=== PATIENT | female | born 1950 | race Caucasian/White ===

== ENCOUNTER 2019-09-17 04:12 | Emergency (ER) | payer MEDICARE, OTHER ==
[~2019-09-17] VITALS: Ht 165.1 cm; Wt 63.2 kg
[~2019-09-17 04:12] MED LIST: HYDR-3973 PO; INSU100V36 SQ; INSU100V9 SQ; LEVO750T46 PO; LISI-600 PO; WALKERFR
[2019-09-17] MEDS ORDERED: CLIN-97 PO (04:40)
[2019-09-17 04:54] VITALS: BP 160/84
== END 2019-09-17 05:15 | disposition home or self-care (01) ==
LOC: ER 04:13
DX: L03.011 Cellulitis of right finger (principal); I10 Essential (primary) hypertension; E11.9 Type 2 diabetes mellitus without complications; M19.90 Unspecified osteoarthritis, unspecified site; Z85.9 Personal history of malignant neoplasm, unspecified; Z90.710 Acquired absence of both cervix and uterus; Z88.8 Allergy status to other drugs, medicaments and biological substances; Z79.4 Long term (current) use of insulin; Z79.899 Other long term (current) drug therapy
CPT/HCPCS: 73130; 99283

== ENCOUNTER → 2020-02-19 | Emergency (ER) | payer MEDICARE ==
[~2020-02-19] VITALS: Ht 165.1 cm; Wt 61.4 kg
[~2020-02-19] MED LIST changes: +CLIN-97 PO; +HYDR-4383 PO; +HYDROcodone/acetaminophen 5mg/325mg tablet PO ONE; +ONDA4TAB6 PO; +ondansetron 4mg rapidly disintigrating tab PO ONE
[2020-02-19 14:33] VITALS: BP 167/83
== END | disposition home or self-care (01) ==
LOC: ER 14:20
DX: S52.614A Nondisplaced fracture of right ulna styloid process, initial encounter for closed fracture (principal); S52.501A Unspecified fracture of the lower end of right radius, initial encounter for closed fracture; M79.601 Pain in right arm; I10 Essential (primary) hypertension; E11.9 Type 2 diabetes mellitus without complications; M19.90 Unspecified osteoarthritis, unspecified site; M10.9 Gout, unspecified; Z85.9 Personal history of malignant neoplasm, unspecified; Z90.710 Acquired absence of both cervix and uterus; Z88.8 Allergy status to other drugs, medicaments and biological substances; Z79.2 Long term (current) use of antibiotics; Z79.4 Long term (current) use of insulin; Z79.899 Other long term (current) drug therapy; W18.39XA Other fall on same level, initial encounter; Y93.9 Activity, unspecified; Y92.89 Other specified places as the place of occurrence of the external cause; Y99.8 Other external cause status
CPT/HCPCS: 29125; 73110; 99283

== ENCOUNTER 2020-07-27 17:02 | Emergency (ER) | payer MEDICARE ==
[~2020-07-27] VITALS: Ht 165.1 cm; Wt 68.2 kg
[~2020-07-27 17:02] MED LIST changes: -HYDROcodone/acetaminophen 5mg/325mg tablet PO ONE; -LISI-600 PO; +LISI20TA28 PO; -ondansetron 4mg rapidly disintigrating tab PO ONE
[2020-07-27 18:24] LABS: BASOPHILS # (AUTO) 0.1 X10'3 (0-0.2); BASOPHILS % (AUTO) 1.2 % (0-1); EOSINOPHILS # (AUTO) 0.3 X10'3 (0-0.9); EOSINOPHILS % (AUTO) 4.1 % (0-6); HEMATOCRIT 33.1 % (35.0-45.0); HEMOGLOBIN 11.4 g/dl (12.0-16.0); LYMPHOCYTES # (AUTO) 1.9 X10'3 (1.1-4.8); LYMPHOCYTES % (AUTO) 24.5 % (21-51); MEAN CORPUSCULAR HEMOGLOBIN 28.4 PG (27.0-31.0); MEAN CORPUSCULAR HGB CONC 34.6 g/dL (33.0-36.5); MEAN CORPUSCULAR VOLUME 82.1 FL (78-98); MONOCYTES # (AUTO) 0.7 X10'3 (0-0.9); MONOCYTES % (AUTO) 9.5 % (2-12); NEUTROPHILS # (AUTO) 4.6 X10'3 (1.8-7.7); NEUTROPHILS % (AUTO) 60.7 % (42-75); PLATELET COUNT 242 X10'3 (140-440); RED BLOOD COUNT 4.03 X10'6 (4.20-5.60); RED CELL DISTRIBUTION WIDTH 12.9 % (11.5-14.5); WHITE BLOOD COUNT 7.5 X10'3 (4.5-11.0)
[2020-07-27 18:38] LABS: ALANINE AMINOTRANSFERASE 16 U/L (12-78); ALBUMIN 2.8 G/DL (3.4-5.0); ALBUMIN/GLOBULIN RATIO 0.6 (1.1-1.5); ALKALINE PHOSPHATASE 248 IU/L (46-116); ANION GAP 5 (8-16); ASPARTATE AMINO TRANSFERASE 12 U/L (10-37); BILIRUBIN,TOTAL 0.3 MG/DL (0.1-1.0); BLOOD UREA NITROGEN 27 MG/DL (7-18); BUN/CREATININE RATIO 30.3 (6.6-38.0); CALCIUM 9.2 MG/DL (8.5-10.1); CHLORIDE 99 MMOL/L (99-107); CREATININE 0.89 MG/DL (0.40-0.90); GLUCOSE 232 MG/DL (70-104); POTASSIUM 4.5 MMOL/L (3.5-5.1); SODIUM 135 MMOL/L (135-145); TOTAL CARBON DIOXIDE 31.4 MMOL/L (24-32); TOTAL PROTEIN 7.2 G/DL (6.4-8.2); eGFR 63 ML/MIN
[2020-07-27] MEDS ORDERED: mupirocin 2% ointment 22GM TP STA (18:59)
[2020-07-27] MEDS ORDERED: ketorolac tromethamine 15mg/ml inj. IM ONE (19:10)
[2020-07-27 19:57] VITALS: BP 167/87
== END 2020-07-27 19:45 | disposition home or self-care (01) ==
LOC: ER 17:03
DX: S91.001A Unspecified open wound, right ankle, initial encounter (principal); M25.571 Pain in right ankle and joints of right foot; M54.5 Low back pain; I10 Essential (primary) hypertension; E11.9 Type 2 diabetes mellitus without complications; M19.90 Unspecified osteoarthritis, unspecified site; M79.7 Fibromyalgia; M10.9 Gout, unspecified; Z90.710 Acquired absence of both cervix and uterus; Z85.9 Personal history of malignant neoplasm, unspecified; Z88.8 Allergy status to other drugs, medicaments and biological substances; Z79.2 Long term (current) use of antibiotics; Z79.4 Long term (current) use of insulin; Z79.899 Other long term (current) drug therapy; X58.XXXA Exposure to other specified factors, initial encounter; Y93.89 Activity, other specified; Y92.89 Other specified places as the place of occurrence of the external cause; Y99.8 Other external cause status
CPT/HCPCS: 36415; 73502; 73600; 80053; 85025; 96372; 99284; J1885

== ENCOUNTER 2021-01-05 02:29 | Inpatient (IN) | payer MEDICARE ==
[~2021-01-05] VITALS: Ht 165.1 cm; Wt 76.8 kg
[~2021-01-05 02:29] MED LIST changes: -CLIN-97 PO; -HYDR-3973 PO; -HYDR-4383 PO; -LEVO750T46 PO; -LISI20TA28 PO; -ONDA4TAB6 PO; -WALKERFR
[2021-01-05] MEDS ORDERED: morphine 4 MG/ML inj SYRINge IV ONE (02:50)
[2021-01-05 03:14] LABS: BASOPHILS # (AUTO) 0.1 X10'3 (0-0.2); BASOPHILS % (AUTO) 0.8 % (0-1); EOSINOPHILS # (AUTO) 0.2 X10'3 (0-0.9); EOSINOPHILS % (AUTO) 2.5 % (0-6); HEMATOCRIT 34.6 % (35.0-45.0); HEMOGLOBIN 11.8 g/dl (12.0-16.0); LYMPHOCYTES # (AUTO) 2.2 X10'3 (1.1-4.8); LYMPHOCYTES % (AUTO) 27.1 % (21-51); MEAN CORPUSCULAR HEMOGLOBIN 28.3 PG (27.0-31.0); MEAN CORPUSCULAR HGB CONC 34.1 g/dL (33.0-36.5); MEAN CORPUSCULAR VOLUME 83.1 FL (78-98); MONOCYTES # (AUTO) 0.6 X10'3 (0-0.9); MONOCYTES % (AUTO) 7.9 % (2-12); NEUTROPHILS % (AUTO) 61.7 % (42-75); PLATELET COUNT 339 X10'3 (140-440); RED BLOOD COUNT 4.17 X10'6 (4.20-5.60); RED CELL DISTRIBUTION WIDTH 12.7 % (11.5-14.5)
[2021-01-05 03:36] LABS: ALANINE AMINOTRANSFERASE 17 U/L (12-78); ALBUMIN 3.5 G/DL (3.4-5.0); ALBUMIN/GLOBULIN RATIO 0.8 (1.1-1.5); ALKALINE PHOSPHATASE 155 IU/L (46-116); ANION GAP 7 (8-16); ASPARTATE AMINO TRANSFERASE 17 U/L (10-37); BILIRUBIN,TOTAL 0.4 MG/DL (0.1-1.0); BLOOD UREA NITROGEN 43 MG/DL (7-18); BUN/CREATININE RATIO 44.8 (6.6-38.0); CALCIUM 9.1 MG/DL (8.5-10.1); CHLORIDE 102 MMOL/L (99-107); CREATININE 0.96 MG/DL (0.40-0.90); GLUCOSE 246 MG/DL (70-104); POTASSIUM 4.3 MMOL/L (3.5-5.1); SODIUM 140 MMOL/L (135-145); TOTAL CARBON DIOXIDE 30.9 MMOL/L (24-32); TOTAL PROTEIN 7.9 G/DL (6.4-8.2); eGFR 57 ML/MIN
--- NOTE | 2021-01-05 04:28 | NUR ---
pt is comfortably resting. equal rise and fall of chest
[2021-01-05] MEDS ORDERED: HYDROcodone/acetaminophen 5mg/325mg tablet PO PRN (05:15)
[2021-01-05] MEDS ORDERED: MESSAGE TO PHARMACY PO ONE (05:15)
[2021-01-05] MEDS ORDERED: morphine 2 MG/ML inj. syringe IV PRN (05:15)
[2021-01-05] MEDS ORDERED: potassium Cl 20 mEq SR tablet PO PRN ×2 (05:15)
[2021-01-05] MEDS ORDERED: potassium Cl 40MEQ/1/2NS 520ml 520 ML IV PRN ×2 (05:15)
[2021-01-05] MEDS ORDERED: mag hydrox/Alum hydrox/simeth 30ml oral suspension PO PRN (05:15)
[2021-01-05] MEDS ORDERED: magnesium Cl slow-release 64mg tablet PO PRN (05:15)
[2021-01-05] MEDS ORDERED: magnesium 2GM in 50ml NS 50 ML IV PRN (05:15)
[2021-01-05] MEDS ORDERED: dextrose 50%-water 50ml dispensing syringe IV PRN ×2 (05:15)
[2021-01-05] MEDS ORDERED: dextrose ORAL solution 15 GM/59 ML bottle PO PRN ×2 (05:15)
[2021-01-05] MEDS ORDERED: ondansetron/PF 4mg/2ml inj IV PRN (05:15)
[2021-01-05] MEDS ORDERED: acetaminophen 325mg tablet PO PRN ×2 (05:15)
[2021-01-05] MEDS ORDERED: glucagon, human recombinant 1mg kit SUBCUT PRN (05:15)
[2021-01-05] MEDS ORDERED: magnesium 4gm in 100ml NS 100 ML IV PRN (05:15)
[2021-01-05] MEDS ORDERED: magnesium hydroxide 30ml (MOM) UD suspension PO PRN (05:15)
[2021-01-05] MEDS: normal saline 1000ml 1,000 ML IV SCH ×2 (05:30→15:47)
[2021-01-05] MEDS ORDERED: LISI20TA28 PO (05:42)
--- NOTE | 2021-01-05 07:19 | NUR ---
RN TRIES TO CALL REPORT TO ORTHO BUT THE PHONE KEPT RINGING WITH NO ANSWER AFTER 10 MINUTES. THI RN CALLED THE FLOOR AGAIN AND THIS RN WAS TOLD THE RN WAS THE ONLY NURSE ON HER SIDE OF THE UNIT AND WAS PROBABLY IN A PATIENTS ROOM. tHIS RN WILL TRY TO CALL BACK IN ANOTHER 10 MINUTES.
--- NOTE | 2021-01-05 07:40 | NUR ---
I have received report from YARELI BALDWIN IN ER and had the opportunity to ask questions. WILL AWAIT PTS ARRIVAL TO THE FLOOR
--- NOTE | 2021-01-05 07:40 | NUR ---
I have received report from and had the opportunity to ask questions and assume patient care.
[2021-01-05 08:00] VITALS: BP 160/70
[2021-01-05] MEDS: heparin, porcine 5000 units/ml vial SQ SCH ×2 (08:00→19:28)
[2021-01-05] MEDS: K and/or MAG REPLACEMENT MC SCH ×2 (08:00→19:42)
[2021-01-05 09:47] LABS: HEMOGLOBIN A1C 10.7 % (4.5-6.2)
[2021-01-05 10:00] VITALS: BP 179/75
--- NOTE | 2021-01-05 11:27 | NUR ---
PAGER ID: [phone] MESSAGE: Patient Norma Spencer BP is 178/75. patient is asleep, also can she have a mcknight for her hip fracture. Leeann [phone]
--- NOTE | 2021-01-05 13:27 | NUR ---
DM consult: Pt with A1c 10.7%, just admitted today. Pt would benefit from DM education once stable. Pt last seen by RD 09/11 at previous admit for written and verbal DM education with A1c 10.5% at that time. Will continue to follow. Addendum: 01/05/21 at [address] Amended: Links added.
[2021-01-05] MEDS: HYDROcodone/acetaminophen 10/325mg tab PO PRN ×2 (13:43→19:29)
[2021-01-05] MEDS ORDERED: LIDOcaine 2% 10ml TOPICAL JELLY (Urojet) TP ONE (14:25)
[2021-01-05 15:51] VITALS: BP 151/71
[2021-01-05] MEDS: lisinopril 20mg tablet PO SCH (15:54)
[2021-01-05] MEDS ORDERED: ringers solution, lacted 1,000 ML IV ONE (17:25)
[2021-01-05 18:00] VITALS: BP 166/72
--- NOTE | 2021-01-05 18:34 | NUR ---
Problems reprioritized. Patient report given, questions answered & plan of care reviewed with YARELI WAITE.
[2021-01-05] MEDS ORDERED: temazepam 15mg capsule PO PRN (21:00)
[2021-01-05] MEDS: insulin glargine (Lantus) pen - multi-dose SQ SCH (21:16)
[2021-01-05 22:00] VITALS: BP 158/68
[2021-01-06] VITALS (19 sets, daily range): BP systolic 121–179; BP diastolic 54–82
[2021-01-06] MEDS: normal saline 1000ml 1,000 ML IV SCH ×3 (01:15→18:53)
[2021-01-06] MEDS: HYDROcodone/acetaminophen 10/325mg tab PO PRN ×3 (03:18→18:46)
[2021-01-06] MEDS ORDERED: famotidine/PF 10 mg/ml inj IV ONE (06:00)
[2021-01-06 06:32] LABS: BASOPHILS % (AUTO) 0.9 % (0-1); EOSINOPHILS # (AUTO) 0.2 X10'3 (0-0.9); EOSINOPHILS % (AUTO) 4.1 % (0-6); HEMATOCRIT 29.6 % (35.0-45.0); LYMPHOCYTES # (AUTO) 1.9 X10'3 (1.1-4.8); LYMPHOCYTES % (AUTO) 38.8 % (21-51); MEAN CORPUSCULAR HEMOGLOBIN 28.3 PG (27.0-31.0); MEAN CORPUSCULAR HGB CONC 33.6 g/dL (33.0-36.5); MEAN CORPUSCULAR VOLUME 84.2 FL (78-98); MEAN PLATELET VOLUME 6.8 FL (7.4-10.4); MONOCYTES # (AUTO) 0.4 X10'3 (0-0.9); MONOCYTES % (AUTO) 7.8 % (2-12); NEUTROPHILS # (AUTO) 2.4 X10'3 (1.8-7.7); NEUTROPHILS % (AUTO) 48.4 % (42-75); PLATELET COUNT 245 X10'3 (140-440); RED BLOOD COUNT 3.52 X10'6 (4.20-5.60); RED CELL DISTRIBUTION WIDTH 12.7 % (11.5-14.5)
[2021-01-06] MEDS: heparin, porcine 5000 units/ml vial SQ SCH ×2 (06:39→23:32)
--- NOTE | 2021-01-06 06:47 | NUR ---
Patient in room ORTHO 4012. I have received report from krys sheriff and had the opportunity to ask questions and assume patient care.
[2021-01-06 06:51] LABS: ALANINE AMINOTRANSFERASE 15 U/L (12-78); ALBUMIN 2.4 G/DL (3.4-5.0); ALBUMIN/GLOBULIN RATIO 0.7 (1.1-1.5); ALKALINE PHOSPHATASE 180 IU/L (46-116); ANION GAP 4 (8-16); ASPARTATE AMINO TRANSFERASE 17 U/L (10-37); BILIRUBIN,TOTAL 0.2 MG/DL (0.1-1.0); BLOOD UREA NITROGEN 26 MG/DL (7-18); CALCIUM 8.1 MG/DL (8.5-10.1); CHLORIDE 110 MMOL/L (99-107); CREATININE 0.65 MG/DL (0.40-0.90); GLUCOSE 88 MG/DL (70-104); MAGNESIUM 1.6 MG/DL (1.5-2.4); SODIUM 144 MMOL/L (135-145); TOTAL CARBON DIOXIDE 30.1 MMOL/L (24-32); TOTAL PROTEIN 5.7 G/DL (6.4-8.2); eGFR 90 ML/MIN
[2021-01-06] MEDS: K and/or MAG REPLACEMENT MC SCH ×2 (07:11→20:00)
[2021-01-06] MEDS: lisinopril 20mg tablet PO SCH (07:42)
[2021-01-06] MEDS ORDERED: BUPIVAcaine/PF 2.5mg/ml (0.25%) 10ml vial ONE (09:08)
[2021-01-06] MEDS: dextrose 5%-lactated ringers 1,000 ML IV SCH (09:35)
[2021-01-06] MEDS ORDERED: sevoflurane 250ml liquid IH ONE (09:53)
[2021-01-06] MEDS ORDERED: labetalol 20mg/4ml (5mg/ml) syringe IV PRN (09:55)
[2021-01-06] MEDS ORDERED: ondansetron/PF 4mg/2ml inj IV PRN (09:55)
[2021-01-06] MEDS ORDERED: hydrALAZINE 20mg/ml inj. IV PRN (09:55)
[2021-01-06] MEDS ORDERED: meperidine/PF 25mg/ml syringe IV PRN ×3 (09:55)
[2021-01-06] MEDS ORDERED: proCHLORperazine 10 MG/2 ml inj IV PRN (09:55)
[2021-01-06] MEDS ORDERED: morphine 2 MG/ML inj. syringe IV PRN (09:55)
[2021-01-06] MEDS ORDERED: acetaminophen 1,000mg/100ml IV 100 ML IV PRN (09:55)
[2021-01-06] MEDS ORDERED: morphine 4 MG/ML inj SYRINge IV PRN (09:55)
[2021-01-06] MEDS ORDERED: ringers solution, lacted 1,000 ML IV SCH (09:55)
[2021-01-06] MEDS ORDERED: midazolam 1 mg/ML 2ml injection ONE (09:58)
[2021-01-06] MEDS ORDERED: fentaNYL /PF 50mcg/ml 5ml ampule ONE (10:04)
[2021-01-06] MEDS ORDERED: ceFAZolin 1000mg inj ONE ×2 (10:20)
[2021-01-06] MEDS ORDERED: rocuronium 10mg/ml inj IV ONE (10:20)
[2021-01-06] MEDS ORDERED: LIDOcaine 2% (20mg/ml) 5ml vial ONE (10:20)
[2021-01-06] MEDS ORDERED: propofol inj 20 ML IV ONE (10:20)
[2021-01-06] MEDS ORDERED: dexamethasone sod phosphate 4mg/ml inj. ONE (10:33)
[2021-01-06] MEDS ORDERED: ondansetron/PF 4mg/2ml inj ONE (10:34)
[2021-01-06] MEDS ORDERED: vancomycin 1,000mg inj ONE (10:34)
[2021-01-06] MEDS ORDERED: morphine 10mg/ml inj. ONE (11:16)
[2021-01-06] MEDS ORDERED: glycopyrrolate 0.2mg/ml inj ONE (11:19)
[2021-01-06] MEDS ORDERED: neostigmine methylsulfate 1 MG/ML 10ml vial ONE (11:19)
--- NOTE | 2021-01-06 11:40 | NUR ---
Received from OR via , accompanied by Anesthesiologist DR MCKEON and report given by Anesthesiolgist. PT PRESENTS WITH 20G RIGHT AC, RIGHT HIP DRESSING DRY AND INTACT. VSS. Addendum: 01/06/21 at 1154 by Avril Montenegro RN, RN Amended: Links added.
--- NOTE | 2021-01-06 12:40 | NUR ---
PATIENT HAS MET ALL CRITERIA FOR TRANSFER TO THE [address] VSS. DRESSINGS INTACT. BED LOW, CALL LIGHT PRESENT AND 2 RAILS UP. SIMEON DOWNS PRESENT TO ACCEPT CARE OF PATIENT AND REPORT HAS BEEN CALLED. ALL QUESTIONS ANSWERED TO ACCEPTING RN. Addendum: 01/06/21 at 1300 by Avril Montenegro RN RN Amended: Links added.
[2021-01-06] MEDS: ceFAZolin/D5W- 1GM premix 50 ML IV SCH (16:18)
--- NOTE | 2021-01-06 18:32 | NUR ---
Problems reprioritized. Patient report given, questions answered & plan of care reviewed with ESTELA DOWNS.
[2021-01-06] MEDS: insulin Lispro (HumaLOG) vial - multi-dose SQ SCH (20:02)
[2021-01-06] MEDS: nystatin 15 GM powder TP SCH (21:00)
[2021-01-06] MEDS: insulin glargine (Lantus) pen - multi-dose SQ SCH (23:17)
[2021-01-06] MEDS: morphine 2 MG/ML inj. syringe IV PRN (23:24)
[2021-01-07] VITALS (7 sets, daily range): BP systolic 120–148; BP diastolic 46–69
[2021-01-07] MEDS: ceFAZolin/D5W- 1GM premix 50 ML IV SCH ×3 (00:29→16:18)
[2021-01-07] MEDS: HYDROcodone/acetaminophen 10/325mg tab PO PRN ×5 (01:59→19:59)
[2021-01-07] MEDS: normal saline 1000ml 1,000 ML IV SCH ×2 (03:30→13:09)
[2021-01-07] MEDS: morphine 2 MG/ML inj. syringe IV PRN ×3 (04:52→21:29)
[2021-01-07] MEDS: dextrose 5%-lactated ringers 1,000 ML IV SCH ×2 (05:35→21:13)
[2021-01-07 06:31] LABS: BASOPHILS % (AUTO) 0.5 % (0-1); EOSINOPHILS # (AUTO) 0.1 X10'3 (0-0.9); EOSINOPHILS % (AUTO) 0.8 % (0-6); HEMATOCRIT 25.7 % (35.0-45.0); HEMOGLOBIN 8.7 g/dl (12.0-16.0); LYMPHOCYTES # (AUTO) 1.3 X10'3 (1.1-4.8); LYMPHOCYTES % (AUTO) 17.5 % (21-51); MEAN CORPUSCULAR HEMOGLOBIN 28.6 PG (27.0-31.0); MEAN CORPUSCULAR VOLUME 84.2 FL (78-98); MEAN PLATELET VOLUME 6.8 FL (7.4-10.4); MONOCYTES # (AUTO) 0.7 X10'3 (0-0.9); MONOCYTES % (AUTO) 9.6 % (2-12); NEUTROPHILS # (AUTO) 5.2 X10'3 (1.8-7.7); NEUTROPHILS % (AUTO) 71.6 % (42-75); PLATELET COUNT 268 X10'3 (140-440); RED BLOOD COUNT 3.06 X10'6 (4.20-5.60); RED CELL DISTRIBUTION WIDTH 12.9 % (11.5-14.5); WHITE BLOOD COUNT 7.3 X10'3 (4.5-11.0)
[2021-01-07 06:51] LABS: ALANINE AMINOTRANSFERASE 17 U/L (12-78); ALBUMIN 2.1 G/DL (3.4-5.0); ALBUMIN/GLOBULIN RATIO 0.7 (1.1-1.5); ALKALINE PHOSPHATASE 164 IU/L (46-116); ANION GAP 5 (8-16); ASPARTATE AMINO TRANSFERASE 16 U/L (10-37); BILIRUBIN,TOTAL 0.2 MG/DL (0.1-1.0); BLOOD UREA NITROGEN 24 MG/DL (7-18); CALCIUM 7.8 MG/DL (8.5-10.1); CHLORIDE 107 MMOL/L (99-107); CREATININE 0.89 MG/DL (0.40-0.90); GLUCOSE 129 MG/DL (70-104); MAGNESIUM 1.5 MG/DL (1.5-2.4); POTASSIUM 4.8 MMOL/L (3.5-5.1); SODIUM 141 MMOL/L (135-145); TOTAL PROTEIN 5.3 G/DL (6.4-8.2); eGFR 62 ML/MIN
[2021-01-07] MEDS: lisinopril 20mg tablet PO SCH (07:50)
[2021-01-07] MEDS: heparin, porcine 5000 units/ml vial SQ SCH ×2 (07:51→19:59)
[2021-01-07] MEDS: K and/or MAG REPLACEMENT MC SCH ×2 (08:00→20:00)
[2021-01-07] MEDS: nystatin 15 GM powder TP SCH ×3 (10:00→19:58)
[2021-01-07] MEDS: insulin Lispro (HumaLOG) vial - multi-dose SQ SCH ×2 (10:02→19:37)
--- NOTE | 2021-01-07 12:31 | NUR ---
F/u 01/07: Pt seen by RD for written/verbal DM education w/ RD contact information provided. Pt reports knowing she needs to check GLU and take meds per Rx however "has been bad" and does not always check GLU or take meds per Rx. RD encouraged importance of taking meds per Rx and routine GLU checks. Pt reports does not have time since takes care of blind sister as well as elderly mother whom she lives with. Pt reports unable to afford insulin as well r/t increasing costs; RD reviewed this w/ CM who reports pt has adequate insurance coverage and insulin should not be costly for pt. Pt prior recent admit reported not checking GLU or taking meds since didn't want to get up during RD visit at that time. RD encouraged pt to contact dietitian's office if further questions/concerns. Addendum: 01/07/21 at [address] Amended: Links added.
--- NOTE | 2021-01-07 18:32 | NUR ---
Problems reprioritized. Patient report given, questions answered & plan of care reviewed with tawana sheriff.
--- NOTE | 2021-01-07 18:35 | NUR ---
Patient in room ORTHO 4012. I have received report from Maggi DOWNS and had the opportunity to ask questions and assume patient care.
[2021-01-07] MEDS ORDERED: diphenhydrAMINE 25mg capsule PO ONE ×2 (20:10→20:15)
[2021-01-07] MEDS: insulin glargine (Lantus) pen - multi-dose SQ SCH (21:55)
[2021-01-08] MEDS: HYDROcodone/acetaminophen 10/325mg tab PO PRN ×5 (00:40→21:20)
[2021-01-08] MEDS: normal saline 1000ml 1,000 ML IV SCH ×3 (03:15→23:15)
[2021-01-08 06:00] VITALS: BP 145/53
--- NOTE | 2021-01-08 06:30 | NUR ---
Problems reprioritized. Patient report given, questions answered & plan of care reviewed with Donna.
--- NOTE | 2021-01-08 06:48 | NUR ---
Patient in room ORTHO 4012. I have received report from tawana sheriff and had the opportunity to ask questions and assume patient care.
[2021-01-08] MEDS: morphine 2 MG/ML inj. syringe IV PRN ×2 (06:53→13:07)
[2021-01-08 06:56] LABS: BASOPHILS % (AUTO) 0.5 % (0-1); EOSINOPHILS # (AUTO) 0.1 X10'3 (0-0.9); EOSINOPHILS % (AUTO) 2.2 % (0-6); HEMATOCRIT 23.2 % (35.0-45.0); HEMOGLOBIN 7.8 g/dl (12.0-16.0); LYMPHOCYTES % (AUTO) 16.9 % (21-51); MEAN CORPUSCULAR HGB CONC 33.5 g/dL (33.0-36.5); MEAN CORPUSCULAR VOLUME 83.6 FL (78-98); MEAN PLATELET VOLUME 7.4 FL (7.4-10.4); MONOCYTES # (AUTO) 0.6 X10'3 (0-0.9); MONOCYTES % (AUTO) 9.9 % (2-12); NEUTROPHILS # (AUTO) 4.2 X10'3 (1.8-7.7); NEUTROPHILS % (AUTO) 70.5 % (42-75); PLATELET COUNT 182 X10'3 (140-440); RED BLOOD COUNT 2.77 X10'6 (4.20-5.60); RED CELL DISTRIBUTION WIDTH 12.8 % (11.5-14.5); WHITE BLOOD COUNT 5.9 X10'3 (4.5-11.0)
[2021-01-08] MEDS: heparin, porcine 5000 units/ml vial SQ SCH ×2 (07:00→21:21)
[2021-01-08] MEDS: nystatin 15 GM powder TP SCH ×2 (07:01→13:07)
[2021-01-08] MEDS: lisinopril 20mg tablet PO SCH (07:02)
[2021-01-08 07:18] LABS: ALANINE AMINOTRANSFERASE 15 U/L (12-78); ALBUMIN 1.9 G/DL (3.4-5.0); ALBUMIN/GLOBULIN RATIO 0.6 (1.1-1.5); ALKALINE PHOSPHATASE 215 IU/L (46-116); ANION GAP 5 (8-16); ASPARTATE AMINO TRANSFERASE 22 U/L (10-37); BILIRUBIN,TOTAL 0.2 MG/DL (0.1-1.0); BLOOD UREA NITROGEN 22 MG/DL (7-18); BUN/CREATININE RATIO 28.2 (6.6-38.0); CALCIUM 7.8 MG/DL (8.5-10.1); CHLORIDE 106 MMOL/L (99-107); CREATININE 0.78 MG/DL (0.40-0.90); GLUCOSE 203 MG/DL (70-104); MAGNESIUM 1.4 MG/DL (1.5-2.4); POTASSIUM 4.3 MMOL/L (3.5-5.1); SODIUM 138 MMOL/L (135-145); TOTAL CARBON DIOXIDE 26.9 MMOL/L (24-32); TOTAL PROTEIN 5.1 G/DL (6.4-8.2); eGFR 73 ML/MIN
[2021-01-08] MEDS: insulin Lispro (HumaLOG) vial - multi-dose SQ SCH (08:52)
[2021-01-08 10:00] VITALS: BP 102/63
--- NOTE | 2021-01-08 11:46 | NUR ---
PAGER ID: [phone] MESSAGE: areli sheriff [phone] re: Norma Joya [id number]. NEED K/MAG REPLACE. ALSO PT REQUESTING CHOPPED DIET.
[2021-01-08] MEDS ORDERED: potassium Cl 20 mEq SR tablet PO PRN ×2 (12:25)
[2021-01-08] MEDS ORDERED: magnesium 4gm in 100ml NS 100 ML IV PRN (12:25)
[2021-01-08] MEDS ORDERED: potassium Cl 40MEQ/1/2NS 520ml 520 ML IV PRN ×2 (12:25)
[2021-01-08] MEDS ORDERED: magnesium Cl slow-release 64mg tablet PO PRN (12:25)
[2021-01-08] MEDS ORDERED: magnesium 2GM in 50ml NS 50 ML IV PRN (12:25)
--- NOTE | 2021-01-08 13:30 | NUR ---
pt has yet to void, bladder scanned a 1330. Bladder scan volume 221. Will continue to monitor
--- NOTE | 2021-01-08 16:51 | NUR ---
bladder scan volume 552. will straight cath per pro.
[2021-01-08] MEDS: dextrose 5%-lactated ringers 1,000 ML IV SCH (17:11)
[2021-01-08 18:00] VITALS: BP 131/56
--- NOTE | 2021-01-08 18:00 | NUR ---
Patient in room ORTHO 4012. I have received report from Donna DOWNS and had the opportunity to ask questions and assume patient care. Addendum: 01/09/21 at 0016 by Karen Bosch RN Amended: Links added.
--- NOTE | 2021-01-08 19:08 | NUR ---
Problems reprioritized. Patient report given, questions answered & plan of care reviewed with juan sheriff.
[2021-01-08] MEDS: K and/or MAG REPLACEMENT MC SCH (20:00)
--- NOTE | 2021-01-08 21:20 | NUR ---
Pt. awake A & O x 4 at this time. C/o Rt leg and lower back pain, leg with JASPREET drg in place. Pt. medicated with prn as ordered. No hypoglycemic event at this time. Call light within reach Addendum: 01/09/21 at 0044 by Karen Bosch RN Amended: Links added.
[2021-01-08 21:30] VITALS: BP 159/62
[2021-01-08] MEDS: insulin glargine (Lantus) pen - multi-dose SQ SCH (21:37)
[2021-01-08 22:00] VITALS: BP 98/63
[2021-01-09] MEDS: HYDROcodone/acetaminophen 10/325mg tab PO PRN ×5 (01:17→21:20)
[2021-01-09] MEDS: nystatin 15 GM powder TP SCH ×4 (01:27→21:20)
[2021-01-09] MEDS: morphine 2 MG/ML inj. syringe IV PRN ×3 (04:22→17:17)
[2021-01-09 06:02] LABS: BASOPHILS % (AUTO) 0.4 % (0-1); EOSINOPHILS # (AUTO) 0.1 X10'3 (0-0.9); EOSINOPHILS % (AUTO) 1.6 % (0-6); HEMATOCRIT 24.9 % (35.0-45.0); HEMOGLOBIN 8.3 g/dl (12.0-16.0); LYMPHOCYTES # (AUTO) 1.2 X10'3 (1.1-4.8); LYMPHOCYTES % (AUTO) 15.5 % (21-51); MEAN CORPUSCULAR HEMOGLOBIN 28.4 PG (27.0-31.0); MEAN CORPUSCULAR HGB CONC 33.4 g/dL (33.0-36.5); MEAN CORPUSCULAR VOLUME 85.2 FL (78-98); MEAN PLATELET VOLUME 7.5 FL (7.4-10.4); MONOCYTES # (AUTO) 0.9 X10'3 (0-0.9); MONOCYTES % (AUTO) 10.8 % (2-12); NEUTROPHILS # (AUTO) 5.8 X10'3 (1.8-7.7); NEUTROPHILS % (AUTO) 71.7 % (42-75); PLATELET COUNT 220 X10'3 (140-440); RED BLOOD COUNT 2.92 X10'6 (4.20-5.60); RED CELL DISTRIBUTION WIDTH 13.1 % (11.5-14.5)
--- NOTE | 2021-01-09 06:24 | NUR ---
reported to days. noted pt painful but given norco and morphine earlier.
[2021-01-09 06:30] VITALS: BP 122/51
[2021-01-09 06:30] LABS: ALANINE AMINOTRANSFERASE 14 U/L (12-78); ALBUMIN 2.1 G/DL (3.4-5.0); ALBUMIN/GLOBULIN RATIO 0.6 (1.1-1.5); ALKALINE PHOSPHATASE 246 IU/L (46-116); ANION GAP 5 (8-16); ASPARTATE AMINO TRANSFERASE 22 U/L (10-37); BILIRUBIN,TOTAL 0.3 MG/DL (0.1-1.0); BLOOD UREA NITROGEN 21 MG/DL (7-18); BUN/CREATININE RATIO 28.8 (6.6-38.0); CALCIUM 8.2 MG/DL (8.5-10.1); CHLORIDE 104 MMOL/L (99-107); CREATININE 0.73 MG/DL (0.40-0.90); GLUCOSE 115 MG/DL (70-104); MAGNESIUM 1.7 MG/DL (1.5-2.4); POTASSIUM 4.1 MMOL/L (3.5-5.1); SODIUM 137 MMOL/L (135-145); TOTAL CARBON DIOXIDE 28.4 MMOL/L (24-32); TOTAL PROTEIN 5.8 G/DL (6.4-8.2); eGFR 78 ML/MIN
[2021-01-09] MEDS: heparin, porcine 5000 units/ml vial SQ SCH ×2 (07:00→21:06)
[2021-01-09] MEDS: lisinopril 20mg tablet PO SCH (07:02)
[2021-01-09] MEDS: K and/or MAG REPLACEMENT MC SCH ×2 (08:00→20:00)
[2021-01-09 10:00] VITALS: BP 137/61
[2021-01-09] MEDS: insulin Lispro (HumaLOG) vial - multi-dose SQ SCH (13:55)
[2021-01-09 18:00] VITALS: BP 158/56
--- NOTE | 2021-01-09 18:43 | NUR ---
Problems reprioritized. Patient report given, questions answered & plan of care reviewed with rik sheriff.
[2021-01-09] MEDS: insulin glargine (Lantus) pen - multi-dose SQ SCH (21:15)
[2021-01-10] VITALS (15 sets, daily range): BP systolic 118–188; BP diastolic 53–78
[2021-01-10] MEDS: HYDROcodone/acetaminophen 10/325mg tab PO PRN ×3 (03:34→23:23)
[2021-01-10 06:04] LABS: BASOPHILS % (AUTO) 0.4 % (0-1); EOSINOPHILS # (AUTO) 0.2 X10'3 (0-0.9); EOSINOPHILS % (AUTO) 2.5 % (0-6); HEMOGLOBIN 7.1 g/dl (12.0-16.0); LYMPHOCYTES # (AUTO) 1.4 X10'3 (1.1-4.8); LYMPHOCYTES % (AUTO) 21.4 % (21-51); MEAN CORPUSCULAR VOLUME 85.1 FL (78-98); MEAN PLATELET VOLUME 7.6 FL (7.4-10.4); MONOCYTES # (AUTO) 0.7 X10'3 (0-0.9); NEUTROPHILS # (AUTO) 4.2 X10'3 (1.8-7.7); NEUTROPHILS % (AUTO) 64.7 % (42-75); PLATELET COUNT 189 X10'3 (140-440); RED BLOOD COUNT 2.46 X10'6 (4.20-5.60); RED CELL DISTRIBUTION WIDTH 13.2 % (11.5-14.5); WHITE BLOOD COUNT 6.5 X10'3 (4.5-11.0)
[2021-01-10 06:15] LABS: HEMATOCRIT 20.9 % (35.0-45.0)
--- NOTE | 2021-01-10 06:29 | NUR ---
Patient in room ORTHO 4012. I have received report from rik rn and had the opportunity to ask questions and assume patient care.
[2021-01-10 06:34] LABS: ALANINE AMINOTRANSFERASE 15 U/L (12-78); ALBUMIN 1.7 G/DL (3.4-5.0); ALBUMIN/GLOBULIN RATIO 0.5 (1.1-1.5); ALKALINE PHOSPHATASE 277 IU/L (46-116); ANION GAP 7 (8-16); ASPARTATE AMINO TRANSFERASE 20 U/L (10-37); BILIRUBIN,TOTAL 0.3 MG/DL (0.1-1.0); BLOOD UREA NITROGEN 20 MG/DL (7-18); BUN/CREATININE RATIO 25.3 (6.6-38.0); CHLORIDE 103 MMOL/L (99-107); CREATININE 0.79 MG/DL (0.40-0.90); GLUCOSE 135 MG/DL (70-104); MAGNESIUM 1.7 MG/DL (1.5-2.4); POTASSIUM 4.5 MMOL/L (3.5-5.1); SODIUM 139 MMOL/L (135-145); TOTAL CARBON DIOXIDE 29.4 MMOL/L (24-32); TOTAL PROTEIN 5.3 G/DL (6.4-8.2); eGFR 72 ML/MIN
--- NOTE | 2021-01-10 06:57 | NUR ---
Page Sent PAGER ID: [phone] MESSAGE: [phone] stephane Joya pt has a critical Hct of 20.9. zane [phone]
--- NOTE | 2021-01-10 07:07 | NUR ---
Page Sent PAGER ID: [phone] MESSAGE: [phone] alvin, pt is also getting heparin, but is not actively bleeding. Do you want that to be held in med pass today? zane [phone]
[2021-01-10] MEDS: K and/or MAG REPLACEMENT MC SCH ×2 (08:00→20:00)
[2021-01-10] MEDS: heparin, porcine 5000 units/ml vial SQ SCH ×2 (08:00→19:06)
[2021-01-10] MEDS: lisinopril 20mg tablet PO SCH (08:52)
[2021-01-10] MEDS: nystatin 15 GM powder TP SCH ×3 (08:53→21:00)
--- NOTE | 2021-01-10 09:13 | NUR ---
paged dr ureña about pt low hct of 20.9. i also asked about pt holding heparin. did not hear anything so i did not administer will wait to hear back from niranjan.
[2021-01-10] MEDS: insulin Lispro (HumaLOG) vial - multi-dose SQ SCH ×3 (09:44→19:06)
--- NOTE | 2021-01-10 10:22 | NUR ---
Page Sent promotional table spacer PAGER ID: [phone] MESSAGE: [phone] stephane esquivel. pt has heparin do you want me to hold it. Hct was 20.9 zane [phone]
--- NOTE | 2021-01-10 10:40 | NUR ---
per dr anderson i non admin heparin because of low hct 20.9
--- NOTE | 2021-01-10 10:48 | NUR ---
Initial: Pt admitted s/p fall w/ R hip fracture, underwent Tyler arthroplasty 01/[address] note 01/08 pt recommended Puree diet, though pt currently has SB6 diet active. Communicated w/ RN about discrepancy, they report Pt should still be on Puree diet. PO intake moderate, avg 48% x 10 meals which meets 61% of est energy needs and 91% of est protein needs. Pt reports decreased appetite r/t leg and back pain. LBM 01/08. No nutritional intervention at this time, will continue to monitor. Recs 1. Puree diet per ST recommendation 2. Bowel care pre rx 3. Weekly wts Addendum: 01/10/21 at [address] Amended: Links added.
--- NOTE | 2021-01-10 13:08 | NUR ---
RECEIVED REPORT FROM MARLENE DOWNS AND ASSUMED PATIENT CARE Addendum: 01/10/21 at 1426 by Estrella Weber RN DID NOT ASSUME CARE OF PATIENT
--- NOTE | 2021-01-10 13:52 | NUR ---
Page Sent PAGER ID: [phone] MESSAGE: [id number] Toan. pt needs an order to receive blood there isnt one. so I am unable to pick blood up from lab. thanks zane [phone]
--- NOTE | 2021-01-10 18:13 | NUR ---
Problems reprioritized. Patient report given, questions answered & plan of care reviewed with Jessenia DOWNS.
[2021-01-10] MEDS: insulin glargine (Lantus) pen - multi-dose SQ SCH (22:02)
[2021-01-11] MEDS: HYDROcodone/acetaminophen 10/325mg tab PO PRN ×3 (03:22→20:01)
[2021-01-11 06:00] VITALS: BP 154/69
--- NOTE | 2021-01-11 08:34 | NUR ---
PAGER ID: [phone] MESSAGE: [id number] Toan frankel? had 2units [facility] yesterday [phone] LEANNE
[2021-01-11] MEDS: K and/or MAG REPLACEMENT MC SCH ×2 (08:45→20:00)
[2021-01-11] MEDS: lisinopril 20mg tablet PO SCH (08:56)
[2021-01-11] MEDS: heparin, porcine 5000 units/ml vial SQ SCH ×2 (08:57→19:20)
[2021-01-11] MEDS: insulin Lispro (HumaLOG) vial - multi-dose SQ SCH ×3 (09:07→19:05)
[2021-01-11 09:39] LABS: BASOPHILS % (AUTO) 0.4 % (0-1); EOSINOPHILS # (AUTO) 0.2 X10'3 (0-0.9); EOSINOPHILS % (AUTO) 3.1 % (0-6); HEMATOCRIT 29.9 % (35.0-45.0); HEMOGLOBIN 9.9 g/dl (12.0-16.0); LYMPHOCYTES # (AUTO) 1.4 X10'3 (1.1-4.8); LYMPHOCYTES % (AUTO) 23.6 % (21-51); MEAN CORPUSCULAR HEMOGLOBIN 27.9 PG (27.0-31.0); MEAN CORPUSCULAR HGB CONC 33.1 g/dL (33.0-36.5); MEAN CORPUSCULAR VOLUME 84.2 FL (78-98); MEAN PLATELET VOLUME 7.3 FL (7.4-10.4); MONOCYTES # (AUTO) 0.8 X10'3 (0-0.9); MONOCYTES % (AUTO) 12.7 % (2-12); NEUTROPHILS # (AUTO) 3.6 X10'3 (1.8-7.7); NEUTROPHILS % (AUTO) 60.2 % (42-75); PLATELET COUNT 259 X10'3 (140-440); RED BLOOD COUNT 3.55 X10'6 (4.20-5.60); RED CELL DISTRIBUTION WIDTH 13.6 % (11.5-14.5); WHITE BLOOD COUNT 5.9 X10'3 (4.5-11.0)
[2021-01-11 09:57] LABS: ALBUMIN 1.8 G/DL (3.4-5.0); CALCIUM 8.2 MG/DL (8.5-10.1); CHLORIDE 103 MMOL/L (99-107); CREATININE 0.62 MG/DL (0.40-0.90); GLUCOSE 128 MG/DL (70-104); TOTAL CARBON DIOXIDE 29.8 MMOL/L (24-32); eGFR > 90 ML/MIN
[2021-01-11 10:00] VITALS: BP 163/62
[2021-01-11 10:02] LABS: ANION GAP 8 (8-16); BLOOD UREA NITROGEN 16 MG/DL (7-18); BUN/CREATININE RATIO 25.8 (6.6-38.0); SODIUM 141 MMOL/L (135-145)
[2021-01-11] MEDS: nystatin 15 GM powder TP SCH ×2 (13:00→20:02)
[2021-01-11 18:00] VITALS: BP 122/79
--- NOTE | 2021-01-11 18:37 | NUR ---
Report to Tiara DOWNS
[2021-01-11] MEDS: insulin glargine (Lantus) pen - multi-dose SQ SCH (20:47)
[2021-01-11 22:00] VITALS: BP 169/79
[2021-01-12] MEDS: HYDROcodone/acetaminophen 10/325mg tab PO PRN ×3 (03:59→15:52)
[2021-01-12 06:00] VITALS: BP 150/78
--- NOTE | 2021-01-12 06:15 | NUR ---
Problems reprioritized. Patient report given, questions answered & plan of care reviewed with sharita Thompson.
--- NOTE | 2021-01-12 06:35 | NUR ---
Patient in room ORTHO 4012. I have received report from Derrek DOWNS and had the opportunity to ask questions and assume patient care.
[2021-01-12] MEDS: lisinopril 20mg tablet PO SCH (07:23)
[2021-01-12] MEDS: heparin, porcine 5000 units/ml vial SQ SCH (07:24)
[2021-01-12] MEDS: nystatin 15 GM powder TP SCH ×2 (07:24→12:04)
[2021-01-12] MEDS: K and/or MAG REPLACEMENT MC SCH (08:00)
[2021-01-12] MEDS ORDERED: lactulose 20gm/30ml cup PO ONE (09:35)
[2021-01-12] MEDS: insulin Lispro (HumaLOG) vial - multi-dose SQ SCH ×2 (09:41→14:08)
[2021-01-12 10:00] VITALS: BP 168/75
[2021-01-12] MEDS ORDERED: bisacodyl 10mg suppository rectal RC STA (11:52)
== END 2021-01-12 16:05 | DRG 522 ==
LOC: ER 02:30 → UNDOADMIN 05:13 → ED HOLD 05:13 → ORTHO 4S 08:27
PROVIDERS: ADMIT Internal Medicine; ATTEND Internal Medicine
PROC: 0SRR0JA Replacement of Right Hip Joint, Femoral Surface with Synthetic Substitute, Uncemented, Open Approach (ICD-10-PCS; principal; 2021-01-06 09:53)
PROC: 0T9B70Z Drainage of Bladder with Drainage Device, Via Natural or Artificial Opening (ICD-10-PCS; 2021-01-09)
PROC: 30233N1 Transfusion of Nonautologous Red Blood Cells into Peripheral Vein, Percutaneous Approach (ICD-10-PCS; 2021-01-10)
DX: S72.011A Unspecified intracapsular fracture of right femur, initial encounter for closed fracture (principal); D62 Acute posthemorrhagic anemia; E11.9 Type 2 diabetes mellitus without complications; G89.29 Other chronic pain; I10 Essential (primary) hypertension; M10.9 Gout, unspecified; M19.90 Unspecified osteoarthritis, unspecified site; M54.30 Sciatica, unspecified side; Z20.822 Contact with and (suspected) exposure to COVID-19; W18.39XA Other fall on same level, initial encounter; M54.5 Low back pain; K59.00 Constipation, unspecified; M79.7 Fibromyalgia; N13.9 Obstructive and reflux uropathy, unspecified; Z79.4 Long term (current) use of insulin; Z88.8 Allergy status to other drugs, medicaments and biological substances; Z90.710 Acquired absence of both cervix and uterus; Y93.89 Activity, other specified; Y92.098 Other place in other non-institutional residence as the place of occurrence of the external cause; Y99.8 Other external cause status; Z91.011 Allergy to milk products; Z79.899 Other long term (current) drug therapy
CPT/HCPCS: 36415; 36430; 71045; 73502; 80048; 80053; 82948; 83036; 83735; 85025; 85610; 86885; 86900; 86901; 86920; 87081; 87635; 92508; 92616; 93005; 93970; 97110; 97116; 97140; 97161; 97530; 99285; A4618; A6454; A7000; A9272; C1776; G0378; J0690; J1100; J1644; J1815; J2001; J2250; J2270; J2405; J2704; J2710; J3010; J3370; J3490; J7030; J7120; J7121; P9016; Q0163

== ENCOUNTER 2021-02-13 23:56 | Inpatient (IN) | payer MEDICARE ==
[~2021-02-13] VITALS: Ht 165.1 cm; Wt 83.0 kg
[~2021-02-13 23:56] MED LIST changes: +LISI20TA28 PO
[2021-02-14 00:45] LABS: BASOPHILS % (AUTO) 0.1 % (0-1); EOSINOPHILS % (AUTO) 0.1 % (0-6); HEMATOCRIT 30.9 % (35.0-45.0); HEMOGLOBIN 10.4 g/dl (12.0-16.0); LYMPHOCYTES # (AUTO) 0.6 X10'3 (1.1-4.8); LYMPHOCYTES % (AUTO) 17.5 % (21-51); MEAN CORPUSCULAR HGB CONC 33.7 g/dL (33.0-36.5); MEAN CORPUSCULAR VOLUME 83.2 FL (78-98); MEAN PLATELET VOLUME 6.6 FL (7.4-10.4); MONOCYTES # (AUTO) 0.2 X10'3 (0-0.9); MONOCYTES % (AUTO) 6.9 % (2-12); NEUTROPHILS # (AUTO) 2.4 X10'3 (1.8-7.7); NEUTROPHILS % (AUTO) 75.4 % (42-75); PLATELET COUNT 232 X10'3 (140-440); RED BLOOD COUNT 3.71 X10'6 (4.20-5.60); WHITE BLOOD COUNT 3.2 X10'3 (4.5-11.0)
[2021-02-14 00:57] LABS: ALANINE AMINOTRANSFERASE 15 U/L (12-78); ALBUMIN 2.3 G/DL (3.4-5.0); ALBUMIN/GLOBULIN RATIO 0.5 (1.1-1.5); ALKALINE PHOSPHATASE 463 IU/L (46-116); ANION GAP 6 (8-16); ASPARTATE AMINO TRANSFERASE 21 U/L (10-37); BILIRUBIN,TOTAL 0.3 MG/DL (0.1-1.0); BLOOD UREA NITROGEN 36 MG/DL (7-18); BUN/CREATININE RATIO 54.5 (6.6-38.0); CALCIUM 8.2 MG/DL (8.5-10.1); CHLORIDE 103 MMOL/L (99-107); CREATININE 0.66 MG/DL (0.40-0.90); GLUCOSE 89 MG/DL (70-104); POTASSIUM 4.1 MMOL/L (3.5-5.1); SODIUM 137 MMOL/L (135-145); TOTAL CARBON DIOXIDE 28.5 MMOL/L (24-32); TOTAL PROTEIN 6.7 G/DL (6.4-8.2); eGFR 88 ML/MIN
[2021-02-14 01:01] LABS: BILIRUBIN,DIRECT 0.1 MG/DL (0-0.3); LIPASE < 50 U/L (73-393); TROPONIN I < 0.04 NG/ML (0.0-0.05)
[2021-02-14] MEDS ORDERED: REMDESIVIR INJ 200 MG in normal saline 100ml IV soln 60 ML IV STA (01:08)
[2021-02-14] MEDS ORDERED: ASPI-1264 PO (02:16)
[2021-02-14] MEDS ORDERED: HYDR-4070 PO (02:19)
[2021-02-14] MEDS ORDERED: PRAM0.5T3 PO (02:21)
[2021-02-14] MEDS ORDERED: AMLO5TAB4 PO (02:22)
[2021-02-14] MEDS ORDERED: FAMO-128 PO (02:22)
[2021-02-14] MEDS ORDERED: HYDR-3965 PO (02:24)
[2021-02-14] MEDS ORDERED: dextrose ORAL solution 15 GM/59 ML bottle PO PRN (04:40)
[2021-02-14] MEDS ORDERED: magnesium hydroxide 30ml (MOM) UD suspension PO PRN (04:40)
[2021-02-14] MEDS ORDERED: acetaminophen 325mg tablet PO PRN ×2 (04:40)
[2021-02-14] MEDS ORDERED: glucagon, human recombinant 1mg kit SUBCUT PRN (04:40)
[2021-02-14] MEDS ORDERED: mag hydrox/Alum hydrox/simeth 30ml oral suspension PO PRN (04:40)
[2021-02-14] MEDS ORDERED: dextrose 50%-water 50ml dispensing syringe IV PRN ×2 (04:40)
[2021-02-14] MEDS ORDERED: MESSAGE TO PHARMACY PO ONE (04:40)
[2021-02-14] MEDS ORDERED: ondansetron/PF 4mg/2ml inj IV PRN (04:40)
[2021-02-14] MEDS ORDERED: HYDROcodone/acetaminophen 5mg/325mg tablet PO PRN (04:40)
[2021-02-14] MEDS ORDERED: morphine 2 MG/ML inj. syringe IV PRN (04:40)
--- NOTE | 2021-02-14 05:45 | NUR ---
Received report from Gail DOWNS from ED. Patient placed in bed and bed in locked & low position. Call light within reach.
[2021-02-14] MEDS: normal saline 1000ml 1,000 ML IV SCH ×2 (06:02→15:38)
[2021-02-14 06:09] VITALS: BP 141/87
--- NOTE | 2021-02-14 06:19 | NUR ---
Problems reprioritized. Patient report given, questions answered & plan of care reviewed with Claudine DOWNS.
--- NOTE | 2021-02-14 06:38 | NUR ---
Patient in room ORTHO 4014A. I have received report from YARELI Howe and had the opportunity to ask questions and assume patient care.
[2021-02-14] MEDS: docusate sod 100mg capsule PO SCH ×2 (08:00→22:00)
[2021-02-14 08:49] LABS: PHOSPHORUS 3.6 MG/DL (2.3-4.5)
[2021-02-14] MEDS ORDERED: ALBUTEROL INHALER 1 PUFF/90 MCG INHALER IH PRN (08:55)
--- NOTE | 2021-02-14 09:08 | NUR ---
DM Consult: Pt admitted w/ resp failure secondary to Covid per EMR. A1C currently pending though BG WNL this admit. Will continue to monitor and provide DM education if appropriate. Addendum: 02/14/21 at [address] Amended: Links added.
[2021-02-14 09:16] LABS: HEMOGLOBIN A1C 7.6 % (4.5-6.2)
[2021-02-14 10:00] VITALS: BP 155/78
[2021-02-14] MEDS: hydrALAZINE 25 MG tablet PO SCH ×3 (10:43→22:04)
[2021-02-14] MEDS: lisinopril 20mg tablet PO SCH (10:43)
[2021-02-14] MEDS: famotidine 20mg tablet PO SCH ×2 (10:44→22:05)
[2021-02-14] MEDS: aspirin 325mg tablet PO SCH (10:44)
[2021-02-14] MEDS: amLODIPine 5mg tablet PO SCH (10:44)
[2021-02-14] MEDS: enoxaparin 40mg/0.4ml syringe SUBCUT SCH (10:50)
[2021-02-14] MEDS: dexamethasone 4mg/ml inj IV SCH ×2 (10:50→22:06)
[2021-02-14] MEDS ORDERED: iohexol 350MG/ML 100ml bottle IV ONE (12:57)
--- NOTE | 2021-02-14 18:54 | NUR ---
Problems reprioritized. Patient report given, questions answered & plan of care reviewed with YARELI Baird.
[2021-02-14] MEDS: insulin glargine (Lantus) pen - multi-dose SQ SCH (21:54)
[2021-02-14 22:00] VITALS: BP 155/78
[2021-02-14] MEDS: pramipexole 0.25mg tablet PO SCH (22:00)
[2021-02-14] MEDS: REMDESIVIR 100 MG in NS 100ml IVPB IV SCH (22:04)
[2021-02-15 02:00] VITALS: BP 131/67
[2021-02-15] MEDS: hydrALAZINE 25 MG tablet PO SCH ×4 (02:41→20:28)
[2021-02-15] MEDS: HYDROcodone/acetaminophen 5mg/325mg tablet PO PRN ×2 (02:41→22:36)
[2021-02-15] MEDS: normal saline 1000ml 1,000 ML IV SCH ×3 (03:48→23:12)
--- NOTE | 2021-02-15 06:30 | NUR ---
Patient in room ORTHO 4014. I have received report from Oli DOWNS and had the opportunity to ask questions and assume patient care.
[2021-02-15] MEDS: dexamethasone 4mg/ml inj IV SCH ×2 (08:11→20:28)
[2021-02-15] MEDS: docusate sod 100mg capsule PO SCH ×2 (08:12→20:27)
[2021-02-15] MEDS: aspirin 325mg tablet PO SCH (08:13)
[2021-02-15] MEDS: famotidine 20mg tablet PO SCH ×2 (08:13→20:27)
[2021-02-15] MEDS: amLODIPine 5mg tablet PO SCH (08:16)
[2021-02-15] MEDS: enoxaparin 40mg/0.4ml syringe SUBCUT SCH (08:16)
[2021-02-15] MEDS: lisinopril 20mg tablet PO SCH (08:17)
[2021-02-15 08:19] LABS: BASOPHILS % (AUTO) 0.1 % (0-1); EOSINOPHILS % (AUTO) 0.1 % (0-6); HEMATOCRIT 35.7 % (35.0-45.0); HEMOGLOBIN 11.6 g/dl (12.0-16.0); LYMPHOCYTES # (AUTO) 0.5 X10'3 (1.1-4.8); LYMPHOCYTES % (AUTO) 19.1 % (21-51); MEAN CORPUSCULAR HEMOGLOBIN 27.5 PG (27.0-31.0); MEAN CORPUSCULAR HGB CONC 32.5 g/dL (33.0-36.5); MEAN CORPUSCULAR VOLUME 84.8 FL (78-98); MEAN PLATELET VOLUME 6.7 FL (7.4-10.4); MONOCYTES # (AUTO) 0.1 X10'3 (0-0.9); MONOCYTES % (AUTO) 5.8 % (2-12); NEUTROPHILS # (AUTO) 1.8 X10'3 (1.8-7.7); NEUTROPHILS % (AUTO) 74.9 % (42-75); PLATELET COUNT 272 X10'3 (140-440); RED BLOOD COUNT 4.21 X10'6 (4.20-5.60); RED CELL DISTRIBUTION WIDTH 14.4 % (11.5-14.5); WHITE BLOOD COUNT 2.5 X10'3 (4.5-11.0)
[2021-02-15] MEDS: insulin Lispro (HumaLOG) vial - multi-dose SQ SCH ×3 (08:35→22:55)
[2021-02-15 08:47] LABS: ALBUMIN 1.9 G/DL (3.4-5.0); ANION GAP 14 (8-16); BLOOD UREA NITROGEN 52 MG/DL (7-18); BUN/CREATININE RATIO 59.1 (6.6-38.0); C-REACTIVE PROTEIN 7.21 MG/DL (0.0-0.5); CALCIUM 7.6 MG/DL (8.5-10.1); CHLORIDE 104 MMOL/L (99-107); CREATININE 0.88 MG/DL (0.40-0.90); GLUCOSE 242 MG/DL (70-104); LACTATE DEHYDROGENASE 396 U/L (81-234); POTASSIUM 4.2 MMOL/L (3.5-5.1); SODIUM 140 MMOL/L (135-145); TOTAL CARBON DIOXIDE 21.7 MMOL/L (24-32); eGFR 63 ML/MIN
[2021-02-15 08:48] LABS: D-DIMER 1.34 MG/L FEU (0-0.50); PARTIAL THROMBOPLASTIN TIME 35 SECONDS (22-32)
[2021-02-15 09:50] LABS: PLATELET ESTIMATE NORMAL; TOTAL CELLS COUNTED 100
[2021-02-15 10:00] VITALS: BP 120/65
[2021-02-15 14:00] VITALS: BP 126/62
--- NOTE | 2021-02-15 14:00 | NUR ---
F/u 02/15: Pt A1C results 7.6 down from 10.7 January 07 prior admit this year. Noted pt received DM ed 01/07 admit and has been at [facility] since. No need for further DM ed at this time. Addendum: 02/15/21 at [address] Amended: Links added.
[2021-02-15 18:00] VITALS: BP 147/79
[2021-02-15] MEDS: pramipexole 0.25mg tablet PO SCH (20:18)
[2021-02-15] MEDS: REMDESIVIR 100 MG in NS 100ml IVPB IV SCH (20:29)
[2021-02-15] MEDS: insulin glargine (Lantus) pen - multi-dose SQ SCH (21:00)
[2021-02-16] MEDS: hydrALAZINE 25 MG tablet PO SCH ×4 (02:33→19:34)
[2021-02-16 06:00] VITALS: BP 146/69
--- NOTE | 2021-02-16 06:15 | NUR ---
received report from sharita fine
[2021-02-16] MEDS: aspirin 325mg tablet PO SCH (07:27)
[2021-02-16] MEDS: famotidine 20mg tablet PO SCH ×2 (07:27→19:34)
[2021-02-16] MEDS: lisinopril 20mg tablet PO SCH (07:29)
[2021-02-16] MEDS: amLODIPine 5mg tablet PO SCH (07:29)
[2021-02-16] MEDS: dexamethasone 4mg/ml inj IV SCH ×2 (07:34→19:37)
[2021-02-16] MEDS: HYDROcodone/acetaminophen 5mg/325mg tablet PO PRN ×2 (07:34→14:56)
[2021-02-16] MEDS: enoxaparin 40mg/0.4ml syringe SUBCUT SCH ×2 (07:38→19:35)
--- NOTE | 2021-02-16 07:40 | NUR ---
computer scanner works intermittly, checked all meds prior to admin
[2021-02-16] MEDS: docusate sod 100mg capsule PO SCH ×2 (07:41→19:34)
[2021-02-16 08:59] LABS: BASOPHILS % (AUTO) 0.3 % (0-1); EOSINOPHILS % (AUTO) 0.1 % (0-6); HEMATOCRIT 35.1 % (35.0-45.0); HEMOGLOBIN 11.7 g/dl (12.0-16.0); LYMPHOCYTES # (AUTO) 0.5 X10'3 (1.1-4.8); LYMPHOCYTES % (AUTO) 8.3 % (21-51); MEAN CORPUSCULAR HEMOGLOBIN 27.6 PG (27.0-31.0); MEAN CORPUSCULAR HGB CONC 33.3 g/dL (33.0-36.5); MEAN CORPUSCULAR VOLUME 82.9 FL (78-98); MEAN PLATELET VOLUME 6.5 FL (7.4-10.4); MONOCYTES # (AUTO) 0.6 X10'3 (0-0.9); NEUTROPHILS # (AUTO) 5.2 X10'3 (1.8-7.7); NEUTROPHILS % (AUTO) 81.3 % (42-75); PLATELET COUNT 403 X10'3 (140-440); RED BLOOD COUNT 4.23 X10'6 (4.20-5.60); RED CELL DISTRIBUTION WIDTH 14.3 % (11.5-14.5); WHITE BLOOD COUNT 6.4 X10'3 (4.5-11.0)
[2021-02-16 09:18] LABS: ALBUMIN 2.2 G/DL (3.4-5.0); ANION GAP 7 (8-16); BLOOD UREA NITROGEN 54 MG/DL (7-18); BUN/CREATININE RATIO 63.5 (6.6-38.0); C-REACTIVE PROTEIN 3.74 MG/DL (0.0-0.5); CALCIUM 7.8 MG/DL (8.5-10.1); CHLORIDE 106 MMOL/L (99-107); CREATININE 0.85 MG/DL (0.40-0.90); GLUCOSE 200 MG/DL (70-104); LACTATE DEHYDROGENASE 444 U/L (81-234); POTASSIUM 4.3 MMOL/L (3.5-5.1); SODIUM 138 MMOL/L (135-145); TOTAL CARBON DIOXIDE 25.2 MMOL/L (24-32); eGFR 66 ML/MIN
[2021-02-16 09:51] LABS: D-DIMER 1.74 MG/L FEU (0-0.50); PARTIAL THROMBOPLASTIN TIME 30 SECONDS (22-32)
[2021-02-16 10:00] VITALS: BP 151/69
[2021-02-16] MEDS: insulin Lispro (HumaLOG) vial - multi-dose SQ SCH ×3 (10:01→19:40)
[2021-02-16] MEDS: normal saline 1000ml 1,000 ML IV SCH ×3 (10:07→19:52)
[2021-02-16 14:00] VITALS: BP 128/50
[2021-02-16 18:00] VITALS: BP 123/64
--- NOTE | 2021-02-16 18:11 | NUR ---
throughout the day pt continues to take her nasal cannula out of her nose, which makes her 02 drop to the 70s, nursing staff continue to educate pt about the importance of maintaining her 02 levels, continue to educate and to monitor
--- NOTE | 2021-02-16 18:24 | NUR ---
gave report to sharita soto
--- NOTE | 2021-02-16 18:25 | NUR ---
Patient in room ORTHO 4014A. I have received report from YARELI Diaz and had the opportunity to ask questions and assume patient care.
[2021-02-16] MEDS: REMDESIVIR 100 MG in NS 100ml IVPB IV SCH (19:35)
[2021-02-16] MEDS: pramipexole 0.25mg tablet PO SCH (19:37)
[2021-02-16 22:00] VITALS: BP 130/77
[2021-02-16] MEDS: insulin glargine (Lantus) pen - multi-dose SQ SCH (22:03)
[2021-02-17] VITALS (7 sets, daily range): BP systolic 159–173; BP diastolic 77–90
[2021-02-17] MEDS: hydrALAZINE 25 MG tablet PO SCH ×4 (02:34→19:42)
--- NOTE | 2021-02-17 06:45 | NUR ---
Patient in room ORTHO 4014A. I have received report from YARELI LOZANO and had the opportunity to ask questions and assume patient care.
--- NOTE | 2021-02-17 06:53 | NUR ---
Problems reprioritized. Patient report given, questions answered & plan of care reviewed with YARELI Chow.
--- NOTE | 2021-02-17 07:15 | NUR ---
ACCUCHECK DONE, BS 57. PT ALERT AND TALKING. GLUCOSE GIVEN, RECHECK BS 99
[2021-02-17] MEDS: dextrose ORAL solution 15 GM/59 ML bottle PO PRN ×2 (07:28→12:36)
[2021-02-17] MEDS: dexamethasone 4mg/ml inj IV SCH ×2 (07:33→19:41)
[2021-02-17] MEDS: aspirin 325mg tablet PO SCH (07:34)
[2021-02-17] MEDS: famotidine 20mg tablet PO SCH ×2 (07:34→19:43)
[2021-02-17] MEDS: enoxaparin 40mg/0.4ml syringe SUBCUT SCH ×2 (07:35→19:40)
[2021-02-17] MEDS: amLODIPine 5mg tablet PO SCH (07:36)
[2021-02-17] MEDS: lisinopril 20mg tablet PO SCH (07:36)
[2021-02-17] MEDS: docusate sod 100mg capsule PO SCH ×2 (07:41→19:43)
[2021-02-17 07:56] LABS: BASOPHILS % (AUTO) 0.1 % (0-1); EOSINOPHILS % (AUTO) 0 % (0-6); HEMATOCRIT 33.4 % (35.0-45.0); HEMOGLOBIN 10.9 g/dl (12.0-16.0); LYMPHOCYTES # (AUTO) 0.6 X10'3 (1.1-4.8); LYMPHOCYTES % (AUTO) 9.5 % (21-51); MEAN CORPUSCULAR HEMOGLOBIN 27.5 PG (27.0-31.0); MEAN CORPUSCULAR HGB CONC 32.7 g/dL (33.0-36.5); MEAN PLATELET VOLUME 6.4 FL (7.4-10.4); MONOCYTES # (AUTO) 0.4 X10'3 (0-0.9); MONOCYTES % (AUTO) 6.6 % (2-12); NEUTROPHILS # (AUTO) 5.3 X10'3 (1.8-7.7); NEUTROPHILS % (AUTO) 83.8 % (42-75); PLATELET COUNT 366 X10'3 (140-440); RED BLOOD COUNT 3.98 X10'6 (4.20-5.60); RED CELL DISTRIBUTION WIDTH 14.3 % (11.5-14.5); WHITE BLOOD COUNT 6.3 X10'3 (4.5-11.0)
[2021-02-17 08:32] LABS: ALBUMIN 2.4 G/DL (3.4-5.0); ANION GAP 6 (8-16); BLOOD UREA NITROGEN 48 MG/DL (7-18); BUN/CREATININE RATIO 70.6 (6.6-38.0); C-REACTIVE PROTEIN 2.33 MG/DL (0.0-0.5); CALCIUM 8.2 MG/DL (8.5-10.1); CHLORIDE 108 MMOL/L (99-107); CREATININE 0.68 MG/DL (0.40-0.90); GLUCOSE 63 MG/DL (70-104); LACTATE DEHYDROGENASE 429 U/L (81-234); POTASSIUM 3.8 MMOL/L (3.5-5.1); SODIUM 137 MMOL/L (135-145); TOTAL CARBON DIOXIDE 22.9 MMOL/L (24-32); eGFR 85 ML/MIN
[2021-02-17 08:54] LABS: D-DIMER 1.49 MG/L FEU (0-0.50); PARTIAL THROMBOPLASTIN TIME 31 SECONDS (22-32)
[2021-02-17] MEDS: insulin Lispro (HumaLOG) vial - multi-dose SQ SCH (09:41)
[2021-02-17] MEDS: normal saline 1000ml 1,000 ML IV SCH ×2 (12:43→22:40)
--- NOTE | 2021-02-17 18:46 | NUR ---
Problems reprioritized. Patient report given, questions answered & plan of care reviewed with YARELI ESPINOSA.
[2021-02-17] MEDS: REMDESIVIR 100 MG in NS 100ml IVPB IV SCH (19:43)
[2021-02-17] MEDS: insulin glargine (Lantus) pen - multi-dose SQ SCH (21:00)
--- NOTE | 2021-02-17 22:00 | NUR ---
also wearing 15liters nrb mask Addendum: 02/18/21 at 0157 by Cayla Coburn RN Amended: Links added.
--- NOTE | 2021-02-17 22:33 | NUR ---
Pt blood sugars were low all day last one taken at [address] Ferrari at 2230 and was advised to hold Lantus for the night.
[2021-02-17] MEDS: pramipexole 0.25mg tablet PO SCH (22:39)
--- NOTE | 2021-02-17 23:30 | NUR ---
Pt's oxygen levels keep on being around 80-83% on 15liters HF and 15 liters NRB mask and pt appears to be in distress. Called Dr. Ferrari and he gave order for abg at this time.
[2021-02-18] VITALS (22 sets, daily range): BP systolic 125–180; BP diastolic 61–127
[2021-02-18 00:01] LABS: ABG BASE EXCESS -5.1 mmol/L (-2.0-2.0); ABG HCO3 21.2 mmol/L (22.0-26.0); ABG OXYGEN SATURATION 81.8 % (94-97); ABG PCO2 (T) 43.4 mmHg (32.0-45.0); ABG PO2 (T) 50.8 mmHg (75.0-100.0); ALLEN'S TEST POSITIVE; FCOHb 0.2 % (0.0-3.9); FLOW 30 L/min; FMetHb 0.3 % (0.0-1.5); FO2Hb 81.4 % (94-97); PATIENT TEMPERATURE 36.8; TOTAL HEMOGLOBIN 12.4 G/dl (12.0-16.0)
[2021-02-18] MEDS: morphine 2 MG/ML inj. syringe IV PRN ×3 (00:16→21:02)
--- NOTE | 2021-02-18 00:56 | NUR ---
Dr. Ferrari came by and re evaluated patient and asked for another abg to be done at 0200. Put order in for abg and will page RT to notify them of new order.
[2021-02-18] MEDS: hydrALAZINE 25 MG tablet PO SCH ×5 (01:35→20:10)
[2021-02-18 02:23] LABS: ABG OXYGEN SATURATION 83.6 % (94-97); ABG PCO2 (T) 48.2 mmHg (32.0-45.0); ABG PO2 (T) 52.9 mmHg (75.0-100.0); ALLEN'S TEST POSITIVE; FCOHb 0.3 % (0.0-3.9); FMetHb 0.3 % (0.0-1.5); FO2Hb 83.1 % (94-97); PATIENT TEMPERATURE 36.8; TOTAL HEMOGLOBIN 12.4 G/dl (12.0-16.0)
--- NOTE | 2021-02-18 02:51 | NUR ---
Received report from Ortho.
--- NOTE | 2021-02-18 03:10 | NUR ---
Admission Pt arrived on unit
[2021-02-18] MEDS: dexmedetomidine/D5W 100mL 100 ML IV PRN ×5 (03:12→23:05)
[2021-02-18 06:04] LABS: BASOPHILS % (AUTO) 0.1 % (0-1); EOSINOPHILS % (AUTO) 0 % (0-6); HEMATOCRIT 29.6 % (35.0-45.0); HEMOGLOBIN 9.8 g/dl (12.0-16.0); LYMPHOCYTES # (AUTO) 0.4 X10'3 (1.1-4.8); LYMPHOCYTES % (AUTO) 6.5 % (21-51); MEAN CORPUSCULAR HEMOGLOBIN 27.6 PG (27.0-31.0); MEAN CORPUSCULAR VOLUME 83.5 FL (78-98); MEAN PLATELET VOLUME 6.3 FL (7.4-10.4); MONOCYTES # (AUTO) 0.2 X10'3 (0-0.9); MONOCYTES % (AUTO) 3.9 % (2-12); NEUTROPHILS # (AUTO) 5.3 X10'3 (1.8-7.7); NEUTROPHILS % (AUTO) 89.5 % (42-75); PLATELET COUNT 277 X10'3 (140-440); RED BLOOD COUNT 3.55 X10'6 (4.20-5.60); RED CELL DISTRIBUTION WIDTH 14.4 % (11.5-14.5); WHITE BLOOD COUNT 5.9 X10'3 (4.5-11.0)
[2021-02-18 06:16] LABS: ANION GAP 8 (8-16); BLOOD UREA NITROGEN 41 MG/DL (7-18); BUN/CREATININE RATIO 63.1 (6.6-38.0); C-REACTIVE PROTEIN 1.78 MG/DL (0.0-0.5); CALCIUM 7.7 MG/DL (8.5-10.1); CHLORIDE 110 MMOL/L (99-107); CREATININE 0.65 MG/DL (0.40-0.90); D-DIMER 1.33 MG/L FEU (0-0.50); GLUCOSE 160 MG/DL (70-104); LACTATE DEHYDROGENASE 390 U/L (81-234); PARTIAL THROMBOPLASTIN TIME 33 SECONDS (22-32); POTASSIUM 4.1 MMOL/L (3.5-5.1); SODIUM 142 MMOL/L (135-145); TOTAL CARBON DIOXIDE 23.6 MMOL/L (24-32); eGFR 90 ML/MIN
[2021-02-18] MEDS: famotidine 20mg tablet PO SCH ×3 (08:22→20:09)
[2021-02-18] MEDS: docusate sod 100mg capsule PO SCH ×3 (08:22→20:10)
[2021-02-18] MEDS: aspirin 325mg tablet PO SCH (08:22)
[2021-02-18] MEDS: amLODIPine 5mg tablet PO SCH (08:23)
[2021-02-18] MEDS: enoxaparin 40mg/0.4ml syringe SUBCUT SCH ×2 (08:23→20:09)
[2021-02-18] MEDS: lisinopril 20mg tablet PO SCH (08:23)
[2021-02-18] MEDS: dexamethasone 4mg/ml inj IV SCH ×2 (08:25→20:09)
[2021-02-18] MEDS ORDERED: TOCILIZUMAB IV ONE (09:20)
[2021-02-18] MEDS ORDERED: NORMAL SALINE IV ONE (09:20)
[2021-02-18] MEDS ORDERED: furosemide 40mg/4ml inj IV ONE (09:30)
--- NOTE | 2021-02-18 16:56 | NUR ---
- Pt eating less than 25% of meals, refusing others ; does not like food selection or fluids offered. Previous insulin SS was d/c'd due to hypoglycemia. AC/HS Accu-checks continued. - Activity intolerance noted on BiPAP at 100%. Attempted to prone patient, was only able to tolerate Side Lying positions, O2 sats improved. - Eller placed for accurate I &O 's , Lasix administered, pt responding well. - Precedex cont. due to agitation and restlessness, attempts to remove equipment despite frequent redirection. Sitter at bedside. - Pt to resume Sliding Scale due to 2 previous Accu-check results.
[2021-02-18] MEDS: insulin Lispro (HumaLOG) vial - multi-dose SQ SCH ×2 (17:27→20:47)
[2021-02-18] MEDS ORDERED: lactose-reduced food (Ensure Enlive) - 237ml bottle PO SCH (18:00)
--- NOTE | 2021-02-18 18:15 | NUR ---
Patient in room CICU 2016. I have received report from Dalila DOWNS and had the opportunity to ask questions and assume patient care.
[2021-02-18] MEDS: pramipexole 0.25mg tablet PO SCH ×2 (20:10→20:31)
[2021-02-18] MEDS: insulin glargine (Lantus) pen - multi-dose SQ SCH (20:45)
--- NOTE | 2021-02-18 21:15 | NUR ---
Patient refused evening PO meds & fluids, pt stated "I can't swallow". Pt got agitated at times.
[2021-02-19] VITALS (24 sets, daily range): BP systolic 132–191; BP diastolic 62–95
[2021-02-19] MEDS: hydrALAZINE 25 MG tablet PO SCH ×3 (00:42→13:39)
--- NOTE | 2021-02-19 01:22 | NUR ---
Called to Dr. Lara that patient refused all her PO meds. aware.
--- NOTE | 2021-02-19 06:10 | NUR ---
Problems reprioritized. Patient report given, questions answered & plan of care reviewed with Dalila DOWNS.
[2021-02-19 06:26] LABS: D-DIMER 1.98 MG/L FEU (0-0.50); PARTIAL THROMBOPLASTIN TIME 30 SECONDS (22-32)
[2021-02-19 06:38] LABS: ALBUMIN 1.9 G/DL (3.4-5.0); ANION GAP 10 (8-16); BLOOD UREA NITROGEN 41 MG/DL (7-18); BUN/CREATININE RATIO 66.1 (6.6-38.0); CALCIUM 8.4 MG/DL (8.5-10.1); CHLORIDE 110 MMOL/L (99-107); CREATININE 0.62 MG/DL (0.40-0.90); GLUCOSE 146 MG/DL (70-104); POTASSIUM 4.1 MMOL/L (3.5-5.1); SODIUM 143 MMOL/L (135-145); TOTAL CARBON DIOXIDE 22.6 MMOL/L (24-32); eGFR > 90 ML/MIN
[2021-02-19 06:40] LABS: C-REACTIVE PROTEIN 4.54 MG/DL (0.0-0.5); LACTATE DEHYDROGENASE 383 U/L (81-234)
--- NOTE | 2021-02-19 07:04 | NUR ---
Pt anxious but cooperative with redirection; one restraint released for repositioning to Side-Lying position. Fluids offered, pt now complains that swallowing is too difficult. Head-to-toe assessment complete, VS stable, call light within reach. Addendum: 02/19/21 at 0818 by Dalila Delatorre RN NG placed, placement confirmed 814
[2021-02-19 07:33] LABS: BASOPHILS % (AUTO) 0 % (0-1); EOSINOPHILS % (AUTO) 0.1 % (0-6); HEMATOCRIT 36.8 % (35.0-45.0); LYMPHOCYTES # (AUTO) 0.5 X10'3 (1.1-4.8); LYMPHOCYTES % (AUTO) 6.1 % (21-51); MEAN CORPUSCULAR HEMOGLOBIN 27.7 PG (27.0-31.0); MEAN CORPUSCULAR HGB CONC 32.6 g/dL (33.0-36.5); MEAN CORPUSCULAR VOLUME 85.1 FL (78-98); MEAN PLATELET VOLUME 6.4 FL (7.4-10.4); MONOCYTES # (AUTO) 0.3 X10'3 (0-0.9); MONOCYTES % (AUTO) 3.7 % (2-12); NEUTROPHILS # (AUTO) 6.9 X10'3 (1.8-7.7); NEUTROPHILS % (AUTO) 90.1 % (42-75); PLATELET COUNT 298 X10'3 (140-440); RED BLOOD COUNT 4.33 X10'6 (4.20-5.60); WHITE BLOOD COUNT 7.7 X10'3 (4.5-11.0)
[2021-02-19] MEDS: dexmedetomidine/D5W 100mL 100 ML IV PRN ×2 (08:57→19:15)
[2021-02-19] MEDS: lisinopril 20mg tablet PO SCH (08:58)
[2021-02-19] MEDS: famotidine 20mg tablet PO SCH (08:59)
[2021-02-19] MEDS: enoxaparin 40mg/0.4ml syringe SUBCUT SCH ×2 (08:59→21:16)
[2021-02-19] MEDS: amLODIPine 5mg tablet PO SCH (08:59)
[2021-02-19] MEDS: aspirin 325mg tablet PO SCH (08:59)
[2021-02-19] MEDS: docusate sod 100mg capsule PO SCH (08:59)
[2021-02-19] MEDS: dexamethasone 4mg/ml inj IV SCH ×2 (09:00→21:12)
[2021-02-19] MEDS: morphine 2 MG/ML inj. syringe IV PRN ×3 (09:01→21:09)
[2021-02-19 11:00] LABS: BASOPHILS % (AUTO) 0.1 % (0-1); EOSINOPHILS % (AUTO) 0.1 % (0-6); HEMATOCRIT 35.7 % (35.0-45.0); HEMOGLOBIN 11.9 g/dl (12.0-16.0); LYMPHOCYTES # (AUTO) 0.4 X10'3 (1.1-4.8); LYMPHOCYTES % (AUTO) 5.8 % (21-51); MEAN CORPUSCULAR HEMOGLOBIN 27.6 PG (27.0-31.0); MEAN CORPUSCULAR HGB CONC 33.4 g/dL (33.0-36.5); MEAN CORPUSCULAR VOLUME 82.9 FL (78-98); MEAN PLATELET VOLUME 6.4 FL (7.4-10.4); MONOCYTES # (AUTO) 0.3 X10'3 (0-0.9); MONOCYTES % (AUTO) 3.9 % (2-12); NEUTROPHILS # (AUTO) 6.6 X10'3 (1.8-7.7); NEUTROPHILS % (AUTO) 90.1 % (42-75); PLATELET COUNT 295 X10'3 (140-440); RED BLOOD COUNT 4.31 X10'6 (4.20-5.60); RED CELL DISTRIBUTION WIDTH 14.5 % (11.5-14.5); WHITE BLOOD COUNT 7.3 X10'3 (4.5-11.0)
[2021-02-19 11:12] LABS: PARTIAL THROMBOPLASTIN TIME 31 SECONDS (22-32)
[2021-02-19 11:13] LABS: ALBUMIN 1.9 G/DL (3.4-5.0); ANION GAP 10 (8-16); BLOOD UREA NITROGEN 40 MG/DL (7-18); BUN/CREATININE RATIO 61.5 (6.6-38.0); CALCIUM 7.9 MG/DL (8.5-10.1); CHLORIDE 110 MMOL/L (99-107); CREATININE 0.65 MG/DL (0.40-0.90); GLUCOSE 134 MG/DL (70-104); PHOSPHORUS 2.8 MG/DL (2.3-4.5); SODIUM 144 MMOL/L (135-145); TOTAL CARBON DIOXIDE 23.9 MMOL/L (24-32); eGFR 90 ML/MIN
--- NOTE | 2021-02-19 12:04 | NUR ---
TF consult: Pt admit for acute hypoxemic respiratory failure secondary to COVID pneumonia. Initially on an MM5 heart healthy CHO controlled diet and eating poorly with mostly 0-25% PO intake throughout LOS. Per field application engineer this morning pt complains that swallowing is too difficult and an NG tube was placed with placement confirmed. Recommend NPO with TF and BSS with ST prior to PO diet advancement, see TF recommendations below. LBM 02/16, receiving routine bowel care with additional PRN bowel care available. Will continue to follow closely. Recommendations: 1) Continuous Vital AF via NGT with 80 mL/hr goal to provide 1920 mL total volume/day, 2304 kcal, 144 g protein, and 1557 mL water 2) Additional 125 mL water flush Q4H; monitor serum Na 3) Prealbumin q Monday/ 4) Daily scaled weights 5) Routine bowel care 6) BSS with ST prior to PO diet advancement; recommend regular diet in view of poor PO intake hx, CHO controlled diet if pt with good PO intake and BG levels are elevated Addendum: 02/19/21 at [address] Amended: Links added.
[2021-02-19] MEDS ORDERED: acetaminophen 325mg tablet NG PRN ×2 (14:17)
[2021-02-19] MEDS ORDERED: dextrose ORAL solution 15 GM/59 ML bottle NG PRN ×2 (14:18)
[2021-02-19] MEDS ORDERED: magnesium hydroxide 30ml (MOM) UD suspension NG PRN (14:19)
[2021-02-19] MEDS ORDERED: mag hydrox/Alum hydrox/simeth 30ml oral suspension NG PRN (14:19)
--- NOTE | 2021-02-19 18:10 | NUR ---
Patient in room CICU 2016. I have received report from Dalila DOWNS and had the opportunity to ask questions and assume patient care.
[2021-02-19] MEDS: docusate sodium 100mg/10ml UD cup NG SCH (20:00)
[2021-02-19] MEDS: hydrALAZINE 25 MG tablet NG SCH (21:15)
[2021-02-19] MEDS: famotidine 20mg tablet NG SCH (21:15)
[2021-02-19] MEDS: pramipexole 0.25mg tablet NG SCH (21:16)
[2021-02-19] MEDS: insulin glargine (Lantus) pen - multi-dose SQ SCH (21:34)
[2021-02-19] MEDS: insulin regular, human U-100 3ml vial - multi-dose SQ SCH (21:35)
[2021-02-20] VITALS (25 sets, daily range): BP systolic 118–160; BP diastolic 58–84
[2021-02-20] MEDS: morphine 2 MG/ML inj. syringe IV PRN ×5 (01:19→19:02)
[2021-02-20] MEDS: hydrALAZINE 25 MG tablet NG SCH ×4 (01:19→20:01)
[2021-02-20] MEDS: insulin regular, human U-100 3ml vial - multi-dose SQ SCH ×4 (01:43→20:15)
[2021-02-20] MEDS: dexmedetomidine/D5W 100mL 100 ML IV PRN (02:49)
--- NOTE | 2021-02-20 06:07 | NUR ---
Problems reprioritized. Patient report given, questions answered & plan of care reviewed with Dalila DOWNS.
[2021-02-20 06:48] LABS: BASOPHILS % (AUTO) 0.1 % (0-1); EOSINOPHILS % (AUTO) 0.1 % (0-6); HEMATOCRIT 34.2 % (35.0-45.0); HEMOGLOBIN 11.3 g/dl (12.0-16.0); LYMPHOCYTES # (AUTO) 0.5 X10'3 (1.1-4.8); LYMPHOCYTES % (AUTO) 6.1 % (21-51); MEAN CORPUSCULAR HEMOGLOBIN 27.3 PG (27.0-31.0); MEAN CORPUSCULAR VOLUME 82.6 FL (78-98); MEAN PLATELET VOLUME 6.7 FL (7.4-10.4); MONOCYTES # (AUTO) 0.3 X10'3 (0-0.9); NEUTROPHILS # (AUTO) 7.3 X10'3 (1.8-7.7); NEUTROPHILS % (AUTO) 89.7 % (42-75); PLATELET COUNT 305 X10'3 (140-440); RED BLOOD COUNT 4.15 X10'6 (4.20-5.60); RED CELL DISTRIBUTION WIDTH 14.4 % (11.5-14.5); WHITE BLOOD COUNT 8.2 X10'3 (4.5-11.0)
[2021-02-20 06:58] LABS: D-DIMER 1.88 MG/L FEU (0-0.50); PARTIAL THROMBOPLASTIN TIME 30 SECONDS (22-32)
[2021-02-20 07:04] LABS: ALBUMIN 1.8 G/DL (3.4-5.0); ANION GAP 9 (8-16); BLOOD UREA NITROGEN 39 MG/DL (7-18); BUN/CREATININE RATIO 59.1 (6.6-38.0); C-REACTIVE PROTEIN 4.98 MG/DL (0.0-0.5); CHLORIDE 109 MMOL/L (99-107); CREATININE 0.66 MG/DL (0.40-0.90); GLUCOSE 158 MG/DL (70-104); LACTATE DEHYDROGENASE 473 U/L (81-234); MAGNESIUM 2.1 MG/DL (1.5-2.4); PHOSPHORUS 2.7 MG/DL (2.3-4.5); POTASSIUM 3.9 MMOL/L (3.5-5.1); SODIUM 143 MMOL/L (135-145); TOTAL CARBON DIOXIDE 25.5 MMOL/L (24-32); eGFR 88 ML/MIN
[2021-02-20] MEDS: lisinopril 20mg tablet NG SCH (08:00)
[2021-02-20] MEDS: docusate sodium 100mg/10ml UD cup NG SCH ×2 (08:57→20:00)
[2021-02-20] MEDS: amLODIPine 5mg tablet NG SCH (08:57)
[2021-02-20] MEDS: famotidine 20mg tablet NG SCH ×2 (08:57→20:00)
[2021-02-20] MEDS: dexamethasone 4mg/ml inj IV SCH ×2 (08:58→20:00)
[2021-02-20] MEDS: aspirin 325mg tablet NG SCH (08:58)
[2021-02-20] MEDS: enoxaparin 40mg/0.4ml syringe SUBCUT SCH ×2 (08:58→20:00)
--- NOTE | 2021-02-20 18:15 | NUR ---
Patient in room CICU 2016. I have received report from Dalila DOWNS and had the opportunity to ask questions and assume patient care.
[2021-02-20] MEDS: pramipexole 0.25mg tablet NG SCH (20:01)
[2021-02-20] MEDS: insulin glargine (Lantus) pen - multi-dose SQ SCH (20:13)
[2021-02-21] VITALS (24 sets, daily range): BP systolic 132–181; BP diastolic 45–85
[2021-02-21] MEDS: morphine 2 MG/ML inj. syringe IV PRN ×4 (00:20→19:37)
[2021-02-21] MEDS: dexmedetomidine/D5W 100mL 100 ML IV PRN ×5 (00:35→22:29)
[2021-02-21] MEDS: hydrALAZINE 25 MG tablet NG SCH ×4 (01:34→19:38)
[2021-02-21] MEDS: insulin regular, human U-100 3ml vial - multi-dose SQ SCH (01:39)
--- NOTE | 2021-02-21 06:24 | NUR ---
Problems reprioritized. Patient report given, questions answered & plan of care reviewed with Dionna DOWNS.
--- NOTE | 2021-02-21 06:32 | NUR ---
Patient in room CICU 2016. I have received report from Yoli DOWNS and had the opportunity to ask questions and assume patient care.
[2021-02-21 07:19] LABS: D-DIMER 1.91 MG/L FEU (0-0.50); PARTIAL THROMBOPLASTIN TIME 29 SECONDS (22-32)
[2021-02-21 07:20] LABS: BASOPHILS % (AUTO) 0.1 % (0-1); EOSINOPHILS % (AUTO) 0.1 % (0-6); HEMOGLOBIN 10.5 g/dl (12.0-16.0); LYMPHOCYTES # (AUTO) 0.5 X10'3 (1.1-4.8); LYMPHOCYTES % (AUTO) 5.3 % (21-51); MEAN CORPUSCULAR HEMOGLOBIN 27.8 PG (27.0-31.0); MEAN CORPUSCULAR HGB CONC 33.9 g/dL (33.0-36.5); MEAN CORPUSCULAR VOLUME 81.9 FL (78-98); MEAN PLATELET VOLUME 7.1 FL (7.4-10.4); MONOCYTES # (AUTO) 0.3 X10'3 (0-0.9); MONOCYTES % (AUTO) 3.4 % (2-12); NEUTROPHILS # (AUTO) 9.1 X10'3 (1.8-7.7); NEUTROPHILS % (AUTO) 91.1 % (42-75); PLATELET COUNT 287 X10'3 (140-440); RED BLOOD COUNT 3.78 X10'6 (4.20-5.60); RED CELL DISTRIBUTION WIDTH 14.7 % (11.5-14.5)
[2021-02-21 07:23] LABS: ALANINE AMINOTRANSFERASE 15 U/L (12-78); ALBUMIN 1.8 G/DL (3.4-5.0); ALBUMIN/GLOBULIN RATIO 0.5 (1.1-1.5); ALKALINE PHOSPHATASE 249 IU/L (46-116); ANION GAP 9 (8-16); ASPARTATE AMINO TRANSFERASE 15 U/L (10-37); BILIRUBIN,TOTAL 0.3 MG/DL (0.1-1.0); BLOOD UREA NITROGEN 44 MG/DL (7-18); BUN/CREATININE RATIO 66.7 (6.6-38.0); C-REACTIVE PROTEIN 3.07 MG/DL (0.0-0.5); CALCIUM 7.9 MG/DL (8.5-10.1); CHLORIDE 108 MMOL/L (99-107); CREATININE 0.66 MG/DL (0.40-0.90); GLUCOSE 126 MG/DL (70-104); LACTATE DEHYDROGENASE 358 U/L (81-234); MAGNESIUM 1.9 MG/DL (1.5-2.4); PHOSPHORUS 2.6 MG/DL (2.3-4.5); SODIUM 143 MMOL/L (135-145); TOTAL CARBON DIOXIDE 25.9 MMOL/L (24-32); TOTAL PROTEIN 5.7 G/DL (6.4-8.2); eGFR 88 ML/MIN
[2021-02-21] MEDS: amLODIPine 5mg tablet NG SCH ×2 (08:00→19:37)
[2021-02-21] MEDS: docusate sodium 100mg/10ml UD cup NG SCH ×2 (08:00→19:37)
[2021-02-21] MEDS: famotidine 20mg tablet NG SCH ×2 (08:00→19:38)
[2021-02-21] MEDS: aspirin 325mg tablet NG SCH (08:00)
[2021-02-21] MEDS: lisinopril 20mg tablet NG SCH (08:00)
[2021-02-21] MEDS: dexamethasone 4mg/ml inj IV SCH ×2 (08:19→19:38)
[2021-02-21] MEDS: enoxaparin 40mg/0.4ml syringe SUBCUT SCH ×2 (08:19→19:38)
--- NOTE | 2021-02-21 11:00 | NUR ---
Informed Dr. Tiwari that pt pulled out NG tube and didnt receive morning meds, and that pt is tolerating being on salter NC at 14L. MD ordered swallow eval, chest xray, and ABG.
[2021-02-21] MEDS: insulin Lispro (HumaLOG) vial - multi-dose SQ SCH (14:50)
[2021-02-21 15:35] LABS: ABG BASE EXCESS 1.9 mmol/L (-2.0-2.0); ABG HCO3 25.9 mmol/L (22.0-26.0); ABG OXYGEN SATURATION 94.3 % (94-97); ABG PCO2 (T) 36.8 mmHg (32.0-45.0); ALLEN'S TEST POSITIVE; FCOHb 0.3 % (0.0-3.9); FLOW 14 L/min; PATIENT TEMPERATURE 35.9; TOTAL HEMOGLOBIN 11.7 G/dl (12.0-16.0)
--- NOTE | 2021-02-21 18:24 | NUR ---
Problems reprioritized. Patient report given, questions answered & plan of care reviewed with Ramila DOWNS.
[2021-02-21] MEDS: pramipexole 0.25mg tablet NG SCH (19:38)
[2021-02-21] MEDS: insulin glargine (Lantus) pen - multi-dose SQ SCH ×2 (20:23→20:24)
[2021-02-22] VITALS (22 sets, daily range): BP systolic 122–180; BP diastolic 61–85
[2021-02-22] MEDS: dexmedetomidine/D5W 100mL 100 ML IV PRN ×5 (01:21→20:17)
[2021-02-22] MEDS: hydrALAZINE 25 MG tablet NG SCH ×4 (01:22→20:13)
--- NOTE | 2021-02-22 05:00 | NUR ---
bedbath given and Eller care provided
--- NOTE | 2021-02-22 06:24 | NUR ---
report given to Garland Irwin/Maxi
[2021-02-22 07:10] LABS: D-DIMER 1.49 MG/L FEU (0-0.50); PARTIAL THROMBOPLASTIN TIME 28 SECONDS (22-32)
[2021-02-22 07:46] LABS: C-REACTIVE PROTEIN 2.37 MG/DL (0.0-0.5); PREALBUMIN 15.8 MG/DL (19-36)
[2021-02-22] MEDS: docusate sodium 100mg/10ml UD cup NG SCH ×2 (08:25→20:14)
[2021-02-22] MEDS: lisinopril 20mg tablet NG SCH (08:26)
[2021-02-22] MEDS: aspirin 325mg tablet NG SCH (08:26)
[2021-02-22] MEDS: famotidine 20mg tablet NG SCH ×2 (08:26→20:12)
[2021-02-22] MEDS: amLODIPine 5mg tablet NG SCH ×2 (08:26→20:13)
[2021-02-22] MEDS: enoxaparin 40mg/0.4ml syringe SUBCUT SCH ×2 (08:27→20:14)
[2021-02-22] MEDS: dexamethasone 4mg/ml inj IV SCH ×2 (08:27→20:14)
[2021-02-22] MEDS: HYDROcodone/acetaminophen 5mg/325mg tablet PO PRN ×2 (08:28→22:37)
[2021-02-22 11:02] LABS: BASOPHILS % (AUTO) 0.1 % (0-1); EOSINOPHILS # (AUTO) 0.1 X10'3 (0-0.9); EOSINOPHILS % (AUTO) 0.7 % (0-6); HEMATOCRIT 33.9 % (35.0-45.0); LYMPHOCYTES # (AUTO) 0.5 X10'3 (1.1-4.8); LYMPHOCYTES % (AUTO) 4.1 % (21-51); MEAN CORPUSCULAR HEMOGLOBIN 27.1 PG (27.0-31.0); MEAN CORPUSCULAR HGB CONC 32.5 g/dL (33.0-36.5); MEAN CORPUSCULAR VOLUME 83.4 FL (78-98); MEAN PLATELET VOLUME 7.5 FL (7.4-10.4); MONOCYTES # (AUTO) 0.5 X10'3 (0-0.9); MONOCYTES % (AUTO) 3.9 % (2-12); NEUTROPHILS # (AUTO) 12.1 X10'3 (1.8-7.7); NEUTROPHILS % (AUTO) 91.2 % (42-75); PLATELET COUNT 278 X10'3 (140-440); RED BLOOD COUNT 4.06 X10'6 (4.20-5.60); RED CELL DISTRIBUTION WIDTH 15.3 % (11.5-14.5); WHITE BLOOD COUNT 13.3 X10'3 (4.5-11.0)
[2021-02-22 11:29] LABS: ALBUMIN 1.8 G/DL (3.4-5.0); ALBUMIN/GLOBULIN RATIO 0.4 (1.1-1.5); ALKALINE PHOSPHATASE 234 IU/L (46-116); ANION GAP 8 (8-16); ASPARTATE AMINO TRANSFERASE 11 U/L (10-37); BILIRUBIN,TOTAL 0.3 MG/DL (0.1-1.0); BLOOD UREA NITROGEN 35 MG/DL (7-18); BUN/CREATININE RATIO 64.8 (6.6-38.0); CALCIUM 8.3 MG/DL (8.5-10.1); CHLORIDE 106 MMOL/L (99-107); CREATININE 0.54 MG/DL (0.40-0.90); GLUCOSE 250 MG/DL (70-104); PHOSPHORUS 2.5 MG/DL (2.3-4.5); POTASSIUM 4.1 MMOL/L (3.5-5.1); SODIUM 140 MMOL/L (135-145); TOTAL CARBON DIOXIDE 25.9 MMOL/L (24-32); eGFR > 90 ML/MIN
[2021-02-22 11:43] LABS: ALANINE AMINOTRANSFERASE < 6 U/L (12-78)
[2021-02-22] MEDS ORDERED: furosemide 40mg/4ml inj IV ONE (12:00)
--- NOTE | 2021-02-22 12:04 | NUR ---
Reassessment: Pt advanced to full liquids this AM per LAUNDERER HAND recs w/ NG removed per EMR. PO 50% first clear liquid diet meal last night prior to LAUNDERER HAND BSS this AM; no longer meeting nutrient needs for catabolic state. Prior to NG feeds PO 0-25% for 7 days. IF PO remains poor NG to be replaced to meet nutrition needs per machine operator packaging at rounds. LBM 02/20 receiving routine colace. Will continue to monitor. Recommendations: 1) Continue full liquids diet per LAUNDERER HAND/MD; advance to regular in view of prior poor PO hx. Encourage PO; IF PO intake adequate consider carb controlled restriction 2) IF pt PO meal intake remains inadequate, NG feeds using Vital AF at 80 mL/hr goal to provide 1920 mL total volume/day, 2304 kcal, 144 g protein, and 1557 mL water 3) IF TF; Additional 125 mL water flush Q4H; monitor serum Na 4) IF TF; Prealbumin q Monday/; Daily scaled weights 5) Routine bowel care Addendum: 02/22/21 at [address] Amended: Links added.
[2021-02-22] MEDS: insulin Lispro (HumaLOG) vial - multi-dose SQ SCH ×2 (13:48→21:57)
--- NOTE | 2021-02-22 18:00 | NUR ---
Bilateral Submandibular lymph nodes tender hard and swollen,right side more swollen than left side, consulted with Dr brady and he said as long it does not obstruct the airway, no intervention needed at this time
[2021-02-22] MEDS: morphine 2 MG/ML inj. syringe IV PRN (20:10)
[2021-02-22] MEDS: pramipexole 0.25mg tablet NG SCH (20:13)
[2021-02-22] MEDS: furosemide 40mg/4ml inj IV SCH (20:14)
[2021-02-22] MEDS: insulin glargine (Lantus) pen - multi-dose SQ SCH (21:53)
[2021-02-23] VITALS (17 sets, daily range): BP systolic 116–173; BP diastolic 53–80
[2021-02-23] MEDS: hydrALAZINE 25 MG tablet NG SCH ×4 (01:39→21:25)
[2021-02-23] MEDS: dexmedetomidine/D5W 100mL 100 ML IV PRN ×2 (01:40→04:46)
--- NOTE | 2021-02-23 06:14 | NUR ---
report given to Garland/YARELI
[2021-02-23 06:19] LABS: D-DIMER 1.85 MG/L FEU (0-0.50); PARTIAL THROMBOPLASTIN TIME 29 SECONDS (22-32)
[2021-02-23 06:20] LABS: BASOPHILS # (AUTO) 0.1 X10'3 (0-0.2); BASOPHILS % (AUTO) 0.3 % (0-1); EOSINOPHILS # (AUTO) 0.1 X10'3 (0-0.9); EOSINOPHILS % (AUTO) 0.3 % (0-6); HEMATOCRIT 30.9 % (35.0-45.0); HEMOGLOBIN 10.2 g/dl (12.0-16.0); LYMPHOCYTES # (AUTO) 0.7 X10'3 (1.1-4.8); MEAN CORPUSCULAR HEMOGLOBIN 27.3 PG (27.0-31.0); MEAN CORPUSCULAR HGB CONC 33.2 g/dL (33.0-36.5); MEAN CORPUSCULAR VOLUME 82.3 FL (78-98); MEAN PLATELET VOLUME 7.1 FL (7.4-10.4); MONOCYTES # (AUTO) 0.7 X10'3 (0-0.9); MONOCYTES % (AUTO) 4.3 % (2-12); NEUTROPHILS # (AUTO) 14.9 X10'3 (1.8-7.7); NEUTROPHILS % (AUTO) 91.1 % (42-75); PLATELET COUNT 273 X10'3 (140-440); RED BLOOD COUNT 3.75 X10'6 (4.20-5.60); RED CELL DISTRIBUTION WIDTH 14.7 % (11.5-14.5); WHITE BLOOD COUNT 16.4 X10'3 (4.5-11.0)
[2021-02-23 06:56] LABS: ALANINE AMINOTRANSFERASE 9 U/L (12-78); ALBUMIN 1.7 G/DL (3.4-5.0); ALBUMIN/GLOBULIN RATIO 0.4 (1.1-1.5); ALKALINE PHOSPHATASE 205 IU/L (46-116); ANION GAP 7 (8-16); ASPARTATE AMINO TRANSFERASE 10 U/L (10-37); BILIRUBIN,TOTAL 0.4 MG/DL (0.1-1.0); BLOOD UREA NITROGEN 39 MG/DL (7-18); BUN/CREATININE RATIO 55.7 (6.6-38.0); C-REACTIVE PROTEIN 5.63 MG/DL (0.0-0.5); CALCIUM 8.1 MG/DL (8.5-10.1); CHLORIDE 105 MMOL/L (99-107); GLUCOSE 165 MG/DL (70-104); LACTATE DEHYDROGENASE 281 U/L (81-234); MAGNESIUM 1.8 MG/DL (1.5-2.4); POTASSIUM 4.2 MMOL/L (3.5-5.1); SODIUM 140 MMOL/L (135-145); TOTAL CARBON DIOXIDE 28.3 MMOL/L (24-32); TOTAL PROTEIN 5.7 G/DL (6.4-8.2); eGFR 82 ML/MIN
[2021-02-23] MEDS: famotidine 20mg tablet NG SCH ×2 (07:28→21:25)
[2021-02-23] MEDS: aspirin 325mg tablet NG SCH (07:28)
[2021-02-23] MEDS: dexamethasone 4mg/ml inj IV SCH ×2 (07:28→21:25)
[2021-02-23] MEDS: amLODIPine 5mg tablet NG SCH ×2 (07:29→21:25)
[2021-02-23] MEDS: enoxaparin 40mg/0.4ml syringe SUBCUT SCH ×2 (07:29→21:25)
[2021-02-23] MEDS: lisinopril 20mg tablet NG SCH (07:29)
[2021-02-23] MEDS: furosemide 40mg/4ml inj IV SCH ×2 (07:29→21:25)
[2021-02-23] MEDS: HYDROcodone/acetaminophen 5mg/325mg tablet PO PRN ×2 (07:30→19:13)
[2021-02-23] MEDS: docusate sodium 100mg/10ml UD cup NG SCH ×2 (07:39→21:25)
[2021-02-23] MEDS: insulin Lispro (HumaLOG) vial - multi-dose SQ SCH ×2 (12:36→19:00)
--- NOTE | 2021-02-23 16:22 | NUR ---
REPORT CALLED TO YARELI GALO ON ORTHO. PT S GONG TO ROOM 4021B. VITAL SIGNS STABLE AND NADN. WILL TRANSPORT VIA WHEELCHAIR.
--- NOTE | 2021-02-23 17:43 | NUR ---
patient arrived from CICU to [facility] floor room 4019W . patient transferred on a wheelchair by staff nurse anesthetist. patient was alert and oriented x 4 with stable vital signs .BS was 196, patient was on 15L high flow nasal cannula. patient has two pIV on the left and and one PIV on the right . flushed and patent. patient was oriented to room and equipment. patient demonstrate how to use a call delgado
[2021-02-23] MEDS: morphine 2 MG/ML inj. syringe IV PRN (21:25)
[2021-02-23] MEDS: insulin glargine (Lantus) pen - multi-dose SQ SCH (21:25)
[2021-02-23] MEDS: pramipexole 0.25mg tablet NG SCH (21:25)
--- NOTE | 2021-02-23 23:04 | NUR ---
all night time meds including lantus and morphine were not saved on emar. i used administer button to create late entries.
[2021-02-24] MEDS ORDERED: guaiFENesin 200 MG/10 ML oral syrup UD cup PO PRN (01:25)
[2021-02-24] MEDS ORDERED: HYDROcodone/acetaminophen 5mg/325mg tablet PO PRN (01:25)
[2021-02-24] MEDS: hydrALAZINE 25 MG tablet NG SCH (02:28)
[2021-02-24] MEDS: HYDROcodone/acetaminophen 5mg/325mg tablet PO PRN ×3 (02:29→21:00)
[2021-02-24 06:00] VITALS: BP 125/59
--- NOTE | 2021-02-24 06:10 | NUR ---
RECEIVED REPORT FROM YARELI DESAI
--- NOTE | 2021-02-24 06:36 | NUR ---
Problems reprioritized. Patient report given, questions answered & plan of care reviewed with YARELI SPANN.
[2021-02-24] MEDS ORDERED: acetaminophen 325mg tablet PO PRN ×2 (06:59)
[2021-02-24] MEDS ORDERED: dextrose ORAL solution 15 GM/59 ML bottle PO PRN ×2 (07:00)
[2021-02-24] MEDS ORDERED: mag hydrox/Alum hydrox/simeth 30ml oral suspension PO PRN (07:01)
[2021-02-24] MEDS ORDERED: magnesium hydroxide 30ml (MOM) UD suspension PO PRN (07:02)
[2021-02-24] MEDS: furosemide 40mg/4ml inj IV SCH ×2 (07:07→20:48)
[2021-02-24] MEDS: dexamethasone 4mg/ml inj IV SCH ×2 (07:09→20:47)
[2021-02-24] MEDS: lisinopril 20mg tablet PO SCH (07:15)
[2021-02-24] MEDS: aspirin 325mg tablet PO SCH (07:15)
[2021-02-24] MEDS: famotidine 20mg tablet PO SCH ×2 (07:15→20:49)
[2021-02-24] MEDS: amLODIPine 5mg tablet PO SCH ×2 (07:16→20:56)
[2021-02-24] MEDS: hydrALAZINE 25 MG tablet PO SCH ×3 (07:17→20:55)
[2021-02-24] MEDS: enoxaparin 40mg/0.4ml syringe SUBCUT SCH ×2 (07:18→20:49)
[2021-02-24] MEDS: docusate sodium 100mg/10ml UD cup PO SCH ×2 (07:26→20:00)
[2021-02-24 08:36] LABS: BASOPHILS % (AUTO) 0.1 % (0-1); EOSINOPHILS % (AUTO) 0.1 % (0-6); HEMATOCRIT 32.6 % (35.0-45.0); HEMOGLOBIN 10.7 g/dl (12.0-16.0); LYMPHOCYTES # (AUTO) 0.7 X10'3 (1.1-4.8); MEAN CORPUSCULAR HGB CONC 32.7 g/dL (33.0-36.5); MEAN CORPUSCULAR VOLUME 82.6 FL (78-98); MEAN PLATELET VOLUME 7.6 FL (7.4-10.4); MONOCYTES # (AUTO) 0.5 X10'3 (0-0.9); NEUTROPHILS # (AUTO) 22.2 X10'3 (1.8-7.7); NEUTROPHILS % (AUTO) 94.8 % (42-75); PLATELET COUNT 417 X10'3 (140-440); RED BLOOD COUNT 3.95 X10'6 (4.20-5.60); WHITE BLOOD COUNT 23.5 X10'3 (4.5-11.0)
[2021-02-24] MEDS: insulin Lispro (HumaLOG) vial - multi-dose SQ SCH ×2 (08:55→18:57)
[2021-02-24 09:27] LABS: ALANINE AMINOTRANSFERASE 18 U/L (12-78); ALBUMIN 2.2 G/DL (3.4-5.0); ALBUMIN/GLOBULIN RATIO 0.5 (1.1-1.5); ALKALINE PHOSPHATASE 216 IU/L (46-116); ANION GAP 10 (8-16); ASPARTATE AMINO TRANSFERASE 19 U/L (10-37); BILIRUBIN,TOTAL 0.4 MG/DL (0.1-1.0); BLOOD UREA NITROGEN 44 MG/DL (7-18); BUN/CREATININE RATIO 54.3 (6.6-38.0); C-REACTIVE PROTEIN 6.01 MG/DL (0.0-0.5); CALCIUM 8.2 MG/DL (8.5-10.1); CHLORIDE 104 MMOL/L (99-107); CREATININE 0.81 MG/DL (0.40-0.90); GLUCOSE 123 MG/DL (70-104); LACTATE DEHYDROGENASE 442 U/L (81-234); MAGNESIUM 1.9 MG/DL (1.5-2.4); PHOSPHORUS 3.5 MG/DL (2.3-4.5); POTASSIUM 4.2 MMOL/L (3.5-5.1); SODIUM 141 MMOL/L (135-145); TOTAL CARBON DIOXIDE 26.7 MMOL/L (24-32); TOTAL PROTEIN 6.7 G/DL (6.4-8.2); eGFR 70 ML/MIN
[2021-02-24 09:53] LABS: PARTIAL THROMBOPLASTIN TIME 29 SECONDS (22-32)
[2021-02-24 10:00] VITALS: BP 137/68
--- NOTE | 2021-02-24 13:33 | NUR ---
PATIENT ATE 2 BITES OF FOOD AND DECIDED TO NOT EAT THE REST, NURSING STAFF OFFERED AN ALTERNATE CHOICE, PT REFUSED TO EAT ANY MORE AT THIS TIME, PT BG IS 108, THEREFORE PT IS NOT A CANDIDATE FOR INSULIN AT THIS TIME, CONTINUE TO MONITOR
[2021-02-24 18:00] VITALS: BP 131/71
--- NOTE | 2021-02-24 18:06 | NUR ---
gave report to sharita garcia
--- NOTE | 2021-02-24 18:41 | NUR ---
Patient in room ORTHO 4021. I have received report from YARELI SPANN and had the opportunity to ask questions and assume patient care.
[2021-02-24] MEDS: pramipexole 0.25mg tablet PO SCH (20:48)
[2021-02-24] MEDS: insulin glargine (Lantus) pen - multi-dose SQ SCH (20:59)
[2021-02-24 22:00] VITALS: BP 141/74
[2021-02-25] VITALS (7 sets, daily range): BP systolic 132–144; BP diastolic 63–76
[2021-02-25] MEDS: hydrALAZINE 25 MG tablet PO SCH ×4 (01:29→19:40)
[2021-02-25] MEDS: HYDROcodone/acetaminophen 5mg/325mg tablet PO PRN ×3 (05:33→19:56)
--- NOTE | 2021-02-25 06:10 | NUR ---
received report from sharita garcia
--- NOTE | 2021-02-25 06:31 | NUR ---
Problems reprioritized. Patient report given, questions answered & plan of care reviewed with sharita Diaz.
[2021-02-25] MEDS: furosemide 40mg/4ml inj IV SCH ×2 (07:15→19:38)
[2021-02-25] MEDS: dexamethasone 4mg/ml inj IV SCH ×2 (07:17→19:38)
[2021-02-25] MEDS: enoxaparin 40mg/0.4ml syringe SUBCUT SCH ×2 (07:18→19:39)
[2021-02-25] MEDS: amLODIPine 5mg tablet PO SCH ×2 (07:20→19:40)
[2021-02-25] MEDS: docusate sod 100mg capsule PO SCH ×2 (07:20→19:39)
[2021-02-25] MEDS: lisinopril 20mg tablet PO SCH (07:21)
[2021-02-25] MEDS: famotidine 20mg tablet PO SCH ×2 (07:21→19:39)
[2021-02-25] MEDS: aspirin 325mg tablet PO SCH (07:21)
[2021-02-25 07:45] LABS: BASOPHILS % (AUTO) 0.2 % (0-1); EOSINOPHILS % (AUTO) 0.1 % (0-6); HEMATOCRIT 30.7 % (35.0-45.0); HEMOGLOBIN 9.8 g/dl (12.0-16.0); LYMPHOCYTES # (AUTO) 0.6 X10'3 (1.1-4.8); MEAN CORPUSCULAR HEMOGLOBIN 26.9 PG (27.0-31.0); MEAN CORPUSCULAR HGB CONC 31.8 g/dL (33.0-36.5); MEAN CORPUSCULAR VOLUME 84.5 FL (78-98); MEAN PLATELET VOLUME 7.3 FL (7.4-10.4); MONOCYTES # (AUTO) 0.5 X10'3 (0-0.9); MONOCYTES % (AUTO) 3.8 % (2-12); NEUTROPHILS # (AUTO) 10.8 X10'3 (1.8-7.7); NEUTROPHILS % (AUTO) 90.9 % (42-75); PARTIAL THROMBOPLASTIN TIME 28 SECONDS (22-32); PLATELET COUNT 308 X10'3 (140-440); RED BLOOD COUNT 3.63 X10'6 (4.20-5.60); RED CELL DISTRIBUTION WIDTH 15.1 % (11.5-14.5); WHITE BLOOD COUNT 11.9 X10'3 (4.5-11.0)
[2021-02-25 07:56] LABS: ALANINE AMINOTRANSFERASE 13 U/L (12-78); ALBUMIN 1.9 G/DL (3.4-5.0); ALBUMIN/GLOBULIN RATIO 0.5 (1.1-1.5); ALKALINE PHOSPHATASE 168 IU/L (46-116); ANION GAP 7 (8-16); ASPARTATE AMINO TRANSFERASE 7 U/L (10-37); BILIRUBIN,TOTAL 0.3 MG/DL (0.1-1.0); BLOOD UREA NITROGEN 47 MG/DL (7-18); BUN/CREATININE RATIO 64.4 (6.6-38.0); C-REACTIVE PROTEIN 2.87 MG/DL (0.0-0.5); CALCIUM 8.2 MG/DL (8.5-10.1); CHLORIDE 106 MMOL/L (99-107); CREATININE 0.73 MG/DL (0.40-0.90); GLUCOSE 129 MG/DL (70-104); LACTATE DEHYDROGENASE 246 U/L (81-234); PHOSPHORUS 3.2 MG/DL (2.3-4.5); POTASSIUM 3.8 MMOL/L (3.5-5.1); PREALBUMIN 15.9 MG/DL (19-36); SODIUM 144 MMOL/L (135-145); TOTAL CARBON DIOXIDE 30.9 MMOL/L (24-32); TOTAL PROTEIN 6.1 G/DL (6.4-8.2); eGFR 78 ML/MIN
--- NOTE | 2021-02-25 09:00 | NUR ---
pt is not eating well, her bg this morning is 115, therefore she is not a candidate for insulin at this time
--- NOTE | 2021-02-25 09:55 | NUR ---
Koffi Consult: Pt PO remains poor ~41% avg full liquids past 3 days since NG removal w/ 0-25% meals yesterday not meeting needs. Pt advanced to MM5/thin diet per ROUNDING AND BACKING MACHINE OPERATOR recs this AM pending PO hx first solid meals today. RD recommends Ensure Enlive TIDWM for additional kcals/protein; notified. Koffi 12 w/ skin intact per EMR. LBM 02/23 receiving routine colace. Will continue to monitor for further PO trends; IF PO remains poor would benefit from NG feeds to optimize nutrition status. Recommendations: 1) Continue MM5/thin diet per ROUNDING AND BACKING MACHINE OPERATOR/MD; advance to regular in view of prior poor PO hx. Encourage PO; IF PO intake adequate consider carb controlled restriction 2) Ensure Enlive TIDWM; pending MD verification in EMR 3) IF pt PO meal intake remains inadequate, NG feeds using Vital AF at 80 mL/hr goal to provide 1920 mL total volume/day, 2304 kcal, 144 g protein, and 1557 mL water 4) IF TF; Additional 125 mL water flush Q4H; monitor serum Na 5) IF TF; Prealbumin q Monday/; Daily scaled weights 6) Routine bowel care Addendum: 02/25/21 at [address] Amended: Links added.
[2021-02-25] MEDS: insulin Lispro (HumaLOG) vial - multi-dose SQ SCH ×2 (12:51→19:47)
[2021-02-25] MEDS: lactose-reduced food (Ensure Enlive) - 237ml bottle PO SCH ×2 (13:00→18:00)
--- NOTE | 2021-02-25 13:12 | NUR ---
continue to encourage po intake, encourage use of her IS, and encourage proning, pt not receptive to education at this time
--- NOTE | 2021-02-25 18:29 | NUR ---
gave report to sharita epps
--- NOTE | 2021-02-25 18:30 | NUR ---
Patient in room ORTHO 4021. I have received report from Emily DOWNS and had the opportunity to ask questions and assume patient care.
[2021-02-25] MEDS: pramipexole 0.25mg tablet PO SCH (19:39)
[2021-02-25] MEDS: insulin glargine (Lantus) pen - multi-dose SQ SCH (21:34)
[2021-02-26 02:00] VITALS: BP 139/68
[2021-02-26] MEDS: HYDROcodone/acetaminophen 5mg/325mg tablet PO PRN (02:28)
[2021-02-26] MEDS: hydrALAZINE 25 MG tablet PO SCH ×4 (02:28→19:57)
--- NOTE | 2021-02-26 06:19 | NUR ---
Problems reprioritized. Patient report given, questions answered & plan of care reviewed with Maggi RN at bedside.
[2021-02-26 06:30] VITALS: BP 142/73
--- NOTE | 2021-02-26 06:47 | NUR ---
Patient in room ORTHO 4021. I have received report from mich sheriff and had the opportunity to ask questions and assume patient care.
[2021-02-26 07:56] LABS: BASOPHILS % (AUTO) 0.1 % (0-1); EOSINOPHILS % (AUTO) 0 % (0-6); HEMATOCRIT 31.8 % (35.0-45.0); HEMOGLOBIN 10.6 g/dl (12.0-16.0); LYMPHOCYTES # (AUTO) 0.7 X10'3 (1.1-4.8); LYMPHOCYTES % (AUTO) 6.8 % (21-51); MEAN CORPUSCULAR HEMOGLOBIN 27.8 PG (27.0-31.0); MEAN CORPUSCULAR HGB CONC 33.2 g/dL (33.0-36.5); MEAN CORPUSCULAR VOLUME 83.7 FL (78-98); MEAN PLATELET VOLUME 7.2 FL (7.4-10.4); MONOCYTES # (AUTO) 0.5 X10'3 (0-0.9); MONOCYTES % (AUTO) 5.5 % (2-12); NEUTROPHILS # (AUTO) 8.5 X10'3 (1.8-7.7); NEUTROPHILS % (AUTO) 87.6 % (42-75); PLATELET COUNT 292 X10'3 (140-440); WHITE BLOOD COUNT 9.7 X10'3 (4.5-11.0)
[2021-02-26] MEDS ORDERED: dexamethasone 4mg/ml inj IV SCH (08:00)
[2021-02-26] MEDS: lactose-reduced food (Ensure Enlive) - 237ml bottle PO SCH ×3 (08:00→18:00)
[2021-02-26] MEDS: docusate sod 100mg capsule PO SCH ×2 (08:01→19:57)
[2021-02-26] MEDS: aspirin 325mg tablet PO SCH (08:01)
[2021-02-26] MEDS: furosemide 40mg/4ml inj IV SCH ×2 (08:01→19:56)
[2021-02-26] MEDS: dexamethasone inj 5 MG in normal saline 50ml IV soln 50 ML IV SCH ×2 (08:01→19:55)
[2021-02-26] MEDS: famotidine 20mg tablet PO SCH ×2 (08:02→19:56)
[2021-02-26] MEDS: lisinopril 20mg tablet PO SCH (08:02)
[2021-02-26] MEDS: enoxaparin 40mg/0.4ml syringe SUBCUT SCH ×2 (08:03→19:56)
[2021-02-26] MEDS: amLODIPine 5mg tablet PO SCH ×2 (08:03→19:57)
[2021-02-26 08:35] LABS: ALANINE AMINOTRANSFERASE 12 U/L (12-78); ALBUMIN/GLOBULIN RATIO 0.5 (1.1-1.5); ALKALINE PHOSPHATASE 164 IU/L (46-116); ANION GAP 9 (8-16); ASPARTATE AMINO TRANSFERASE 10 U/L (10-37); BILIRUBIN,TOTAL 0.3 MG/DL (0.1-1.0); BLOOD UREA NITROGEN 49 MG/DL (7-18); BUN/CREATININE RATIO 67.1 (6.6-38.0); C-REACTIVE PROTEIN 1.57 MG/DL (0.0-0.5); CALCIUM 8.4 MG/DL (8.5-10.1); CHLORIDE 106 MMOL/L (99-107); CREATININE 0.73 MG/DL (0.40-0.90); GLUCOSE 140 MG/DL (70-104); LACTATE DEHYDROGENASE 249 U/L (81-234); MAGNESIUM 2.1 MG/DL (1.5-2.4); POTASSIUM 3.7 MMOL/L (3.5-5.1); SODIUM 146 MMOL/L (135-145); TOTAL CARBON DIOXIDE 31.1 MMOL/L (24-32); TOTAL PROTEIN 6.1 G/DL (6.4-8.2); eGFR 78 ML/MIN
[2021-02-26] MEDS: insulin Lispro (HumaLOG) vial - multi-dose SQ SCH (09:21)
[2021-02-26 09:38] VITALS: BP 131/65
[2021-02-26 11:01] LABS: D-DIMER 1.56 MG/L FEU (0-0.50); PARTIAL THROMBOPLASTIN TIME 26 SECONDS (22-32)
[2021-02-26 14:00] VITALS: BP 137/58
--- NOTE | 2021-02-26 14:46 | NUR ---
NO INSULIN GIVEN FOR LUNCH D/T PT REFUSED LUNCH AND BS 129
[2021-02-26 18:00] VITALS: BP 116/49
[2021-02-26] MEDS: pramipexole 0.25mg tablet PO SCH (19:57)
[2021-02-26] MEDS: insulin glargine (Lantus) pen - multi-dose SQ SCH (21:00)
[2021-02-26 22:00] VITALS: BP 114/49
[2021-02-27] VITALS (7 sets, daily range): BP systolic 114–137; BP diastolic 51–71
[2021-02-27] MEDS: hydrALAZINE 25 MG tablet PO SCH ×4 (02:22→20:50)
--- NOTE | 2021-02-27 06:18 | NUR ---
Problems reprioritized. Patient report given, questions answered & plan of care reviewed with SIMEON RN. NO DINNER BS COVERAGE GIVEN LAST NIGHT, PATIENT DID NOT EAT AND BS WAS 149. AT 2100 BS WAS 122 SO ONLY RECEIVED LANTUS. NUMEROUS LOOSE STOOLS DURING THE NIGHT AND REPORTED THIS TO ONCOMING RN.
--- NOTE | 2021-02-27 06:26 | NUR ---
Patient in room ORTHO 4021. I have received report from wayne sheriff and had the opportunity to ask questions and assume patient care.
[2021-02-27] MEDS: docusate sod 100mg capsule PO SCH ×2 (06:32→20:00)
[2021-02-27] MEDS: lactose-reduced food (Ensure Enlive) - 237ml bottle PO SCH ×4 (08:00→17:46)
[2021-02-27 08:08] LABS: BASOPHILS % (AUTO) 0.1 % (0-1); EOSINOPHILS % (AUTO) 0.5 % (0-6); HEMATOCRIT 32.4 % (35.0-45.0); HEMOGLOBIN 10.6 g/dl (12.0-16.0); LYMPHOCYTES # (AUTO) 0.8 X10'3 (1.1-4.8); MEAN CORPUSCULAR HEMOGLOBIN 27.5 PG (27.0-31.0); MEAN CORPUSCULAR HGB CONC 32.7 g/dL (33.0-36.5); MEAN CORPUSCULAR VOLUME 84.1 FL (78-98); MONOCYTES # (AUTO) 0.8 X10'3 (0-0.9); MONOCYTES % (AUTO) 8.7 % (2-12); NEUTROPHILS # (AUTO) 7.2 X10'3 (1.8-7.7); NEUTROPHILS % (AUTO) 81.7 % (42-75); PLATELET COUNT 289 X10'3 (140-440); RED BLOOD COUNT 3.85 X10'6 (4.20-5.60); RED CELL DISTRIBUTION WIDTH 14.7 % (11.5-14.5); WHITE BLOOD COUNT 8.8 X10'3 (4.5-11.0)
[2021-02-27] MEDS: lisinopril 20mg tablet PO SCH (08:11)
[2021-02-27] MEDS: amLODIPine 5mg tablet PO SCH ×2 (08:11→20:55)
[2021-02-27] MEDS: aspirin 325mg tablet PO SCH (08:11)
[2021-02-27] MEDS: furosemide 40mg/4ml inj IV SCH ×2 (08:11→20:52)
[2021-02-27] MEDS: famotidine 20mg tablet PO SCH ×2 (08:11→20:50)
[2021-02-27] MEDS: HYDROcodone/acetaminophen 5mg/325mg tablet PO PRN ×3 (08:12→22:23)
[2021-02-27] MEDS: enoxaparin 40mg/0.4ml syringe SUBCUT SCH ×2 (08:12→20:51)
[2021-02-27 08:24] LABS: D-DIMER 1.24 MG/L FEU (0-0.50); PARTIAL THROMBOPLASTIN TIME 26 SECONDS (22-32)
[2021-02-27] MEDS: dexamethasone inj 4 MG in normal saline 50ml IV soln 50 ML IV SCH ×2 (08:31→20:51)
[2021-02-27 08:48] LABS: ALANINE AMINOTRANSFERASE 15 U/L (12-78); ALBUMIN/GLOBULIN RATIO 0.5 (1.1-1.5); ALKALINE PHOSPHATASE 154 IU/L (46-116); ANION GAP 5 (8-16); ASPARTATE AMINO TRANSFERASE 17 U/L (10-37); BILIRUBIN,TOTAL 0.3 MG/DL (0.1-1.0); BLOOD UREA NITROGEN 45 MG/DL (7-18); BUN/CREATININE RATIO 60.8 (6.6-38.0); C-REACTIVE PROTEIN 0.95 MG/DL (0.0-0.5); CALCIUM 8.3 MG/DL (8.5-10.1); CHLORIDE 108 MMOL/L (99-107); CREATININE 0.74 MG/DL (0.40-0.90); GLUCOSE 96 MG/DL (70-104); LACTATE DEHYDROGENASE 230 U/L (81-234); MAGNESIUM 1.8 MG/DL (1.5-2.4); PHOSPHORUS 2.5 MG/DL (2.3-4.5); POTASSIUM 3.4 MMOL/L (3.5-5.1); SODIUM 149 MMOL/L (135-145); TOTAL CARBON DIOXIDE 36.4 MMOL/L (24-32); TOTAL PROTEIN 6.1 G/DL (6.4-8.2); eGFR 77 ML/MIN
[2021-02-27] MEDS ORDERED: magnesium 4gm in 100ml NS 100 ML IV PRN (14:55)
[2021-02-27] MEDS ORDERED: potassium Cl 40MEQ/1/2NS 520ml 520 ML IV PRN (14:55)
[2021-02-27] MEDS ORDERED: potassium Cl 20 mEq SR tablet PO PRN (14:55)
[2021-02-27] MEDS ORDERED: magnesium Cl slow-release 64mg tablet PO PRN (14:55)
[2021-02-27] MEDS: potassium Cl 20 mEq SR tablet PO PRN (15:04)
--- NOTE | 2021-02-27 18:14 | NUR ---
Problems reprioritized. Patient report given, questions answered & plan of care reviewed with alessandro rn.
[2021-02-27] MEDS: K and/or MAG REPLACEMENT MC SCH (20:20)
[2021-02-27] MEDS: insulin Lispro (HumaLOG) vial - multi-dose SQ SCH (20:49)
[2021-02-27] MEDS: pramipexole 0.25mg tablet PO SCH (21:40)
[2021-02-27] MEDS: insulin glargine (Lantus) pen - multi-dose SQ SCH (22:26)
--- NOTE | 2021-02-27 23:27 | NUR ---
Upon forcing 200 ml water per misc. nursing order patient states "I cant digest the water as it goes down, I need ice chips because I can suck on it." Will pass this on in report
[2021-02-28] VITALS (7 sets, daily range): BP systolic 115–133; BP diastolic 49–69
[2021-02-28] MEDS: potassium Cl 20 mEq SR tablet PO PRN ×2 (00:59→02:01)
--- NOTE | 2021-02-28 01:01 | NUR ---
Just noticing Kdur 20 meq wasnt saved. It was administered at 2030
[2021-02-28] MEDS: hydrALAZINE 25 MG tablet PO SCH ×4 (02:03→21:02)
--- NOTE | 2021-02-28 06:30 | NUR ---
Patient in room ORTHO 4021B. I have received report from YARELI SHARMA and had the opportunity to ask questions and assume patient care.
[2021-02-28 07:44] LABS: BASOPHILS % (AUTO) 0.1 % (0-1); EOSINOPHILS % (AUTO) 0.5 % (0-6); HEMATOCRIT 31.8 % (35.0-45.0); HEMOGLOBIN 10.3 g/dl (12.0-16.0); LYMPHOCYTES # (AUTO) 0.7 X10'3 (1.1-4.8); LYMPHOCYTES % (AUTO) 9.4 % (21-51); MEAN CORPUSCULAR HEMOGLOBIN 27.3 PG (27.0-31.0); MEAN CORPUSCULAR HGB CONC 32.4 g/dL (33.0-36.5); MEAN CORPUSCULAR VOLUME 84.2 FL (78-98); MEAN PLATELET VOLUME 7.2 FL (7.4-10.4); MONOCYTES # (AUTO) 0.4 X10'3 (0-0.9); MONOCYTES % (AUTO) 6.4 % (2-12); NEUTROPHILS # (AUTO) 5.8 X10'3 (1.8-7.7); NEUTROPHILS % (AUTO) 83.6 % (42-75); PLATELET COUNT 242 X10'3 (140-440); RED BLOOD COUNT 3.77 X10'6 (4.20-5.60); RED CELL DISTRIBUTION WIDTH 14.6 % (11.5-14.5)
[2021-02-28 07:48] LABS: D-DIMER 0.65 MG/L FEU (0-0.50); PARTIAL THROMBOPLASTIN TIME 29 SECONDS (22-32)
[2021-02-28] MEDS: docusate sod 100mg capsule PO SCH ×2 (07:58→21:02)
[2021-02-28] MEDS: aspirin 325mg tablet PO SCH (07:59)
[2021-02-28] MEDS: lisinopril 20mg tablet PO SCH (07:59)
[2021-02-28] MEDS: amLODIPine 5mg tablet PO SCH ×2 (08:00→21:02)
[2021-02-28] MEDS: K and/or MAG REPLACEMENT MC SCH ×2 (08:00→20:00)
[2021-02-28] MEDS: enoxaparin 40mg/0.4ml syringe SUBCUT SCH ×2 (08:00→21:01)
[2021-02-28] MEDS: famotidine 20mg tablet PO SCH ×2 (08:00→21:02)
[2021-02-28] MEDS: furosemide 40mg/4ml inj IV SCH ×2 (08:00→21:01)
[2021-02-28] MEDS: dexamethasone inj 4 MG in normal saline 50ml IV soln 50 ML IV SCH (08:00)
[2021-02-28] MEDS: lactose-reduced food (Ensure Enlive) - 237ml bottle PO SCH ×3 (08:01→18:00)
[2021-02-28 08:02] LABS: ALANINE AMINOTRANSFERASE 15 U/L (12-78); ALBUMIN/GLOBULIN RATIO 0.5 (1.1-1.5); ALKALINE PHOSPHATASE 150 IU/L (46-116); ANION GAP 4 (8-16); ASPARTATE AMINO TRANSFERASE 12 U/L (10-37); BILIRUBIN,TOTAL 0.3 MG/DL (0.1-1.0); BLOOD UREA NITROGEN 43 MG/DL (7-18); BUN/CREATININE RATIO 61.4 (6.6-38.0); C-REACTIVE PROTEIN 0.88 MG/DL (0.0-0.5); CHLORIDE 108 MMOL/L (99-107); GLUCOSE 93 MG/DL (70-104); LACTATE DEHYDROGENASE 225 U/L (81-234); MAGNESIUM 1.9 MG/DL (1.5-2.4); PHOSPHORUS 2.6 MG/DL (2.3-4.5); POTASSIUM 3.9 MMOL/L (3.5-5.1); SODIUM 149 MMOL/L (135-145); TOTAL CARBON DIOXIDE 37.2 MMOL/L (24-32); TOTAL PROTEIN 5.9 G/DL (6.4-8.2); eGFR 82 ML/MIN
--- NOTE | 2021-02-28 09:00 | NUR ---
Koffi Consult: Pt PO remains poor ~41% avg full liquids past 3 days since Reassessment: PO intake remains poor on MM5 diet, mostly 25% of meals and refusal of all ONS not meeting needs. D/w RN recommendation for TF to help meet nutrient needs if within pt plan of care. LBM 02/27. Will continue to monitor and make recommendations as appropriate. Recommendations: 1) Continue MM5/thin diet per VALLEZ FILTER OPERATOR/MD; advance to regular in view of prior poor PO hx. Encourage PO; IF PO intake adequate consider carb controlled restriction 2) Ensure Enlive TIDWM; if pt continues to refuse may consider d/c 3) IF pt PO meal intake remains inadequate, NG feeds using Vital AF at 80 mL/hr goal to provide 1920 mL total volume/day, 2304 kcal, 144 g protein, and 1557 mL water 4) IF TF; Additional 125 mL water flush Q4H; monitor serum Na 5) IF TF; Prealbumin q Monday/; Daily scaled weights 6) Routine bowel care Addendum: 02/28/21 at [address] Amended: Links added.
[2021-02-28] MEDS: insulin Lispro (HumaLOG) vial - multi-dose SQ SCH (09:03)
--- NOTE | 2021-02-28 18:55 | NUR ---
Problems reprioritized. Patient report given, questions answered & plan of care reviewed with YARELI De La Rosa.
[2021-02-28] MEDS: insulin glargine (Lantus) pen - multi-dose SQ SCH (20:58)
[2021-02-28] MEDS: pramipexole 0.25mg tablet PO SCH (21:02)
[2021-02-28] MEDS: HYDROcodone/acetaminophen 5mg/325mg tablet PO PRN (21:07)
[2021-03-01 02:00] VITALS: BP 131/60
[2021-03-01] MEDS: hydrALAZINE 25 MG tablet PO SCH ×3 (02:00→15:42)
[2021-03-01 06:00] VITALS: BP 129/81
--- NOTE | 2021-03-01 06:27 | NUR ---
Patient in room ORTHO 4021B. I have received report from YARELI GARCIA and had the opportunity to ask questions and assume patient care.
[2021-03-01 07:35] LABS: BASOPHILS % (AUTO) 0.4 % (0-1); EOSINOPHILS # (AUTO) 0.2 X10'3 (0-0.9); EOSINOPHILS % (AUTO) 2.3 % (0-6); HEMATOCRIT 33.4 % (35.0-45.0); HEMOGLOBIN 10.9 g/dl (12.0-16.0); LYMPHOCYTES # (AUTO) 0.8 X10'3 (1.1-4.8); LYMPHOCYTES % (AUTO) 9.9 % (21-51); MEAN CORPUSCULAR HEMOGLOBIN 27.3 PG (27.0-31.0); MEAN CORPUSCULAR HGB CONC 32.6 g/dL (33.0-36.5); MEAN CORPUSCULAR VOLUME 83.9 FL (78-98); MEAN PLATELET VOLUME 7.4 FL (7.4-10.4); MONOCYTES # (AUTO) 0.8 X10'3 (0-0.9); MONOCYTES % (AUTO) 9.2 % (2-12); NEUTROPHILS # (AUTO) 6.3 X10'3 (1.8-7.7); NEUTROPHILS % (AUTO) 78.2 % (42-75); PLATELET COUNT 221 X10'3 (140-440); RED BLOOD COUNT 3.99 X10'6 (4.20-5.60); RED CELL DISTRIBUTION WIDTH 14.8 % (11.5-14.5); WHITE BLOOD COUNT 8.1 X10'3 (4.5-11.0)
[2021-03-01 07:50] LABS: PARTIAL THROMBOPLASTIN TIME 27 SECONDS (22-32)
[2021-03-01] MEDS: furosemide 40mg/4ml inj IV SCH (07:53)
[2021-03-01] MEDS: amLODIPine 5mg tablet PO SCH (07:59)
[2021-03-01] MEDS: aspirin 325mg tablet PO SCH (07:59)
[2021-03-01] MEDS: lisinopril 20mg tablet PO SCH (08:00)
[2021-03-01] MEDS: K and/or MAG REPLACEMENT MC SCH (08:00)
[2021-03-01] MEDS: famotidine 20mg tablet PO SCH (08:00)
[2021-03-01] MEDS ORDERED: dexamethasone inj 6 MG in normal saline 50ml IV soln 50 ML IV SCH (08:00)
[2021-03-01] MEDS: docusate sod 100mg capsule PO SCH (08:01)
[2021-03-01] MEDS: enoxaparin 40mg/0.4ml syringe SUBCUT SCH (08:08)
[2021-03-01] MEDS: lactose-reduced food (Ensure Enlive) - 237ml bottle PO SCH ×2 (08:12→13:05)
[2021-03-01 08:23] LABS: ALANINE AMINOTRANSFERASE 15 U/L (12-78); ALBUMIN/GLOBULIN RATIO 0.5 (1.1-1.5); ALKALINE PHOSPHATASE 147 IU/L (46-116); ANION GAP 5 (8-16); ASPARTATE AMINO TRANSFERASE 12 U/L (10-37); BILIRUBIN,TOTAL 0.3 MG/DL (0.1-1.0); BLOOD UREA NITROGEN 38 MG/DL (7-18); BUN/CREATININE RATIO 48.7 (6.6-38.0); C-REACTIVE PROTEIN 0.64 MG/DL (0.0-0.5); CALCIUM 8.3 MG/DL (8.5-10.1); CHLORIDE 107 MMOL/L (99-107); CREATININE 0.78 MG/DL (0.40-0.90); GLUCOSE 78 MG/DL (70-104); LACTATE DEHYDROGENASE 221 U/L (81-234); MAGNESIUM 1.9 MG/DL (1.5-2.4); PHOSPHORUS 2.3 MG/DL (2.3-4.5); POTASSIUM 3.4 MMOL/L (3.5-5.1); PREALBUMIN 19.7 MG/DL (19-36); SODIUM 150 MMOL/L (135-145); TOTAL CARBON DIOXIDE 37.6 MMOL/L (24-32); TOTAL PROTEIN 5.9 G/DL (6.4-8.2); eGFR 73 ML/MIN
[2021-03-01] MEDS: insulin Lispro (HumaLOG) vial - multi-dose SQ SCH (09:31)
[2021-03-01] MEDS: potassium Cl 20 mEq SR tablet PO PRN (09:31)
[2021-03-01 10:00] VITALS: BP 116/49
[2021-03-01 15:40] VITALS: BP 127/66
[2021-03-01 15:42] VITALS: BP_SYST 127
--- NOTE | 2021-03-01 16:04 | NUR ---
DC INSTRUCTIONS GIVEN, QUESTIONS ANSWERED. 2 IV'S REMOVED, NO COMPLICATIONS, CANULA INTACT. GATHERED BELONGINGS. PT LEFT ON GURNEY IN STABLE CONDITION.
== END 2021-03-01 16:19 | DRG 177 ==
LOC: ER 23:57 → ED HOLD 02-14 04:43 → ORTHO 4S 02-14 05:45 → CICU 2S 02-18 02:45 → ORTHO 4S 02-23 16:50
PROVIDERS: ADMIT Internal Medicine; ATTEND Family Medicine
PROC: XW033E5 Introduction of Remdesivir Anti-infective into Peripheral Vein, Percutaneous Approach, New Technology Group 5 (ICD-10-PCS; principal; 2021-02-14)
PROC: 5A0945A Assistance with Respiratory Ventilation, 24-96 Consecutive Hours, High Flow/Velocity Cannula (ICD-10-PCS; 2021-02-14)
PROC: B32T1ZZ Computerized Tomography (CT Scan) of Left Pulmonary Artery using Low Osmolar Contrast (ICD-10-PCS; 2021-02-14)
PROC: B3201ZZ Computerized Tomography (CT Scan) of Thoracic Aorta using Low Osmolar Contrast (ICD-10-PCS; 2021-02-14)
PROC: B32S1ZZ Computerized Tomography (CT Scan) of Right Pulmonary Artery using Low Osmolar Contrast (ICD-10-PCS; 2021-02-14)
PROC: 5A0935A Assistance with Respiratory Ventilation, Less than 24 Consecutive Hours, High Flow/Velocity Cannula (ICD-10-PCS; 2021-02-16)
PROC: 5A0935A Assistance with Respiratory Ventilation, Less than 24 Consecutive Hours, High Flow/Velocity Cannula (ICD-10-PCS; 2021-02-17)
PROC: 5A0935A Assistance with Respiratory Ventilation, Less than 24 Consecutive Hours, High Flow/Velocity Cannula (ICD-10-PCS; 2021-02-18)
PROC: 5A09457 Assistance with Respiratory Ventilation, 24-96 Consecutive Hours, Continuous Positive Airway Pressure (ICD-10-PCS; 2021-02-18)
PROC: 5A0955A Assistance with Respiratory Ventilation, Greater than 96 Consecutive Hours, High Flow/Velocity Cannula (ICD-10-PCS; 2021-02-21)
DX: U07.1 COVID-19 (principal); J12.82 Pneumonia due to coronavirus disease 2019; J96.01 Acute respiratory failure with hypoxia; J96.02 Acute respiratory failure with hypercapnia; D64.9 Anemia, unspecified; D72.810 Lymphocytopenia; E11.9 Type 2 diabetes mellitus without complications; I10 Essential (primary) hypertension; M79.7 Fibromyalgia; G89.29 Other chronic pain; Z96.641 Presence of right artificial hip joint; K21.9 Gastro-esophageal reflux disease without esophagitis; E87.6 Hypokalemia; M10.9 Gout, unspecified; G25.81 Restless legs syndrome; M19.90 Unspecified osteoarthritis, unspecified site; R68.84 Jaw pain; Z83.3 Family history of diabetes mellitus; Z90.710 Acquired absence of both cervix and uterus; Z88.8 Allergy status to other drugs, medicaments and biological substances; Z91.011 Allergy to milk products; Z79.899 Other long term (current) drug therapy; Z79.4 Long term (current) use of insulin; Z90.49 Acquired absence of other specified parts of digestive tract
CPT/HCPCS: 36415; 36600; 71045; 71275; 80048; 80053; 80076; 82803; 82948; 83036; 83605; 83615; 83690; 83735; 83880; 84100; 84134; 84145; 84484; 85007; 85018; 85025; 85379; 85610; 85730; 86140; 87040; 87081; 92508; 92616; 93005; 94660; 94760; 96365; 97110; 97116; 97161; 97530; 97535; 99291; G0378; J1100; J1650; J1815; J1940; J2270; J7030; Q9967

== ENCOUNTER 2021-07-09 13:31 | Inpatient (IN) | payer MEDICARE ==
[~2021-07-09] VITALS: Ht 162.6 cm; Wt 68.2 kg
[~2021-07-09 13:31] MED LIST changes: +AMLO5TAB4 PO; +ASPI-1264 PO; +FAMO-128 PO; +HYDR-3965 PO; +HYDR-4070 PO; +PRAM0.5T3 PO
[2021-07-09 14:38] LABS: BASOPHILS % (AUTO) 0.2 % (0-1); EOSINOPHILS % (AUTO) 0.7 % (0-6); HEMATOCRIT 28.7 % (35.0-45.0); HEMOGLOBIN 9.7 g/dl (12.0-16.0); LYMPHOCYTES # (AUTO) 0.8 X10'3 (1.1-4.8); LYMPHOCYTES % (AUTO) 14.8 % (21-51); MEAN CORPUSCULAR HEMOGLOBIN 26.8 PG (27.0-31.0); MEAN CORPUSCULAR HGB CONC 33.6 g/dL (33.0-36.5); MEAN CORPUSCULAR VOLUME 79.6 FL (78-98); MEAN PLATELET VOLUME 7.2 FL (7.4-10.4); MONOCYTES # (AUTO) 0.4 X10'3 (0-0.9); MONOCYTES % (AUTO) 7.2 % (2-12); NEUTROPHILS # (AUTO) 4.4 X10'3 (1.8-7.7); NEUTROPHILS % (AUTO) 77.1 % (42-75); PLATELET COUNT 171 X10'3 (140-440); RED BLOOD COUNT 3.61 X10'6 (4.20-5.60); RED CELL DISTRIBUTION WIDTH 13.3 % (11.5-14.5); WHITE BLOOD COUNT 5.7 X10'3 (4.5-11.0)
[2021-07-09 15:07] LABS: ALANINE AMINOTRANSFERASE 18 U/L (12-78); ALBUMIN 2.5 G/DL (3.4-5.0); ALBUMIN/GLOBULIN RATIO 0.7 (1.1-1.5); ALKALINE PHOSPHATASE 305 IU/L (46-116); ANION GAP 8 (8-16); ASPARTATE AMINO TRANSFERASE 14 U/L (10-37); BILIRUBIN,TOTAL 0.2 MG/DL (0.1-1.0); BLOOD UREA NITROGEN 33 MG/DL (7-18); BUN/CREATININE RATIO 30.3 (6.6-38.0); CALCIUM 8.3 MG/DL (8.5-10.1); CHLORIDE 95 MMOL/L (99-107); CREATININE 1.09 MG/DL (0.40-0.90); GLUCOSE 366 MG/DL (70-104); POTASSIUM 4.2 MMOL/L (3.5-5.1); SODIUM 131 MMOL/L (135-145); TOTAL CARBON DIOXIDE 27.9 MMOL/L (24-32); TOTAL PROTEIN 5.9 G/DL (6.4-8.2); eGFR 49 ML/MIN
[2021-07-09 15:13] LABS: C-REACTIVE PROTEIN 1.12 MG/DL (0.0-0.5)
[2021-07-09] MEDS ORDERED: ceFAZolin 1GM/D5W- ADD-VANTAGE 50 ML IV ONE (15:45)
[2021-07-09] MEDS ORDERED: piperacillin/tazo 3.375gm/50ml 50 ML IV ONE (16:00)
[2021-07-09] MEDS ORDERED: VANCOMYCIN 1GM/200ML IVPB 200 ML IV ONE (16:00)
[2021-07-09] MEDS ORDERED: vancomycin/NS 1 GM ADD-VANTAGE 250 ML IV ONE (16:00)
[2021-07-09] MEDS ORDERED: FAMO20TA8 PO (16:27)
[2021-07-09] MEDS ORDERED: LANTUS SQ (16:27)
[2021-07-09] MEDS ORDERED: PRAM0.5T12 PO (16:27)
[2021-07-09] MEDS ORDERED: ASPI-1071 PO (16:27)
[2021-07-09] MEDS ORDERED: LISI20TA28 PO (16:27)
[2021-07-09] MEDS ORDERED: magnesium 2GM in 50ml NS 50 ML IV PRN (17:30)
[2021-07-09] MEDS ORDERED: potassium CL 10mEq/100ml bag 100 ML IV PRN (17:30)
[2021-07-09] MEDS ORDERED: magnesium 4gm in 100ml NS 100 ML IV PRN (17:30)
[2021-07-09] MEDS ORDERED: potassium Cl 20 mEq SR tablet PO PRN ×2 (17:30)
[2021-07-09] MEDS ORDERED: morphine 2 MG/ML inj. syringe IV PRN (17:30)
[2021-07-09] MEDS: normal saline 1000ml 1,000 ML IV SCH (17:30)
[2021-07-09] MEDS ORDERED: ondansetron/PF 4mg/2ml inj IV PRN (17:30)
[2021-07-09] MEDS ORDERED: acetaminophen 325mg tablet PO PRN (17:30)
[2021-07-09] MEDS ORDERED: magnesium Cl slow-release 64mg tablet PO PRN (17:30)
[2021-07-09] MEDS ORDERED: glucagon, human recombinant 1mg kit SUBCUT PRN (17:45)
[2021-07-09] MEDS ORDERED: dextrose 50%-water 50ml dispensing syringe IV PRN (17:45)
[2021-07-09] MEDS ORDERED: MESSAGE TO PHARMACY PO ONE (17:45)
[2021-07-09] MEDS ORDERED: DEXTROSE 15 GM of carb/4 tabs (each vial/BOTTLE has 4 tablets) PO PRN ×2 (17:45)
[2021-07-09 18:12] LABS: MAGNESIUM 1.7 MG/DL (1.5-2.4)
[2021-07-09] MEDS: K and/or MAG REPLACEMENT MC SCH (20:00)
[2021-07-09] MEDS: insulin glargine (Lantus) pen - multi-dose SQ SCH (21:00)
--- NOTE | 2021-07-09 21:25 | NUR ---
Patient in the 70 years old female arrived in the unit at 2100 on the hospital bed On assessment, patient presents bruises on the right lower back, multiple wounds on both lower extremities, open to air, no drainage, decubitus ulcer on right heel.
[2021-07-09] MEDS: insulin Lispro (HumaLOG) vial - multi-dose SQ SCH (22:29)
[2021-07-10] VITALS: BP 132/70
[2021-07-10] MEDS: piperacillin/tazo 3.375gm/50ml 50 ML IV SCH ×3 (00:59→15:53)
[2021-07-10] MEDS: HYDROcodone/acetaminophen 5mg/325mg tablet PO PRN ×2 (01:48→01:52)
[2021-07-10] MEDS: normal saline 1000ml 1,000 ML IV SCH (03:30)
--- NOTE | 2021-07-10 06:30 | NUR ---
Patient in room [facility]. I have received report from Jermaine DOWNS and had the opportunity to ask questions and assume patient care.
[2021-07-10 06:34] LABS: BASOPHILS % (AUTO) 0.4 % (0-1); EOSINOPHILS # (AUTO) 0.1 X10'3 (0-0.9); EOSINOPHILS % (AUTO) 1.8 % (0-6); HEMATOCRIT 26.3 % (35.0-45.0); LYMPHOCYTES # (AUTO) 1.1 X10'3 (1.1-4.8); MEAN CORPUSCULAR HEMOGLOBIN 27.1 PG (27.0-31.0); MEAN CORPUSCULAR HGB CONC 34.1 g/dL (33.0-36.5); MEAN CORPUSCULAR VOLUME 79.4 FL (78-98); MEAN PLATELET VOLUME 7.6 FL (7.4-10.4); MONOCYTES # (AUTO) 0.6 X10'3 (0-0.9); MONOCYTES % (AUTO) 10.6 % (2-12); NEUTROPHILS # (AUTO) 3.5 X10'3 (1.8-7.7); NEUTROPHILS % (AUTO) 66.2 % (42-75); PLATELET COUNT 174 X10'3 (140-440); RED BLOOD COUNT 3.31 X10'6 (4.20-5.60); RED CELL DISTRIBUTION WIDTH 13.5 % (11.5-14.5); WHITE BLOOD COUNT 5.3 X10'3 (4.5-11.0)
[2021-07-10 07:00] LABS: ANION GAP 5 (8-16); BLOOD UREA NITROGEN 28 MG/DL (7-18); BUN/CREATININE RATIO 32.2 (6.6-38.0); CALCIUM 8.1 MG/DL (8.5-10.1); CHLORIDE 103 MMOL/L (99-107); CREATININE 0.87 MG/DL (0.40-0.90); MAGNESIUM 1.7 MG/DL (1.5-2.4); POTASSIUM 3.9 MMOL/L (3.5-5.1); SODIUM 140 MMOL/L (135-145); TOTAL CARBON DIOXIDE 31.8 MMOL/L (24-32); eGFR 64 ML/MIN
[2021-07-10] MEDS: dextrose 50%-water 50ml dispensing syringe IV PRN (07:02)
[2021-07-10 07:05] LABS: GLUCOSE 39 MG/DL (70-104)
[2021-07-10 07:44] VITALS: BP 106/66
[2021-07-10] MEDS: K and/or MAG REPLACEMENT MC SCH ×2 (08:00→19:12)
[2021-07-10 11:00] VITALS: BP 140/69
--- NOTE | 2021-07-10 11:34 | NUR ---
called pharmacy for vanco dose, not on the unit currently. Will picker operator from pharmacy.
[2021-07-10] MEDS: VANCOMYCIN 1GM/200ML IVPB 200 ML IV SCH ×2 (11:54→22:00)
--- NOTE | 2021-07-10 11:59 | NUR ---
Noted pt with T2DM, poorly controlled with A1c 12.0%. Pt A/O x 3 and confused per physical assessment. Pt would benefit from DM education once more appropriate. Noted pt presented d/t multiple weeping wounds to BLE. title closer at bedside per EMR, pending wound care note at this time. Will continue to follow and make recommendations as appropriate pending wound care assessment and trends in PO intake. Addendum: 07/10/21 at [address] Amended: Links added.
[2021-07-10] MEDS: traMADol 50MG tablet PO PRN ×2 (13:28→22:41)
--- NOTE | 2021-07-10 15:31 | NUR ---
All wound care and pictures taken with SANJAY DOWNS.
--- NOTE | 2021-07-10 15:34 | NUR ---
Student documentation: I have reviewed all interventions, assessments performed and documented by Luna RICHARDS of [facility] . Student Medication Administration: For all medication-pass' in the time frame of 5425-8180, all medications were reviewed, dispensed, administered and documented per hospital policy by Luna RICHARDS of [facility] .
[2021-07-10] MEDS ORDERED: VANCOMYCIN 1GM/200ML IVPB 200 ML IV SCH (16:00)
--- NOTE | 2021-07-10 18:14 | NUR ---
Problems reprioritized. Patient report given, questions answered & plan of care reviewed.
[2021-07-10 19:00] VITALS: BP 144/68
[2021-07-10] MEDS: insulin glargine (Lantus) pen - multi-dose SQ SCH (21:00)
--- NOTE | 2021-07-10 21:07 | NUR ---
BLOOD SUGAR 160, PT ATE A NIGHT SNACK. Addendum: 07/10/21 at 2107 by Gabby Llanos RN Amended: Links added.
[2021-07-10] MEDS: morphine 2 MG/ML inj. syringe IV PRN (23:07)
[2021-07-11] VITALS: BP 139/67
--- NOTE | 2021-07-11 00:57 | NUR ---
Patient complained on chest around 2200. In house Dr. Ferrari made aware, EKG done ,and ordered the one time dose of Morphine 2mg. At 2300, patient stated feeling no chest pain, feeling completely relieved.
[2021-07-11] MEDS: piperacillin/tazo 3.375gm/50ml 50 ML IV SCH ×4 (01:39→23:58)
[2021-07-11 02:59] LABS: ALBUMIN 1.9 G/DL (3.4-5.0); ANION GAP 6 (8-16); BLOOD UREA NITROGEN 27 MG/DL (7-18); BUN/CREATININE RATIO 31.8 (6.6-38.0); CALCIUM 8.1 MG/DL (8.5-10.1); CHLORIDE 102 MMOL/L (99-107); CREATININE 0.85 MG/DL (0.40-0.90); GLUCOSE 124 MG/DL (70-104); MAGNESIUM 1.6 MG/DL (1.5-2.4); POTASSIUM 3.8 MMOL/L (3.5-5.1); SODIUM 136 MMOL/L (135-145); TOTAL CARBON DIOXIDE 28.2 MMOL/L (24-32); eGFR 66 ML/MIN
[2021-07-11 06:01] LABS: BASOPHILS % (AUTO) 0.6 % (0-1); EOSINOPHILS # (AUTO) 0.1 X10'3 (0-0.9); EOSINOPHILS % (AUTO) 1.7 % (0-6); HEMATOCRIT 26.7 % (35.0-45.0); HEMOGLOBIN 8.8 g/dl (12.0-16.0); LYMPHOCYTES # (AUTO) 1.4 X10'3 (1.1-4.8); LYMPHOCYTES % (AUTO) 22.6 % (21-51); MEAN CORPUSCULAR HEMOGLOBIN 26.6 PG (27.0-31.0); MEAN CORPUSCULAR VOLUME 80.5 FL (78-98); MEAN PLATELET VOLUME 7.3 FL (7.4-10.4); MONOCYTES # (AUTO) 0.7 X10'3 (0-0.9); MONOCYTES % (AUTO) 10.8 % (2-12); NEUTROPHILS % (AUTO) 64.3 % (42-75); PLATELET COUNT 182 X10'3 (140-440); RED BLOOD COUNT 3.32 X10'6 (4.20-5.60); RED CELL DISTRIBUTION WIDTH 13.6 % (11.5-14.5); WHITE BLOOD COUNT 6.3 X10'3 (4.5-11.0)
--- NOTE | 2021-07-11 06:33 | NUR ---
Patient in room [facility]. I have received report and had the opportunity to ask questions and assume patient care.
[2021-07-11] MEDS: morphine 2 MG/ML inj. syringe IV PRN (06:57)
[2021-07-11] MEDS: K and/or MAG REPLACEMENT MC SCH ×2 (08:00→19:04)
[2021-07-11] MEDS ORDERED: VANCOMYCIN LEVEL IV ONE (09:30)
[2021-07-11 11:00] VITALS: BP 152/76
--- NOTE | 2021-07-11 11:24 | NUR ---
Wound consult: Pt admitted w/ BLE cellulitis and DM per EMR, A1c 12. Per WOC, pt w/ unstageable wound to R heel, R prado venous ulcer, L heel DTI and L calf cellulitis. Pt continues to be documented as confused, not appropriate for DM ed at this time. Pt currently on Carb Controlled diet w/ mostly 75% intake of meals partially meeting needs. Pt could benefit from Higinio Smoothies BID to assist w/ wound heeling. No BM documented this admit, recommend addition of routine bowel care if MD agreeable. Will continue to monitor. Recs: 1. Continue Carb Controlled diet as tolerated 2. Higinio Smoothies BIDBD; pending MD verification 3. Routine bowel care 4. Scaled wt this admit Addendum: 07/11/21 at [address] Amended: Links added.
[2021-07-11] MEDS: VANCOMYCIN 1GM/200ML IVPB 200 ML IV SCH ×2 (12:25→22:15)
--- NOTE | 2021-07-11 14:11 | NUR ---
Student documentation: I have reviewed all interventions, assessments performed and documented by Luna RICHARDS. Student Medication Administration: For all medication-pass' in the time frame of 8495-6241, all medications were reviewed, dispensed, administered and documented per hospital policy by Luna RICHARDS.
--- NOTE | 2021-07-11 14:30 | NUR ---
Wound care provided to BLE. Patient tolerated well. Denies new or worsening pain. Patient's BLE were wrapped in gauze and then placed in boots. Heels floated. Dressings clean dry and in tact.
[2021-07-11] MEDS: JUVEN Smoothie Arginine/Glut./Ca2+Bmb (Juven 19.3pkt) 240ml cup PO SCH (17:30)
[2021-07-11 18:00] VITALS: BP 152/76
--- NOTE | 2021-07-11 18:10 | NUR ---
Problems reprioritized. Patient report given, questions answered & plan of care reviewed with MAGDA DOWNS.
[2021-07-11] MEDS: insulin Lispro (HumaLOG) vial - multi-dose SQ SCH (19:07)
[2021-07-11] MEDS: nystatin 15 GM powder TP SCH (19:52)
[2021-07-11] MEDS: insulin glargine (Lantus) pen - multi-dose SQ SCH (22:25)
[2021-07-11] MEDS: traMADol 50MG tablet PO PRN (22:29)
[2021-07-12] VITALS: BP 140/70
--- NOTE | 2021-07-12 03:46 | NUR ---
Patient decided to remove the surgical boots received on the 07/11, stating that they are too heavy for her.
--- NOTE | 2021-07-12 05:51 | NUR ---
Right heel dressing changed and resident decided to remove the medical boots from yesterday.
--- NOTE | 2021-07-12 06:09 | NUR ---
Order for incentive spirometer received, but patient declined to use it because she has no teeth.
[2021-07-12 06:26] LABS: BASOPHILS % (AUTO) 0.5 % (0-1); EOSINOPHILS # (AUTO) 0.1 X10'3 (0-0.9); EOSINOPHILS % (AUTO) 2.1 % (0-6); HEMATOCRIT 26.3 % (35.0-45.0); HEMOGLOBIN 8.8 g/dl (12.0-16.0); LYMPHOCYTES # (AUTO) 1.1 X10'3 (1.1-4.8); LYMPHOCYTES % (AUTO) 15.5 % (21-51); MEAN CORPUSCULAR HGB CONC 33.5 g/dL (33.0-36.5); MEAN CORPUSCULAR VOLUME 80.5 FL (78-98); MEAN PLATELET VOLUME 7.4 FL (7.4-10.4); MONOCYTES # (AUTO) 0.8 X10'3 (0-0.9); MONOCYTES % (AUTO) 11.5 % (2-12); NEUTROPHILS # (AUTO) 4.9 X10'3 (1.8-7.7); NEUTROPHILS % (AUTO) 70.4 % (42-75); PLATELET COUNT 186 X10'3 (140-440); RED BLOOD COUNT 3.27 X10'6 (4.20-5.60); RED CELL DISTRIBUTION WIDTH 13.6 % (11.5-14.5)
[2021-07-12 06:54] LABS: ANION GAP 6 (8-16); BLOOD UREA NITROGEN 23 MG/DL (7-18); BUN/CREATININE RATIO 29.1 (6.6-38.0); CALCIUM 8.2 MG/DL (8.5-10.1); CHLORIDE 104 MMOL/L (99-107); CREATININE 0.79 MG/DL (0.40-0.90); MAGNESIUM 1.6 MG/DL (1.5-2.4); POTASSIUM 4.1 MMOL/L (3.5-5.1); SODIUM 139 MMOL/L (135-145); TOTAL CARBON DIOXIDE 29.4 MMOL/L (24-32); eGFR 72 ML/MIN
[2021-07-12 06:56] LABS: GLUCOSE 48 MG/DL (70-104)
[2021-07-12 07:00] VITALS: BP 120/63
--- NOTE | 2021-07-12 07:03 | NUR ---
nurse notified and protocol initiated. Addendum: 07/12/21 at 0704 by Roxanna Watt RN Amended: Links added.
[2021-07-12] MEDS: dextrose 50%-water 50ml dispensing syringe IV PRN (07:09)
--- NOTE | 2021-07-12 07:14 | NUR ---
BS 34, treated, recheck 57, treated. Will follow up per protocol.
[2021-07-12] MEDS: nystatin 15 GM powder TP SCH ×2 (07:25→20:00)
[2021-07-12] MEDS: K and/or MAG REPLACEMENT MC SCH ×2 (07:27→20:00)
[2021-07-12] MEDS: piperacillin/tazo 3.375gm/50ml 50 ML IV SCH (07:27)
[2021-07-12] MEDS: JUVEN Smoothie Arginine/Glut./Ca2+Bmb (Juven 19.3pkt) 240ml cup PO SCH (07:30)
[2021-07-12] MEDS ORDERED: CefTRIAXone 2gm/D5W 50ml BAG 50 ML IV SCH (10:50)
[2021-07-12] MEDS ORDERED: CefTRIAXone inj 2,000 MG in dextrose 5%-water 100 ML IV SCH (10:59)
[2021-07-12 11:00] VITALS: BP 143/78
[2021-07-12] MEDS ORDERED: CefTRIAXone inj 2,000 MG in dextrose 5%-water 100 ML IV ONE (11:00)
[2021-07-12] MEDS: VANCOMYCIN 1GM/200ML IVPB 200 ML IV SCH ×2 (11:19→21:31)
[2021-07-12] MEDS: lisinopril 20mg tablet PO SCH (11:20)
[2021-07-12] MEDS: aspirin 81mg, enteric-coated 1 TAB TABLET.DR PO SCH (11:20)
[2021-07-12 11:33] LABS: % IRON SATURATION 15 % (11-46); IRON 30 UG/DL (49-151); TOTAL IRON BINDING CAPACITY 206 UG/DL (259-388)
[2021-07-12] MEDS: traMADol 50MG tablet PO PRN ×2 (11:51→21:31)
[2021-07-12] MEDS: insulin glargine (Lantus) pen - multi-dose SQ SCH ×2 (12:20→21:38)
--- NOTE | 2021-07-12 12:20 | NUR ---
Humalog discontinued, new order to start patient on scheduled Lantus 11 units BID.
[2021-07-12] MEDS: normal saline 500ml IV soln 500 ML IV PRN (16:34)
--- NOTE | 2021-07-12 17:26 | NUR ---
Patient had 2 milks just before accu check of 303
--- NOTE | 2021-07-12 18:32 | NUR ---
Patient in room [facility]. I have received report from YARELI AGUILERA and had the opportunity to ask questions and assume patient care. Addendum: 07/12/21 at 1833 by Ewelina Manriquez RN Amended: Links added.
[2021-07-12 20:00] VITALS: BP 166/72
[2021-07-12] MEDS: metroNIDAZOLE 500mg tablet PO SCH (21:30)
[2021-07-12] MEDS: pramipexole 0.25mg tablet PO SCH (21:30)
[2021-07-12] MEDS: famotidine 20mg tablet PO SCH (21:30)
[2021-07-13] VITALS: BP 156/76
--- NOTE | 2021-07-13 02:20 | NUR ---
PT RESPOSITIONED IN BED FOR COMFORT. WICC WORKING WELL AND TAYLOR BOOTS ON. CONTINUE TO FLOAT PT HEELS.
--- NOTE | 2021-07-13 06:15 | NUR ---
Problems reprioritized. Patient report given, questions answered & plan of care reviewed with KIMBERLY DOWNS. Addendum: 07/13/21 at 0615 by Ewelina Manriquez RN Amended: Links added.
[2021-07-13 06:54] LABS: ALBUMIN 1.9 G/DL (3.4-5.0); ANION GAP 7 (8-16); BLOOD UREA NITROGEN 26 MG/DL (7-18); BUN/CREATININE RATIO 25.7 (6.6-38.0); CALCIUM 8.2 MG/DL (8.5-10.1); CHLORIDE 102 MMOL/L (99-107); CREATININE 1.01 MG/DL (0.40-0.90); GLUCOSE 219 MG/DL (70-104); MAGNESIUM 1.7 MG/DL (1.5-2.4); POTASSIUM 4.6 MMOL/L (3.5-5.1); SODIUM 136 MMOL/L (135-145); TOTAL CARBON DIOXIDE 26.6 MMOL/L (24-32); eGFR 54 ML/MIN
[2021-07-13 06:56] LABS: BASOPHILS % (AUTO) 0.3 % (0-1); EOSINOPHILS # (AUTO) 0.2 X10'3 (0-0.9); HEMATOCRIT 26.3 % (35.0-45.0); HEMOGLOBIN 8.9 g/dl (12.0-16.0); LYMPHOCYTES # (AUTO) 1.2 X10'3 (1.1-4.8); LYMPHOCYTES % (AUTO) 16.2 % (21-51); MEAN CORPUSCULAR HGB CONC 33.7 g/dL (33.0-36.5); MEAN CORPUSCULAR VOLUME 80.2 FL (78-98); MEAN PLATELET VOLUME 7.2 FL (7.4-10.4); MONOCYTES # (AUTO) 0.7 X10'3 (0-0.9); MONOCYTES % (AUTO) 9.1 % (2-12); NEUTROPHILS # (AUTO) 5.4 X10'3 (1.8-7.7); NEUTROPHILS % (AUTO) 72.4 % (42-75); PLATELET COUNT 193 X10'3 (140-440); RED BLOOD COUNT 3.28 X10'6 (4.20-5.60); RED CELL DISTRIBUTION WIDTH 13.6 % (11.5-14.5); WHITE BLOOD COUNT 7.5 X10'3 (4.5-11.0)
[2021-07-13 07:00] VITALS: BP 101/85
[2021-07-13] MEDS: JUVEN Smoothie Arginine/Glut./Ca2+Bmb (Juven 19.3pkt) 240ml cup PO SCH ×3 (07:30→17:30)
[2021-07-13] MEDS: K and/or MAG REPLACEMENT MC SCH ×2 (08:00→20:00)
[2021-07-13] MEDS: metroNIDAZOLE 500mg tablet PO SCH ×2 (08:38→20:39)
[2021-07-13] MEDS: aspirin 81mg, enteric-coated 1 TAB TABLET.DR PO SCH (08:38)
[2021-07-13] MEDS: famotidine 20mg tablet PO SCH (08:38)
[2021-07-13] MEDS: lisinopril 20mg tablet PO SCH (08:38)
[2021-07-13] MEDS: insulin glargine (Lantus) pen - multi-dose SQ SCH ×2 (08:47→20:33)
[2021-07-13] MEDS: nystatin 15 GM powder TP SCH ×2 (08:49→20:40)
[2021-07-13] MEDS: VANCOMYCIN 1GM/200ML IVPB 200 ML IV SCH (10:44)
[2021-07-13 11:00] VITALS: BP 171/81
[2021-07-13] MEDS: traMADol 50MG tablet PO PRN ×2 (11:26→20:39)
--- NOTE | 2021-07-13 13:14 | NUR ---
Dr. Hummel seen patient. Wound dressing changed after Dr. Hummel assessed the wounds on patient's right heel
--- NOTE | 2021-07-13 18:33 | NUR ---
Patient in room [facility]. I have received report from YARELI Weiner and had the opportunity to ask questions and assume patient care.
[2021-07-13 19:00] VITALS: BP 162/83
[2021-07-13] MEDS: pramipexole 0.25mg tablet PO SCH (20:39)
[2021-07-13] MEDS: normal saline 500ml IV soln 500 ML IV PRN (21:00)
[2021-07-13] MEDS ORDERED: VANCOMYCIN LEVEL IV ONE (21:30)
[2021-07-14] VITALS: BP 156/80
[2021-07-14 06:08] LABS: BASOPHILS % (AUTO) 0.6 % (0-1); EOSINOPHILS # (AUTO) 0.3 X10'3 (0-0.9); EOSINOPHILS % (AUTO) 4.5 % (0-6); HEMATOCRIT 27.6 % (35.0-45.0); HEMOGLOBIN 9.2 g/dl (12.0-16.0); LYMPHOCYTES # (AUTO) 1.3 X10'3 (1.1-4.8); MEAN CORPUSCULAR HEMOGLOBIN 26.7 PG (27.0-31.0); MEAN CORPUSCULAR HGB CONC 33.2 g/dL (33.0-36.5); MEAN CORPUSCULAR VOLUME 80.3 FL (78-98); MONOCYTES # (AUTO) 0.6 X10'3 (0-0.9); MONOCYTES % (AUTO) 10.4 % (2-12); NEUTROPHILS # (AUTO) 3.5 X10'3 (1.8-7.7); NEUTROPHILS % (AUTO) 61.5 % (42-75); PLATELET COUNT 211 X10'3 (140-440); RED BLOOD COUNT 3.44 X10'6 (4.20-5.60); RED CELL DISTRIBUTION WIDTH 13.7 % (11.5-14.5); WHITE BLOOD COUNT 5.7 X10'3 (4.5-11.0)
[2021-07-14 06:27] LABS: ALBUMIN 1.8 G/DL (3.4-5.0); ANION GAP 3 (8-16); BLOOD UREA NITROGEN 26 MG/DL (7-18); BUN/CREATININE RATIO 38.8 (6.6-38.0); CALCIUM 8.1 MG/DL (8.5-10.1); CHLORIDE 103 MMOL/L (99-107); CREATININE 0.67 MG/DL (0.40-0.90); GLUCOSE 73 MG/DL (70-104); POTASSIUM 4.2 MMOL/L (3.5-5.1); SODIUM 135 MMOL/L (135-145); TOTAL CARBON DIOXIDE 29.4 MMOL/L (24-32); eGFR 87 ML/MIN
--- NOTE | 2021-07-14 06:45 | NUR ---
Problems reprioritized. Patient report given, questions answered & plan of care reviewed with YARELI Kruger.
[2021-07-14 07:08] LABS: VANCOMYCIN,RANDOM 20.2 UG/ML
[2021-07-14 08:00] VITALS: BP 155/71
[2021-07-14] MEDS: K and/or MAG REPLACEMENT MC SCH ×2 (08:00→20:00)
[2021-07-14] MEDS: CefTRIAXone inj 2,000 MG in dextrose 5%-water 50ml 50 ML IV SCH (08:16)
[2021-07-14] MEDS: lisinopril 20mg tablet PO SCH (08:19)
[2021-07-14] MEDS: aspirin 81mg, enteric-coated 1 TAB TABLET.DR PO SCH (08:19)
[2021-07-14] MEDS: JUVEN Smoothie Arginine/Glut./Ca2+Bmb (Juven 19.3pkt) 240ml cup PO SCH ×2 (08:19→17:40)
[2021-07-14] MEDS: metroNIDAZOLE 500mg tablet PO SCH ×2 (08:19→20:33)
[2021-07-14] MEDS: traMADol 50MG tablet PO PRN ×2 (08:20→20:40)
[2021-07-14] MEDS: nystatin 15 GM powder TP SCH ×2 (08:20→20:33)
[2021-07-14] MEDS: insulin glargine (Lantus) pen - multi-dose SQ SCH ×2 (08:27→20:00)
[2021-07-14] MEDS: VANCOMYCIN 1GM/200ML IVPB 200 ML IV SCH (10:05)
[2021-07-14 11:00] VITALS: BP 149/80
--- NOTE | 2021-07-14 11:14 | NUR ---
PAGER ID: [phone] MESSAGE: Robby Joya 352 pt. c/o "regurgitation" several times. ST eval? Do you want NPO until then? Pt. diabetic. Saskia [phone]
--- NOTE | 2021-07-14 11:37 | NUR ---
Still awaiting response for page from hospitalist.
--- NOTE | 2021-07-14 11:48 | NUR ---
Reassessment: Pt currently on carb control diet and eating roughly 75% since last nutrition assessment 07/11 per EMR. Pt receiving Higinio smoothies BIDBD, w/ 25% intake 07/14 and meeting nutrient needs. international trade teacher provided verbal and written DM education w/ RD contact information at bedside. Pt noted that she has difficulty swallowing, regurgitates her food at times, and does not have teeth or dentures. international trade teacher discussed w/ RN ROAD DESIGN ENGINEER consultation in view of swallowing difficulties. Pt LBM 07/14. No new nutrition intervention implemented at this time. Will continue to monitor. Recs: 1. Continue Carb Controlled diet as tolerated 2. Higinio Smoothies BIDBD 3. Routine bowel care 4. Scaled wt this admit Addendum: 07/14/21 at [address] Amended: Links added. Addendum: 07/14/21 at [address] I have reviewed assessment by international first officer
--- NOTE | 2021-07-14 12:09 | NUR ---
PAGER ID: [phone] MESSAGE: Robby Joya 352 pt. c/o "regurgitation" several times. ST eval? Do you want NPO until then? Pt. diabetic. Saskia [phone]
[2021-07-14] MEDS: dextrose 5%-normal saline 1,000 ML IV SCH (14:17)
[2021-07-14 18:00] VITALS: BP 172/80
--- NOTE | 2021-07-14 18:10 | NUR ---
Gave report to Doc DOWNS.
[2021-07-14] MEDS: pramipexole 0.25mg tablet PO SCH (20:33)
--- NOTE | 2021-07-14 21:02 | NUR ---
Student Medication Administration: For this medication-pass time frame, all medication were reviewed, dispensed, administered and documented per hospital policy by Evette FERRO [facility].
--- NOTE | 2021-07-14 21:20 | NUR ---
Ray did not want to take lantus tonight due t obeing NPO. Patient states; " I will bottom out if I take it while NPO."
--- NOTE | 2021-07-14 23:18 | NUR ---
I agree with students documentation, and assessment.
[2021-07-15 00:18] VITALS: BP 151/75
--- NOTE | 2021-07-15 06:29 | NUR ---
Patient in room [facility]. I have received report from YARELI Carter and had the opportunity to ask questions and assume patient care.
--- NOTE | 2021-07-15 06:41 | NUR ---
Patient in room [facility]. I have received report from YARELI HUNTER and had the opportunity to ask questions and assume patient care. Addendum: 07/15/21 at 0644 by John Delatorre RN Patient in room [facility]. I have received report from YARELI PETERSON and had the opportunity to ask questions and assume patient care.
[2021-07-15] MEDS: JUVEN Smoothie Arginine/Glut./Ca2+Bmb (Juven 19.3pkt) 240ml cup PO SCH ×2 (07:30→18:08)
[2021-07-15] MEDS: K and/or MAG REPLACEMENT MC SCH ×2 (08:00→20:00)
[2021-07-15] MEDS: metroNIDAZOLE 500mg tablet PO SCH ×2 (08:41→20:41)
[2021-07-15] MEDS: CefTRIAXone inj 2,000 MG in dextrose 5%-water 50ml 50 ML IV SCH (08:41)
[2021-07-15] MEDS: aspirin 81mg, enteric-coated 1 TAB TABLET.DR PO SCH (08:42)
[2021-07-15] MEDS: lisinopril 20mg tablet PO SCH (08:42)
[2021-07-15] MEDS: famotidine 20mg tablet PO SCH (08:42)
[2021-07-15] MEDS: insulin glargine (Lantus) pen - multi-dose SQ SCH ×2 (08:50→20:47)
[2021-07-15] MEDS: nystatin 15 GM powder TP SCH ×2 (08:54→20:48)
[2021-07-15] MEDS: dextrose 5%-normal saline 1,000 ML IV SCH (09:55)
[2021-07-15] MEDS: VANCOMYCIN 1GM/200ML IVPB 200 ML IV SCH (11:35)
[2021-07-15 12:32] VITALS: BP 155/68
--- NOTE | 2021-07-15 14:43 | NUR ---
PAGER ID: [phone] MESSAGE: HI RE:352/JOHN PATIENT SUPPOSED TO BE ON PUREED DIET. SHE ORDERED SHRIMP AND DIET PESI BUT SHE HAS NOT EAT IT YET. I EDUCATED PATIENT THAT SHE IS ON PUREED FOR A REASON. YARELI CAMPA [id number]
--- NOTE | 2021-07-15 14:59 | NUR ---
Patient had a barium swallow test, patient has swallowing issue order received for pureed diet, credit underwriter educated patient the reason why pureed diet ordered patient showed understanding. During credit underwriter lunch break patient ordered shrimp and coleslaw via door dash. whiter and charge Nurse went to patient's room reeducated her and explained to her that she is not going to be able to eat the food. patient stated "THAT'S FINE". MD notified.
--- NOTE | 2021-07-15 15:18 | NUR ---
Patient persisted food given MD made aware.
--- NOTE | 2021-07-15 15:21 | NUR ---
WOUND INFECTION EDUCATION PROVIDED BY WOUND CARE 1. Patient instructed to call their primary doctor, or go the ED immediately if any of the following symptoms occur: * Increased pain in wound * Increase in drainage from the wound * Redness in the skin surrounding the wound * Warmth in the skin surrounding the wound * Bleeding from the wound * Temperature of 101 or greater 2. If any of these occur while in the hospital tell a nurse immediately. PRESSURE ULCER EDUCATION: DEFINITION: A pressure ulcer is an area of skin that breaks down when you stay in one position too long. The constant pressure against the skin reduces the blood flow to that area and the affected tissue dies. CAUSES: "Being bedridden or in a wheelchair "Fragile skin "Having a chronic condition, such as diabetes or vascular disease "Inability to move certain parts of your body without assistance "Older age "Incontinence of urine or stool SYMPTOMS: "A reddened area that DOES NOT turn white when pressed on - this can be the beginning of a pressure ulcer "A blister, deep sore or a crater - these can be advanced pressure ulcers FIRST AID: "Relieve the pressure on this area "Keep the area clean and dry "Call your primary doctor if you see any of the above symptoms "DO NOT massage the area "DO NOT use a donut shaped or ring shaped pillow- these actually interfere with the blood flow and cause complications PREVENTION: "Check for pressure ulcers everyday "Change position at least every two hours to relieve pressure "Use items that help relieve pressure- pillows, sheepskin, foam padding, and powders. "Keep skin clean and dry "Eat healthy well balanced meals "Exercise daily IF YOU SEE ANY OF THESE SYMPTOMS WHILE IN THE HOSPITAL - TELL YOUR NURSE IMMEDIATELY. IF YOU SEE ANY OF THESE SYMPTOMS WHILE AT HOME OR HAVE ANY QUESTIONS OR CONCERNS ABOUT PRESSURE ULCERS - CALL YOUR PRIMARY DOCTOR IMMEDIATELY. Addendum: 07/15/21 at 1522 by Jessenia Wynn RN Amended: Links added.
[2021-07-15 18:00] VITALS: BP 154/73
--- NOTE | 2021-07-15 18:42 | NUR ---
Problems reprioritized. Patient report given, questions answered & plan of care reviewed with JESSENIA DOWNS.
--- NOTE | 2021-07-15 18:48 | NUR ---
Patient in room [facility]. I have received report from YARELI Cooper and had the opportunity to ask questions and assume patient care.
[2021-07-15] MEDS: pramipexole 0.25mg tablet PO SCH (20:41)
[2021-07-15] MEDS: traMADol 50MG tablet PO PRN (20:43)
[2021-07-16 00:01] VITALS: BP 149/61
--- NOTE | 2021-07-16 06:18 | NUR ---
Problems reprioritized. Patient report given, questions answered & plan of care reviewed with YARELI Jameson.
[2021-07-16] MEDS: CefTRIAXone inj 2,000 MG in dextrose 5%-water 50ml 50 ML IV SCH (07:51)
[2021-07-16] MEDS: insulin glargine (Lantus) pen - multi-dose SQ SCH ×2 (07:57→20:07)
[2021-07-16] MEDS: aspirin 81mg, enteric-coated 1 TAB TABLET.DR PO SCH (07:58)
[2021-07-16] MEDS: metroNIDAZOLE 500mg tablet PO SCH ×2 (07:58→20:09)
[2021-07-16] MEDS: lisinopril 20mg tablet PO SCH (07:58)
[2021-07-16] MEDS: JUVEN Smoothie Arginine/Glut./Ca2+Bmb (Juven 19.3pkt) 240ml cup PO SCH ×2 (07:59→18:20)
[2021-07-16 08:00] VITALS: BP 166/75
[2021-07-16] MEDS: K and/or MAG REPLACEMENT MC SCH ×2 (08:00→20:00)
[2021-07-16] MEDS: nystatin 15 GM powder TP SCH ×2 (08:00→20:25)
[2021-07-16] MEDS ORDERED: VANCOMYCIN LEVEL IV ONE (09:30)
[2021-07-16] MEDS: VANCOMYCIN 1GM/200ML IVPB 200 ML IV SCH (09:53)
[2021-07-16] MEDS: dextrose 5%-normal saline 1,000 ML IV SCH (10:09)
[2021-07-16 12:16] VITALS: BP 139/80
--- NOTE | 2021-07-16 13:20 | NUR ---
PAGER ID: [phone] MESSAGE: HI RE:352/JOHN PATIENT REFUSES LUNCH AND STATED THAT "I AM GOING TO ORDER MY OWN LUNCH I'LL ORDER CHICKEN". I EDUCATED HER THAT SHE CAN ONLY EAT PUREED FOR NOW.BUT REFUSES TO COORPORATE. YARELI CAMPA [id number]
--- NOTE | 2021-07-16 13:22 | NUR ---
DR NOTIFIED THAT PATIENT REFUSED TO FOLLOW THE DIET THAT SHE IS ON (PUREED), ORDERED FOOD VIA DOOR DASH.
--- NOTE | 2021-07-16 13:44 | NUR ---
call received from DR Lee,it is ok for Patient to eat whatever she ordered.
--- NOTE | 2021-07-16 18:14 | NUR ---
Patient in room [facility]. I have received report from YARELI Lopez and had the opportunity to ask questions and assume patient care.
--- NOTE | 2021-07-16 18:29 | NUR ---
dwight reprioritized. Patient report given, questions answered & plan of care reviewed with JESSENIA DOWNS.
[2021-07-16 20:00] VITALS: BP 156/78
[2021-07-16] MEDS: pramipexole 0.25mg tablet PO SCH (20:09)
[2021-07-17] VITALS: BP 142/77
[2021-07-17] MEDS: dextrose 5%-normal saline 1,000 ML IV SCH (04:41)
[2021-07-17] MEDS: traMADol 50MG tablet PO PRN (04:42)
--- NOTE | 2021-07-17 06:44 | NUR ---
Problems reprioritized. Patient report given, questions answered & plan of care reviewed with YARELI Masters.
[2021-07-17] MEDS: K and/or MAG REPLACEMENT MC SCH ×2 (07:01→20:00)
[2021-07-17] MEDS: CefTRIAXone inj 2,000 MG in dextrose 5%-water 50ml 50 ML IV SCH (07:21)
[2021-07-17] MEDS: famotidine 20mg tablet PO SCH (07:21)
[2021-07-17] MEDS: aspirin 81mg, enteric-coated 1 TAB TABLET.DR PO SCH (07:21)
[2021-07-17] MEDS: lisinopril 20mg tablet PO SCH (07:22)
[2021-07-17] MEDS: metroNIDAZOLE 500mg tablet PO SCH ×2 (07:22→20:52)
[2021-07-17] MEDS: insulin glargine (Lantus) pen - multi-dose SQ SCH ×2 (07:28→20:58)
[2021-07-17] MEDS: JUVEN Smoothie Arginine/Glut./Ca2+Bmb (Juven 19.3pkt) 240ml cup PO SCH ×2 (07:30→17:30)
[2021-07-17] MEDS: nystatin 15 GM powder TP SCH ×2 (07:37→20:53)
[2021-07-17 08:00] VITALS: BP 152/75
[2021-07-17 10:08] LABS: D-DIMER 1.37 MG/L FEU (0-0.50)
[2021-07-17 11:00] VITALS: BP 162/93
--- NOTE | 2021-07-17 11:30 | NUR ---
Patient blood sugars in increasing into the 230's, per dr anderson increase lantus from 8 units bid to 12 units bid. Per nursing humalog drops patient too low and recommend sticking with home lantus order. Patient takes higher doses of lantus at home per med rec.
[2021-07-17] MEDS: VANCOMYCIN 1GM/200ML IVPB 200 ML IV SCH (11:32)
[2021-07-17] MEDS ORDERED: insulin glargine (Lantus) pen - multi-dose SQ ONE (11:40)
[2021-07-17] MEDS: normal saline 1000ml 1,000 ML IV SCH (17:44)
[2021-07-17 19:00] VITALS: BP 161/79
--- NOTE | 2021-07-17 19:09 | NUR ---
Report given to Barbara Jimenez Rn, blood sugars were better at 1400 check but then patient ordered door dash and ate large meal and 1700 check was back in 200's. D5NS dc'd and changed to NS. Lantus increase will be monitored for need for changes.Barbara Jimenez RN aware. Patient doing well, talking on phone in bed,no current complaints or concerns at this time.
[2021-07-17] MEDS: pramipexole 0.25mg tablet PO SCH (20:52)
[2021-07-18] VITALS: BP 166/75
--- NOTE | 2021-07-18 06:30 | NUR ---
Patient in room [facility]. I have received report from Gabby DOWNS and had the opportunity to ask questions and assume patient care.
[2021-07-18] MEDS: metroNIDAZOLE 500mg tablet PO SCH ×2 (07:41→21:25)
[2021-07-18] MEDS: lisinopril 20mg tablet PO SCH (07:42)
[2021-07-18] MEDS: aspirin 81mg, enteric-coated 1 TAB TABLET.DR PO SCH (07:42)
[2021-07-18] MEDS: nystatin 15 GM powder TP SCH ×2 (07:49→21:42)
[2021-07-18] MEDS: CefTRIAXone inj 2,000 MG in dextrose 5%-water 50ml 50 ML IV SCH (07:49)
[2021-07-18] MEDS: insulin glargine (Lantus) pen - multi-dose SQ SCH ×2 (07:55→21:24)
[2021-07-18] MEDS: K and/or MAG REPLACEMENT MC SCH ×2 (08:00→20:00)
[2021-07-18] MEDS: traMADol 50MG tablet PO PRN ×2 (08:09→21:27)
[2021-07-18] MEDS: JUVEN Smoothie Arginine/Glut./Ca2+Bmb (Juven 19.3pkt) 240ml cup PO SCH ×2 (08:09→17:30)
[2021-07-18 11:00] VITALS: BP 158/78
[2021-07-18] MEDS: VANCOMYCIN 1GM/200ML IVPB 200 ML IV SCH (11:41)
[2021-07-18 14:36] VITALS: BP 159/75
[2021-07-18] MEDS: normal saline 1000ml 1,000 ML IV SCH ×2 (15:23→21:49)
--- NOTE | 2021-07-18 18:20 | NUR ---
Patient in room [facility]. I have received report from Han DOWNS and had the opportunity to ask questions and assume patient care.
--- NOTE | 2021-07-18 18:30 | NUR ---
Problems reprioritized. Patient report given, questions answered & plan of care reviewed with Monica DOWNS.
[2021-07-18 19:00] VITALS: BP 149/79
[2021-07-18] MEDS: pramipexole 0.25mg tablet PO SCH (21:28)
[2021-07-19] VITALS: BP 160/85
[2021-07-19 06:33] LABS: BASOPHILS # (AUTO) 0.1 X10'3 (0-0.2); BASOPHILS % (AUTO) 0.9 % (0-1); EOSINOPHILS # (AUTO) 0.2 X10'3 (0-0.9); EOSINOPHILS % (AUTO) 3.6 % (0-6); HEMOGLOBIN 8.9 g/dl (12.0-16.0); LYMPHOCYTES # (AUTO) 1.6 X10'3 (1.1-4.8); LYMPHOCYTES % (AUTO) 24.2 % (21-51); MEAN CORPUSCULAR HEMOGLOBIN 26.6 PG (27.0-31.0); MEAN CORPUSCULAR HGB CONC 32.8 g/dL (33.0-36.5); MEAN CORPUSCULAR VOLUME 81.1 FL (78-98); MEAN PLATELET VOLUME 6.6 FL (7.4-10.4); MONOCYTES # (AUTO) 0.5 X10'3 (0-0.9); MONOCYTES % (AUTO) 7.8 % (2-12); NEUTROPHILS # (AUTO) 4.3 X10'3 (1.8-7.7); NEUTROPHILS % (AUTO) 63.5 % (42-75); PLATELET COUNT 315 X10'3 (140-440); RED BLOOD COUNT 3.33 X10'6 (4.20-5.60); WHITE BLOOD COUNT 6.7 X10'3 (4.5-11.0)
--- NOTE | 2021-07-19 06:35 | NUR ---
Problems reprioritized. Patient report given, questions answered & plan of care reviewed with Han RN.
[2021-07-19 06:42] LABS: ALANINE AMINOTRANSFERASE 9 U/L (12-78); ALBUMIN 1.6 G/DL (3.4-5.0); ALBUMIN/GLOBULIN RATIO 0.4 (1.1-1.5); ALKALINE PHOSPHATASE 310 IU/L (46-116); ANION GAP 4 (8-16); ASPARTATE AMINO TRANSFERASE 15 U/L (10-37); BILIRUBIN,TOTAL 0.1 MG/DL (0.1-1.0); BLOOD UREA NITROGEN 25 MG/DL (7-18); BUN/CREATININE RATIO 44.6 (6.6-38.0); CHLORIDE 105 MMOL/L (99-107); CREATININE 0.56 MG/DL (0.40-0.90); GLUCOSE 117 MG/DL (70-104); POTASSIUM 4.2 MMOL/L (3.5-5.1); SODIUM 136 MMOL/L (135-145); TOTAL CARBON DIOXIDE 27.4 MMOL/L (24-32); TOTAL PROTEIN 5.5 G/DL (6.4-8.2); eGFR > 90 ML/MIN
[2021-07-19 07:04] VITALS: BP 154/77
[2021-07-19] MEDS: JUVEN Smoothie Arginine/Glut./Ca2+Bmb (Juven 19.3pkt) 240ml cup PO SCH (07:30)
[2021-07-19] MEDS: K and/or MAG REPLACEMENT MC SCH (08:00)
[2021-07-19] MEDS: lisinopril 20mg tablet PO SCH (09:29)
[2021-07-19] MEDS: famotidine 20mg tablet PO SCH (09:29)
[2021-07-19] MEDS: metroNIDAZOLE 500mg tablet PO SCH (09:30)
[2021-07-19] MEDS: aspirin 81mg, enteric-coated 1 TAB TABLET.DR PO SCH (09:30)
[2021-07-19] MEDS: CefTRIAXone inj 2,000 MG in dextrose 5%-water 50ml 50 ML IV SCH (09:30)
[2021-07-19] MEDS: insulin glargine (Lantus) pen - multi-dose SQ SCH (09:48)
[2021-07-19] MEDS: nystatin 15 GM powder TP SCH (09:49)
[2021-07-19 10:00] VITALS: BP 154/81
[2021-07-19] MEDS: VANCOMYCIN 1GM/200ML IVPB 200 ML IV SCH (10:30)
--- NOTE | 2021-07-19 11:06 | NUR ---
Reassessment: Pt currently on carb control now pureed diet w/ DIPLOMATIC OFFICER recommendations avg PO meals 56% and 28% PO supplement since last nutrition assessment 07/14 meeting 85% protein needs and 96% energy needs. LBM 07/17. No new nutrition intervention implemented at this time. Will continue to monitor. Recs: 1. Continue carb control/pureed diet as tolerated/per DIPLOMATIC OFFICER recs 2. Higinio Smoothies BIDBD 3. Routine bowel care 4. Scaled wt this admit Addendum: 07/19/21 at [address] Amended: Links added. Addendum: 07/19/21 at [address] I have reviewed assessment by internet architect
--- NOTE | 2021-07-19 15:13 | NUR ---
Problems reprioritized. Patient report given, questions answered & plan of care reviewed with Evelia at [facility].
--- NOTE | 2021-07-19 15:18 | NUR ---
IV removed by student nurse @1500 prior to discharge
[2021-07-19] MEDS ORDERED: famotidine 20mg tablet PO SCH (20:00)
== END 2021-07-19 15:11 | DRG 603 ==
LOC: ER 13:31 → ED HOLD 17:31 → SUR 3N 20:55
PROVIDERS: ADMIT Internal Medicine; ATTEND Internal Medicine
DX: L03.115 Cellulitis of right lower limb (principal); E44.1 Mild protein-calorie malnutrition; L97.829 Non-pressure chronic ulcer of other part of left lower leg with unspecified severity; E11.52 Type 2 diabetes mellitus with diabetic peripheral angiopathy with gangrene; L03.116 Cellulitis of left lower limb; L89.619 Pressure ulcer of right heel, unspecified stage; R13.10 Dysphagia, unspecified; D64.9 Anemia, unspecified; G25.81 Restless legs syndrome; M19.90 Unspecified osteoarthritis, unspecified site; M10.9 Gout, unspecified; F15.90 Other stimulant use, unspecified, uncomplicated; I10 Essential (primary) hypertension; Z20.822 Contact with and (suspected) exposure to COVID-19; E11.649 Type 2 diabetes mellitus with hypoglycemia without coma; T38.3X6A Underdosing of insulin and oral hypoglycemic [antidiabetic] drugs, initial encounter; K21.9 Gastro-esophageal reflux disease without esophagitis; Z79.4 Long term (current) use of insulin; Z91.19 Patient's noncompliance with other medical treatment and regimen; Y92.89 Other specified places as the place of occurrence of the external cause; Z90.710 Acquired absence of both cervix and uterus; Z68.25 Body mass index [BMI] 25.0-25.9, adult; Z88.8 Allergy status to other drugs, medicaments and biological substances; Z79.899 Other long term (current) drug therapy; Z79.82 Long term (current) use of aspirin; Z91.011 Allergy to milk products
CPT/HCPCS: 36415; 71045; 73590; 73620; 73630; 73700; 74230; 80048; 80053; 80202; 82948; 83036; 83540; 83550; 83735; 83880; 84484; 85025; 85379; 85651; 86140; 87081; 87635; 92508; 93005; 93306; 93925; 96365; 96368; 97110; 97116; 97161; 97530; 97535; 99285; G0378; J0696; J1815; J2270; J2405; J2543; J3370; J3490; J7030; J7040; J7042; J7060

== ENCOUNTER 2022-04-24 14:09 | Emergency (ER) | payer MEDICARE ==
[~2022-04-24] VITALS: Ht 165.1 cm; Wt 68.0 kg
[~2022-04-24 14:09] MED LIST changes: -AMLO5TAB4 PO; +ASPI-1071 PO; -ASPI-1264 PO; -FAMO-128 PO; +FAMO20TA8 PO; -HYDR-3965 PO; -HYDR-4070 PO; -INSU100V36 SQ; -INSU100V9 SQ; +LANTUS SQ; +PRAM0.5T12 PO; -PRAM0.5T3 PO
[2022-04-25 04:03] LABS: BASOPHILS # (AUTO) 0.1 X10'3 (0-0.2); BASOPHILS % (AUTO) 1.1 % (0-1); EOSINOPHILS # (AUTO) 0.3 X10'3 (0-0.9); EOSINOPHILS % (AUTO) 4.9 % (0-6); HEMATOCRIT 29.5 % (35.0-45.0); HEMOGLOBIN 10.1 g/dl (12.0-16.0); LYMPHOCYTES # (AUTO) 1.4 X10'3 (1.1-4.8); LYMPHOCYTES % (AUTO) 24.1 % (21-51); MEAN CORPUSCULAR HEMOGLOBIN 28.7 PG (27.0-31.0); MEAN CORPUSCULAR HGB CONC 34.2 g/dL (33.0-36.5); MEAN CORPUSCULAR VOLUME 83.9 FL (78-98); MEAN PLATELET VOLUME 7.2 FL (7.4-10.4); MONOCYTES # (AUTO) 0.3 X10'3 (0-0.9); MONOCYTES % (AUTO) 6.1 % (2-12); NEUTROPHILS # (AUTO) 3.6 X10'3 (1.8-7.7); NEUTROPHILS % (AUTO) 63.8 % (42-75); PLATELET COUNT 243 X10'3 (140-440); RED BLOOD COUNT 3.51 X10'6 (4.20-5.60); RED CELL DISTRIBUTION WIDTH 14.2 % (11.5-14.5); WHITE BLOOD COUNT 5.6 X10'3 (4.5-11.0)
[2022-04-25 04:07] LABS: ALANINE AMINOTRANSFERASE 15 U/L (12-78); ALBUMIN 2.6 G/DL (3.4-5.0); ALBUMIN/GLOBULIN RATIO 0.7 (1.1-1.5); ALKALINE PHOSPHATASE 232 IU/L (46-116); ANION GAP 5 (8-16); ASPARTATE AMINO TRANSFERASE 14 U/L (10-37); BILIRUBIN,TOTAL 0.2 MG/DL (0.1-1.0); BLOOD UREA NITROGEN 39 MG/DL (7-18); BUN/CREATININE RATIO 35.8 (6.6-38.0); CALCIUM 8.6 MG/DL (8.5-10.1); CHLORIDE 96 MMOL/L (99-107); CREATININE 1.09 MG/DL (0.40-0.90); GLUCOSE 422 MG/DL (70-104); POTASSIUM 4.4 MMOL/L (3.5-5.1); SODIUM 131 MMOL/L (135-145); TOTAL CARBON DIOXIDE 30.1 MMOL/L (24-32); TOTAL PROTEIN 6.3 G/DL (6.4-8.2); eGFR 49 ML/MIN
[2022-04-25 06:04] VITALS: BP 145/73
[2022-04-25] MEDS ORDERED: normal saline 500ml IV soln 500 ML IV ONE (06:05)
[2022-04-25] MEDS ORDERED: carbamide peroxide 15ml bottle LEFT EAR SCH (08:00)
[2022-04-25 08:38] LABS: GLUCOSE, URINE 250 mg/dl (Neg); KETONES,URINE NEGATIVE (Neg); LEUKOCYTE ESTERASE ,URINE MODERATE (Neg); NITRITES, URINE POSITIVE (Neg); OCCULT BLOOD,URINE LARGE (Neg); PROTEIN,URINE 100 mg/dl (Neg); UROBILINOGEN,URINE 0.2 E.U/dL (0.2-1.0)
[2022-04-25 08:46] LABS: COLOR,URINE DARK YELLOW (Yellow); UA COLLECTION TYPE VOIDED
[2022-04-25 08:47] LABS: CLARITY,URINE CLOUDY (Clear)
[2022-04-25 08:50] LABS: BACTERIA,URINE 2+ /HPF (Neg); MUCUS STRANDS FEW /LPF (Neg); RBC,URINE TNTC /HPF (0-2); SQUAMOUS EPITHELIAL CELL,UR MODERATE /LPF (FEW); TRANSITIONAL EPI CELLS,URINE MODERATE /HPF; WBC,URINE TNTC /HPF (0-4)
[2022-04-25 08:51] LABS: WBC CLUMPS,URINE MANY /HPF (NEGATIVE)
--- NOTE | 2022-04-25 10:19 | NUR ---
TC FROM [facility] AND INFORMATION GIVEN ABOUT PATIENT. PROTECTIVE SERVICES SUGGESTS THAT SAFE DISHARGE FOR THE PATIENT WOULD BE THE [facility], IF PATIENT IS NOT WILLING TO GO WITH HER SISTER TO [place]. PATIENT TOLD ANOTHER STAFF NURSE THAT SHE HAS A MOTEL ROOM? WHICH IS NOT INFORMATION THAT WAS SHARED WITH STAFF EARLIER IN THE ADMISSION.
[2022-04-25] MEDS ORDERED: CefTRIAXone/D5W-Rocephin 1gm 50 ML IV ONE (10:30)
[2022-04-25] MEDS ORDERED: LANTUS SQ (11:44)
[2022-04-25] MEDS ORDERED: PRAM0.5T3 PO (11:44)
[2022-04-25] MEDS ORDERED: CEPH-585 PO (11:44)
[2022-04-25] MEDS ORDERED: LISI20TA28 PO (11:44)
[2022-04-25] MEDS ORDERED: FAMO-128 PO (11:44)
== END 2022-04-25 12:21 | disposition home or self-care (01) ==
LOC: ER 14:09
DX: N39.0 Urinary tract infection, site not specified (principal); Z20.822 Contact with and (suspected) exposure to COVID-19; R09.89 Other specified symptoms and signs involving the circulatory and respiratory systems; H61.22 Impacted cerumen, left ear; I10 Essential (primary) hypertension; E11.9 Type 2 diabetes mellitus without complications; M19.90 Unspecified osteoarthritis, unspecified site; M10.9 Gout, unspecified; F15.90 Other stimulant use, unspecified, uncomplicated; Z64.4 Discord with counselors; Z85.9 Personal history of malignant neoplasm, unspecified; Z90.710 Acquired absence of both cervix and uterus; Z88.8 Allergy status to other drugs, medicaments and biological substances; Z79.82 Long term (current) use of aspirin; Z79.4 Long term (current) use of insulin; Z79.899 Other long term (current) drug therapy
CPT/HCPCS: 36415; 80053; 81001; 85025; 87088; 87186; 87502; 87503; 87635; 96365; 99284; C9803; J0696; J7040; 87077